=== PATIENT | female | born 1975 | race Caucasian/White ===

== ENCOUNTER 2020-09-07 10:55 | Outpatient (REF) | payer BC, SELFPAY ==
--- NOTE | 2020-09-07 11:00 | MM_ITS ---
EXAMINATION: MM DIAGNOSTIC DIGITAL BREAST TOMOSYNTHESIS, BILATERAL CLINICAL INFORMATION: Probable benign asymmetric density lateral right breast initially noted at baseline exam. Due for yearly. No known family history breast cancer. The lifetime risk of breast cancer based on the Tyrer-Cuzick Model is 12%. COMPARISON: Mammography: 09/02/2019, 02/11/2019, 07/23/2018, 07/09/2018 (BI-RADS 0). TECHNIQUE: Digital breast tomosynthesis is performed in both the craniocaudal and mediolateral oblique views along with computer-aided detection (CAD). Synthesized 2D images are generated from the tomosynthesis. FINDINGS: There are scattered areas of fibroglandular density (ACR BI-RADS breast composition Category b). Parenchymal pattern is similar to prior studies. Island fibroglandular tissue versus intramammary node outer right breast is stable since initial baseline exam 2017. This is considered benign. Other fibroglandular densities are also similar to prior studies. There is no developing density or interval mass or architectural abnormality. No abnormal calcifications. Results are provided to the patient at time of visit by the technologist. MM/MM tomosynthesis diagnostic BI IMPRESSION: No mammographic evidence of malignancy. ASSESSMENT: BI-RADS 2: Benign RECOMMENDATION: Routine annual mammography screening. This patient's information was entered into a reminder system with a target due date for their next mammogram.
== END 2020-09-07 10:56 | disposition home or self-care (01) ==
LOC: HO.MAMMO 10:55
PROVIDERS: PCP Internal Medicine; Visit Provider Internal Medicine
DX: R92.2 Inconclusive mammogram (principal)
CPT/HCPCS: 77062; 77066

== ENCOUNTER 2020-12-14 10:19 | Outpatient (REF) | payer BC, SELFPAY ==
[2020-12-14 10:48] LABS: MANUAL DIFF FLAG NO
[2020-12-14 10:53] LABS: Basophils Absolute Auto 0.1 X10*3/uL (0.0-0.2); Basophils Percent Auto 0.8 % (0-2); Eosinophils Absolute Auto 0.2 X10*3/uL (0.0-0.4); Eosinophils Percent Auto 2.8 % (0-4); Hematocrit 41.5 % (37-47); Hemoglobin 13.1 g/dl (12.0-16.0); Imm Gran Abs Auto 0.02 X10*3/uL (0.00-0.03); Imm Gran Pct Auto 0.3 % (0.0-0.4); Lymphocytes Absolute Auto 2.1 X10*3/uL (1.2-4.9); Lymphocytes Percent Auto 32.7 % (20-40); Mean Corpuscular HGB Conc 31.6 g/dl (31.0-35.0); Mean Corpuscular Hemoglobin 28.2 pg (27.0-33.0); Mean Corpuscular Volume 89.4 fL (80-98); Monocytes Absolute Auto 0.5 X10*3/uL (0.1-1.2); Monocytes Percent Auto 7.6 % (2-11); Neutrophils Absolute Auto 3.6 X10*3/uL (2.0-8.3); Neutrophils Percent Auto 55.8 % (45-73); Platelet Count 245 X10*3/uL (160-400); Red Blood Count 4.64 X10*6/uL (4.20-5.50); Red Cell Distribution Width 12.7 % (11.0-16.0); White Blood Count 6.5 X10*3/uL (4.8-10.8)
[2020-12-14 11:31] LABS: Alanine Aminotransferase 15 U/L (0-31); Albumin Level 4.3 g/dL (3.5-5.0); Alkaline Phosphatase 54 U/L (39-117); Anion Gap 11 (12-20); Aspartate Amino Transferase 15 U/L (5-31); Bilirubin Total 0.7 mg/dL (0.0-1.0); Blood Urea Nitrogen 13 mg/dL (9-16); Calcium 8.7 mg/dL (8.4-10.2); Carbon Dioxide 29 mmol/L (22-29); Chloride 104 mmol/L (96-108); Cholesterol 164 mg/dL; Estimated Glomerular Filt Rate > 60; Glucose Random 90 mg/dL (60-115); HDL Cholesterol 44 mg/dL; LDL Cholesterol Calculated 103 mg/dl; Potassium 4.6 mmol/L (3.3-5.1); Sodium 139 mmol/L (135-145); Total Protein 7.3 g/dL (6.5-8.0); Triglycerides 85 mg/dL
[2020-12-14 11:42] LABS: Free T4 (Free Thyroxine) 0.85 ng/dL (0.71-1.85); Thyroid Stimulating Hormone 1.76 uIU/mL (0.32-4.0); Vitamin D 25-OH Total 18.8 ng/mL (>30)
[2020-12-14 11:48] LABS: Glucose Urine UA NEG (NEG); Leukocyte Esterase Urine NEG (NEG); Nitrite Urine NEG (NEG); Specific Gravity - Urine >= 1.030 (1.005-1.025); Urine Blood NEG (NEG); Urine Ketones NEG (NEG); Urine Protein NEG (NEG-TRACE)
[2020-12-14 11:49] LABS: Appearance Urine CLEAR; Color Urine YELLOW
[2020-12-14 12:01] LABS: Bacteria Urine TRACE /LPF; Mucus Urine 2+ /LPF; RBC Urine 0-2 /HPF (0); Squamous Epithelial Cell Urine 1+ /LPF
[2020-12-17 16:04] LABS: Folate 16.8 ng/mL (> or = 4.0); Vitamin B12 460 pg/mL (200-900)
== END 2020-12-14 10:20 | disposition home or self-care (01) ==
LOC: HO.LAB 10:19
PROVIDERS: PCP Internal Medicine; Visit Provider Internal Medicine
DX: Z00.00 Encounter for general adult medical examination without abnormal findings (principal); E78.00 Pure hypercholesterolemia, unspecified
CPT/HCPCS: 36415; 80053; 80061; 81001; 82306; 82607; 82746; 84439; 84443; 85025

== ENCOUNTER 2021-11-28 12:29 | Outpatient (REF) | payer OTHER, SELFPAY ==
--- NOTE | ~2021-11-28 | MM_ITS ---
EXAMINATION: MM SCREENING DIGITAL BREAST TOMOSYNTHESIS, BILATERAL CLINICAL INFORMATION: Screening. Asymptomatic. The lifetime risk of breast cancer based on the Tyrer-Cuzick Model is 12.5%. COMPARISON: Mammography: September 07, 2020 and studies dating back to July 09, 2018 TECHNIQUE: Digital breast tomosynthesis is performed in both the craniocaudal and mediolateral oblique views along with computer-aided detection (CAD). Synthesized 2D images are generated from the tomosynthesis. FINDINGS: There are scattered areas of fibroglandular density (ACR BI-RADS breast composition Category b). There are no significant masses, abnormal calcifications, or other abnormalities. Question region of increased density about the lateral aspect of the right breast is seen to represent superimposition of fibroglandular tissue and vessels on yadira symphysis views. MM/MM tomosynthesis screening BI IMPRESSION: There are no significant changes from prior study. ASSESSMENT: BI-RADS 1: Negative RECOMMENDATION: Routine annual mammography screening. This patient's information was entered into a reminder system with a target due date for their next mammogram.
== END 2021-11-28 12:30 | disposition home or self-care (01) ==
LOC: HO.MAMMO 12:29
PROVIDERS: Visit Provider Internal Medicine
DX: Z12.31 Encounter for screening mammogram for malignant neoplasm of breast (principal)
CPT/HCPCS: 77063; 77067

== ENCOUNTER → 2022-04-03 07:54 | Outpatient (REF) | payer OTHER, SELFPAY ==
--- NOTE | 2022-04-03 08:02 | ECG_ITS ---
Test Reason : sob Blood Pressure : / mmHG Vent. Rate : 066 BPM Atrial Rate : 066 BPM P-R Int : 162 ms QRS Dur : 074 ms QT Int : 418 ms P-R-T Axes : 041 031 033 degrees QTc Int : 438 ms Normal sinus rhythm Normal ECG No previous ECGs available Referred By: Merlin Wilder Electronically Signed By:HILARIO JIN
== END ==
LOC: HO.CARD 07:54
PROVIDERS: PCP Internal Medicine; Visit Provider Internal Medicine
DX: R06.02 Shortness of breath (principal)
CPT/HCPCS: 93005

== ENCOUNTER → 2022-04-04 07:44 | Outpatient (REF) | payer OTHER, SELFPAY ==
--- NOTE | 2022-04-04 07:46 | CA_ITS ---
Acquisition Time: 2022-04-04 08:04:59 Total Exercise Time: 00:10:00 Test Indications: SOB Medications: SEE CHART Protocol: RHETT Max HR: 176 BPM 101% of Pred: 174 BPM Max BP: 190/080 mmHG Max Work Load: 11.8 METS Exercise stress test with exercise 10 min of Rhett protocol, achieving 98% without anginal symptoms, without arrythmia, with normotensive response to exercise, without EKG changes meeting criteria for ischemia. Test reviewed with Dr Tate. Referred By: Merlin Wilder Overread By: CLAUDIA RED
== END ==
LOC: HO.CARD 07:44
PROVIDERS: PCP Internal Medicine; Visit Provider Internal Medicine
DX: R06.02 Shortness of breath (principal)
CPT/HCPCS: 93017

== ENCOUNTER 2022-11-11 13:43 | Outpatient (REF) | payer OTHER, SELFPAY ==
[2022-11-11 13:52] LABS: MANUAL DIFF FLAG NO
[2022-11-11 15:00] LABS: Basophils Absolute Auto 0.1 X10*3/uL (0.0-0.2); Basophils Percent Auto 0.6 % (0-2); Eosinophils Absolute Auto 0.4 X10*3/uL (0.0-0.4); Eosinophils Percent Auto 4.1 % (0-4); Hematocrit 43.6 % (37.0-47.0); Hemoglobin 13.9 g/dl (12.0-16.0); Imm Gran Abs Auto 0.04 X10*3/uL (0.00-0.03); Imm Gran Pct Auto 0.4 % (0.0-0.4); Lymphocytes Absolute Auto 3.2 X10*3/uL (1.2-4.9); Lymphocytes Percent Auto 32.3 % (20-40); Mean Corpuscular HGB Conc 31.9 g/dl (31.0-35.0); Mean Corpuscular Hemoglobin 28.8 pg (27.0-33.0); Mean Corpuscular Volume 90.5 fL (80.0-98.0); Mean Platelet Volume 10.3 fL (9.4-12.3); Monocytes Absolute Auto 0.7 X10*3/uL (0.1-1.2); Monocytes Percent Auto 7.5 % (2-11); Neutrophils Absolute Auto 5.5 x10*3/uL (2.0-8.3); Neutrophils Percent Auto 55.1 % (45-73); Platelet Count 260 X10*3/uL (160-400); Red Blood Count 4.82 X10*6/uL (4.20-5.50); Red Cell Distribution Width 12.8 % (11.0-16.0); White Blood Count 9.9 X10*3/uL (4.8-10.8)
[2022-11-11 15:43] LABS: Alanine Aminotransferase 18 U/L (0-31); Albumin Level 4.3 g/dL (3.5-5.0); Alkaline Phosphatase 49 U/L (39-117); Anion Gap 10 (12-20); Aspartate Amino Transferase 16 U/L (5-31); Bilirubin Total 0.4 mg/dL (0.0-1.0); Blood Urea Nitrogen 11 mg/dL (9-16); Calcium 9.1 mg/dL (8.4-10.2); Carbon Dioxide 29 mmol/L (22-29); Chloride 106 mmol/L (96-108); Estimated Glomerular Filt Rate 60; Glucose Random 87 mg/dL (60-115); Potassium 5.2 mmol/L (3.3-5.1); Sodium 140 mmol/L (135-145); Thyroid Stimulating Hormone 1.59 uIU/mL (0.32-4.0); Total Protein 7.2 g/dL (6.5-8.0)
== END 2022-11-11 13:44 | disposition home or self-care (01) ==
LOC: HO.LAB 13:43
PROVIDERS: PCP Internal Medicine; Visit Provider Physician Assistant
DX: D68.51 Activated protein C resistance (principal)
CPT/HCPCS: 36415; 80053; 84443; 85025

== ENCOUNTER 2023-01-26 10:08 | Day surgery (SDC) | payer OTHER, SELFPAY ==
[2023-01-20 19:01] VITALS: BMI 27.4
--- NOTE | 2023-01-23 12:26 | HO.ANESPROP2 ---
Documented by User: Camila Avalos NP 01/23/23 12:28 HPI - Anesthesia Eval Consult details Narrative: 47yo F for Colonoscopy Factor V with hx PE - asa PMFSH Active Problems Active Problems: All Active Problems (Updated 12/15/22 @ 17:51 by Merlin Wilder MD) Hyperkalemia (Acute) Varicose vein of leg (Acute) Eczema (Acute) Factor 5 Leiden mutation, heterozygous (Acute) SOB (shortness of breath) on exertion (Acute) Recurrent major depression (Acute) Overweight (BMI 25.0-29.9) (Acute) Colon cancer screening (Acute) Right-sided chest pain (Acute) Vitamin D deficiency (Acute) Generalized anxiety disorder (Acute) Achilles tendinitis of both lower extremities (Acute) Annual physical exam (Acute) Past Medical History Medical History (Updated 12/15/22 @ 17:51 by Merlin Wilder MD) Endocervical polyp Factor 5 Leiden mutation, heterozygous History of pulmonary embolism Family History Family History Father Kamran cell carcinoma Stroke Mother Stroke Diabetes Myocardial infarction Brother Leukemia Paternal Aunt Leukemia Esophageal cancer Paternal Uncle Leukemia Surgical History Surgical History Lumbar disc herniation Social History Social History (Updated 12/15/22 @ 17:24 by Merlin Wilder MD) Household Members Other:: niece Housing: House Are you a primary rn primary care to a significant other at home: No Do you presently have visiting nurse or other home services: No Alcohol intake: current Alcohol intake frequency: holidays/special occasions only Patient Tobacco Use Status: Never used Tobacco Smoked in Last 30 Days: No e-Cigarette/Vaping Use: Never Used Second Hand Smoke Exposure: No Use of substances other than those prescribed or required for medical reasons: No Have you been hit, kicked, punched, or otherwise hurt by someone within the past year? If so, by whom?: No [facility] Healthcare Practices: Orthodox Are you DNR?: No Advance Directives: No Advance Directives Information Provided: Yes Recently lost weight without trying: No How much weight loss: Not applicable Eating poorly because of decreased appetite: No Nutrition screen score: 0 Nutrition Risks: No Nutritional Risk Patient : No : No Poor oral hygiene: No Current occupational status: employed Cognitive needs: No Hearing needs: No Vision needs: No Meds Allergies Allergy/AdvReac Type Severity Reaction Status Date / Time sertraline AdvReac Intermediate memory Verified 12/15/22 17:04 issues Home Medications Medication Instructions Recorded Confirmed Last Taken Type aspirin 81 mg tablet,delayed 81 mg PO DAILY 12/13/21 01/21/23 Unknown History release (Adult Aspirin Regimen) vitamins no.121-iron 28 1 tab PO DAILY 04/10/22 01/21/23 Unknown History mg-folic acid 800 mcg tablet Exam Exam Date and Time: January 23, 2023 1226 Height,Weight and Vital Signs: Height 5 ft 6 in Weight 77.111 kg Pertinent Lab Results Pertinent Lab Results: Laboratory Tests 11/11/22 11/11/22 13:51 13:51 WBC 9.9 Hgb 13.9 Hct 43.6 Plt Count 260 Sodium 140 Potassium 5.2 H Chloride 106 Carbon Dioxide 29 BUN 11 Creatinine 1.00 Assessment and Plan Assessment Anesthesia Assessment: Chart Reviewed Documented by User: Oumou Mejia MD 01/26/23 11:01 [facility] Past Medical History Medical History (Updated 12/15/22 @ 17:51 by Merlin Wilder MD) Endocervical polyp Factor 5 Leiden mutation, heterozygous History of pulmonary embolism Family History Family History Father [place] cell carcinoma Stroke Mother Stroke Diabetes Myocardial infarction Brother Leukemia Paternal Aunt Leukemia Esophageal cancer Paternal Uncle Leukemia Family history of problems with anesthesia: No Surgical History Surgical History Lumbar disc herniation History of Problems with Anesthesia: No Social History Social History (Updated 12/15/22 @ 17:24 by Merlin Wilder MD) Household Members Other:: niece Housing: House Are you a primary rn primary care to a significant other at home: No Do you presently have visiting nurse or other home services: No Alcohol intake: current Alcohol intake frequency: holidays/special occasions only Patient Tobacco Use Status: Never used Tobacco Smoked in Last 30 Days: No e-Cigarette/Vaping Use: Never Used Second Hand Smoke Exposure: No Use of substances other than those prescribed or required for medical reasons: No Have you been hit, kicked, punched, or otherwise hurt by someone within the past year? If so, by whom?: No [facility] Healthcare Practices: Orthodox Are you DNR?: No Advance Directives: No Advance Directives Information Provided: Yes Recently lost weight without trying: No How much weight loss: Not applicable Eating poorly because of decreased appetite: No Nutrition screen score: 0 Nutrition Risks: No Nutritional Risk Patient : No : No Poor oral hygiene: No Current occupational status: employed Cognitive needs: No Hearing needs: No Vision needs: No Meds Allergies Allergy/AdvReac Type Severity Reaction Status Date / Time sertraline AdvReac Intermediate memory Verified 12/15/22 17:04 issues Home Medications Medication Instructions Recorded Confirmed Last Taken Type aspirin 81 mg tablet,delayed 81 mg PO DAILY 12/13/21 01/21/23 Unknown History release (Adult Aspirin Regimen) vitamins no.121-iron 28 1 tab PO DAILY 04/10/22 01/21/23 Unknown History mg-folic acid 800 mcg tablet Exam Airway Mallampati Class: II TM Dist: >3cm Neck ROM: Full Heart: rrr Lungs: cta Assessment and Plan Assessment Anesthesia Assessment: Anesthesia Plan Discussed Final Anesthetic Review Family History of Problems with Anesthesia: No History of Problems with Anesthesia: No NPO: Yes ASA Class: II Final Preanesthetic Review: No Changes in Pt Med Stat, Meds/Allgs Chart Reviewed and Consent Obtained/Reviewed Patient Risk: Intermediate Procedure Risk: Intermediate Anesthetic Plan Anesthetic Plan: MAC: Disposition: Standard PACU
[2023-01-26 10:56] VITALS: BP 127/84; PULSE 80; RESP 18; TEMP 37.3; O2SAT 99
[2023-01-26] MEDS: Lactated Ringers 1,000 ML 100 ML IVCONT (10:58)
[2023-01-26 11:02] LABS: UPreg QC Valid YES; Urine Pregnancy NEGATIVE (NEGATIVE)
--- NOTE | 2023-01-26 11:04 | MHC.SHP ---
Pre-Procedural Eval Section A Date of Service: 01/26/23 The patient is an INPATIENT: No The History & Physical has been completed within 30 days and I have reviewed it.: No Section B Chief Complaint: screening Details of Present Illness: Colon cancer screening Relevant Family History (Specify if Yes): No Relevant Social History: None Present Medications: see Short Stay Collaborative assessment Medical History: Significant History (Endocervical polyp Factor 5 Leiden mutation, heterozygous History of pulmonary embolism) History of Previous Operations: Relevant previous surgery/procedure and date(s) (Lumbar disc herniation) Allergies: Allergies Allergy/AdvReac Type Severity Reaction Status Date / Time sertraline AdvReac Intermediate memory Verified 12/15/22 17:04 issues Review of Systems Sugical H&P ROS: Negative: Constitution, Cardiovascular, Respiratory and Gastrointestinal Exam Surgical H&P Exam: Normal: Heart, Normal: Lungs, Normal: Extremities and Normal: Abdomen Plan Diagnosis/Plan: Unchanged I have reviewed the history and physical and performed a pertinent physical examination on my patient. No changes have occurred unless specified. Time Spent With Patient Time: Total time managing care of this patient today ____ minutes.
--- NOTE | 2023-01-26 11:11 | P.BOP_ITS ---
Brief Operative Note Date of Service: 01/26/23 Pre-op diagnosis: Colon cancer screening (1st colonoscopy) Post-op diagnosis: other (Colon polyp, diverticulosis, hemorrhoids) Procedure: COLONOSCOPY TILL CECUM WITH BIOPSIES Surgeon: Brooke Queen MD Anesthesia: MAC Was an Associate Account Executive used for this Procedure?: Yes Associate Account Executive: Jimi Ryan Estimated blood loss (mL): 0 Pathology: other (A- TRANSVERSE COLON POLYP) Condition: stable Disposition: PACU
--- NOTE | 2023-01-26 11:12 | W.PM.OPN ---
Operative Note Operative Note Date of Service: 01/26/23 Narrative: COLONOSCOPY TILL CECUM WITH BIOPSIES Indication:? Colon cancer screening Endoscopist:? Brooke Queen MD Anesthesia Provider:?Dr Alvarado Anesthesia type:?MAC Consent: Indications for the procedure and potential complications of bleeding, perforation, reaction to medications and missed diagnosis were discussed with the patient and informed consent was obtained. Instrument: Olympus PCF H 190 L variable stiffness pediatric colonoscope Monitoring: Vital signs and clinical assessment, intermittent blood pressure monitoring, continuous EKG monitoring, Pulse oximetry and Carbon Dioxide monitoring were done throughout the procedure. Please see anesthesia flowsheet. Colon withdrawl time was 16 minutes. Procedure: The patient was placed in the left lateral decubitis position and pre-procedure medications were administered. After a digital rectal examination of the ano-rectum, the video colonoscope was inserted into the rectum and advanced through the colon to the cecum. The colonoscope was slowly withdrawn in a retrograde panoramic fashion and the colon mucosa was carefully examined including a retroflexed view of the rectum. Findings and interventions are described below. Procedure Difficulty: Without difficulty Findings: Terminal Ileum: Not evaluated Cecum: Normal Ascending Colon: Normal Transverse Colon: a 3-4 mm sessile polyp -removed with a cold bx Descending Colon: Moderate diverticulosis Sigmoid Colon: Moderate diverticulosis Rectum: Normal Ano-rectum: Small internal hemorrhoids Colon preparation: Good Impression and Post Procedure Diagnosis: Colonoscopy Findings: One small polyp removed Moderate diverticulosis seen in the left colon Small hemorrhoids on retroflexed exam. Plan: Await pathology results Patient has an appointment on 02/09/23 in the GI Clinic with ROMEO Naqvi. Repeat Colonoscopy interval based on path results - in 5 years if polyps are adenomatous and 10 years if polyps are hyperplastic. Above findings were reviewed with the patient and colon polyps and diverticulosis handouts were given in the discharge area
[2023-01-26 11:45] VITALS: BP 99/60; PULSE 82; RESP 16; TEMP 36.5; O2SAT 95
[2023-01-26 12:00] VITALS: BP 104/67; PULSE 56; RESP 16; O2SAT 99
[2023-01-26 12:15] VITALS: BP 116/68; PULSE 55; RESP 16; TEMP 36.4; O2SAT 99
== END 2023-01-26 13:09 | disposition home or self-care (01) ==
PROVIDERS: Nurse Practitioner; PCP Internal Medicine; Visit Provider Internal Medicine Gastroenterology
PROC: 0DJD8ZZ Inspection of Lower Intestinal Tract, Via Natural or Artificial Opening Endoscopic (ICD-10-PCS; CPT 45378; principal; 2023-01-26 12:10)
DX: Z12.11 Encounter for screening for malignant neoplasm of colon (principal); K57.30 Diverticulosis of large intestine without perforation or abscess without bleeding; K63.5 Polyp of colon; K64.8 Other hemorrhoids; D68.51 Activated protein C resistance; Z86.711 Personal history of pulmonary embolism; Z79.82 Long term (current) use of aspirin; Z79.899 Other long term (current) drug therapy; Z88.8 Allergy status to other drugs, medicaments and biological substances
CPT/HCPCS: 45380; 81025; 88305

== ENCOUNTER → 2023-02-09 07:38 | Outpatient (BNVA) | payer OTHER, SELFPAY | PROVIDERS: PCP Internal Medicine; Referring Provider Internal Medicine; Visit Provider Physician Assistant | DX: Z13.89 Encounter for screening for other disorder (principal) ==

== ENCOUNTER 2023-05-01 09:09 | Outpatient (REF) | payer OTHER, SELFPAY ==
--- NOTE | ~2023-05-01 | XR_ITS ---
EXAMINATION: XR CHEST CLINICAL INFORMATION: Bronchitis COMPARISON: None TECHNIQUE: 2 views of the chest were obtained. FINDINGS: No significant abnormality is noted involving the heart, lungs, mediastinum, bony thorax or soft tissues. XR/XR chest 2V IMPRESSION: Unremarkable examination.
== END 2023-05-01 09:10 | disposition home or self-care (01) ==
LOC: HO.XRAY 09:09
PROVIDERS: PCP Internal Medicine; Visit Provider Nurse Practitioner Family
DX: J40 Bronchitis, not specified as acute or chronic (principal)
CPT/HCPCS: 71046

== ENCOUNTER 2023-05-26 13:33 | Outpatient (REF) | payer OTHER, SELFPAY ==
--- NOTE | 2023-05-26 16:25 | PFT_ITS ---
INDICATION: Dyspnea. TEST COMMENTS: This was a very difficult study for the patient. Good effort. SPIROMETRY: FEV1 to FVC of 79% with an FEV1 of 2.27 L, which is 105% predicted and FVC of 2.87 L which is 107% predicted. No significant response to bronchodilators noted. Maximum voluntary ventilation 71% predicted. LUNG VOLUMES: Total lung capacity 142% predicted with a residual volume of 237% predicted. DIFFUSION CAPACITY: DLCO 123% predicted. COMPARISON: Not available. INTERPRETATION: No obstructive nor restrictive ventilatory defects identified. No significant response to bronchodilators noted. The patient does have significant air trapping with hyperinflation which could be secondary to underlying small airway disease. The patient has normal diffusion capacity. If asthma is in you differential, methacholine challenge may be helpful in assessing for hyperreactive airways in diagnosis of asthma. Clinical correlation warranted. MD INDY Turner/MODNathalie / [id number]
== END 2023-05-26 13:34 | disposition home or self-care (01) ==
LOC: HO.RESP 13:33
PROVIDERS: PCP Internal Medicine; Visit Provider Nurse Practitioner Family
DX: R05.9 Cough, unspecified (principal)
CPT/HCPCS: 94010; 94727; 94729

== ENCOUNTER → 2023-05-26 16:25 | Outpatient (BNV) | payer OTHER, SELFPAY | PROVIDERS: PCP Internal Medicine; Visit Provider Hospitalist | DX: R06.09 Other forms of dyspnea (principal) | CPT/HCPCS: 94060; 94727; 94729 ==

== ENCOUNTER 2023-06-30 15:21 | Outpatient (AMB) | payer OTHER, SELFPAY ==
--- NOTE | 2023-06-30 15:26 | MHC.OFFVIS ---
Intake Vital Signs 06/30/23 15:28 Height 5 ft 6 in Weight 173 lb 1.006 oz BMI 27.9 BP 112/64 Blood Pressure Location Lt brachial Position Sitting Pulse 63 Pulse Source Pulse Oximeter Pulse Oximetry (%) 99 Oxygen Delivery Method Room Air Intake Visit Reasons: Asthma Stamping Press Operator Required: No Orthotics Prosthetics Assistant: Orthotics Prosthetics Assistant offered & declined Accompanied by: Self / Same As Patient Allergies sertraline Adverse Reaction (Intermediate, Verified 06/30/23 15:32) memory issues Medication List - Last Reconciled 06/30/23 by Kellie Martinez LPN albuterol sulfate 90 mcg/actuation (Ventolin HFA) 2 puffs inhalation Q4-6H PRN aspirin (Adult Aspirin Regimen) 81 mg PO DAILY fexofenadine (Lisa Allergy) 180 mg PO DAILY PNV no.004-gytj-riysp acid 28 mg iron- 800 mcg 1 tab PO DAILY HPI Asthma HPI Details Xochitl is a pleasant 47 year old, never smoker, with chronic cough. She was referred by her PCP for pulmonary evaluation. She reports respiratory symptoms that started after an URI in October 2022. She reports dry cough and wheezing with associated dyspnea after coughing fits. She has tried OTC medications including antihistamines with no improvement. She was prescribed albuterol which she uses up to TID with good effect and also noted some improvement after prednisone. Prior to 10/2022, she denied any respiratory symptoms. She denies any family history of lung conditions. She denies any occupational exposures. She denies any allergy symptoms. She does have one dog at home. She did have a recent PFT, but unfortunately it appears as though there was an issue performing the test, so the results do not appear accurate. She will need to have another PFT scheduled. She had recent CXR which was unremarkable. [facility] Medical History Endocervical polyp Factor 5 Leiden mutation, heterozygous History of pulmonary embolism Surgical History Hx of colonoscopy Lumbar disc herniation Family History Father Kamran cell carcinoma Stroke Mother Stroke Diabetes Myocardial infarction Brother Leukemia Paternal Aunt Leukemia Esophageal cancer Paternal Uncle Leukemia Social History Household Members Other:: niece Housing: House Are you a primary home health care case manager to a significant other at home: No Do you presently have visiting nurse or other home services: No Alcohol intake: current Alcohol intake frequency: holidays/special occasions only Patient Tobacco Use Status: Never used Tobacco e-Cigarette/Vaping Use: Never Used Second Hand Smoke Exposure: No service: No Current occupational status: employed 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 Cognitive needs: No Hearing needs: No Vision needs: No Review of Systems Const Denies chills, Denies excessive sweating, Denies fever(s), Denies headache(s) and Denies night sweats Eyes Denies dry eyes, Denies irritation and Denies itchy eyes ENT Reports Normal hearing present, Denies headache(s), Denies nasal congestion, Denies nasal discharge, Denies post nasal drip and Denies sore throat Card Denies chest pain, Denies chest pain at rest, Denies chest pain with activity, Denies claudication, Denies leg edema, Denies dyspnea on exertion, Denies orthopnea and Denies paroxysmal nocturnal dyspnea Resp Denies chest congestion, Denies excessive phlegm production, Denies pain on inspiration, Denies pain with cough, Denies dyspnea on exertion and Denies stridor Musc Denies myalgias Neuro Reports Normal hearing present and Denies headache(s) Endo Denies excessive sweating Te/Lymph Denies lymphadenopathy Aller/Immun Denies itchy eyes and Denies seasonal rhinorrhea Physical Exam Vital Signs: Last Vital Signs Pulse 63 06/30/23 15:28 BP 112/64 06/30/23 15:28 Pulse Ox 99 06/30/23 15:28 Oxygen Delivery Method Room Air 06/30/23 15:28 BMI result Body Mass Index 27.9 Const General: cooperative, healthy appearing, comfortable, no acute distress, well developed and alert Orientation/consciousness: patient oriented x3 Limitations: no limitations HEENT Head: Yes normal to inspection, Yes normocephalic and Yes atraumatic Ears: hearing grossly normal bilaterally and external ears normal Eyes General: appearance normal, both eyes and all related structures Eyelids: Yes eyelids normal Sclerae: sclerae normal EOM: EOMs intact bilaterally Neck Neck: Yes normal visual inspection and Yes no lymphadenopathy Lymphatic: no lymphadenopathy noted Chest Chest palpation & inspection: normal inspection of the chest Resp Effort & Inspection: normal respiratory effort, able to speak in complete sentences, no audible wheezes, no cough, no stridor, not tachypneic, no tripod positioning and no use of accessory muscles Auscultation: clear to auscultation bilaterally Cardio Jugular venous distension: no JVD Rate: regular rate Rhythm: regular rhythm Skin Other: warm, dry General skin exam: no rashes or lesions noted Neuro General: patient oriented x3 Cranial nerves: Yes Normal hearing present Cognition (Neuro): normal cognition Gait exam (Neuro): Normal gait present Extrem General: Yes normal to inspection, Yes capillary refill normal, Yes no clubbing, cyanosis or edema and Yes no pedal edema Psych Appearance: grossly normal and well kempt Speech and movement: Normal speech and movement present and Clear speech present Affect: normal affect Attitude: cooperative Thought process: Normal thought process present Thought content: Normal thought content present Insight: Good insight present (Psych) Judgement: Good judgement present (Psych) Results Reviewed Results Reviewed: [place] [id number] XRay Report Signed Patient: Xochitl Dinh MR#: [id number] : 1975 Acct:[id number] Age/Sex: 47 / F ADM Date: 05/01/23 Loc: [facility] Attending Dr: Noreen MONTANO Ordering Physician: Noreen Caba Date of Service: 05/01/23 Procedure(s): XR chest 2V Accession Number(s): [id number] cc: Noreen Caba~ EXAMINATION: XR CHEST CLINICAL INFORMATION: Bronchitis COMPARISON: None TECHNIQUE: 2 views of the chest were obtained. FINDINGS: No significant abnormality is noted involving the heart, lungs, mediastinum, bony thorax or soft tissues. XR/XR chest 2V IMPRESSION: Unremarkable examination. Assessment & Plan Assessment & Plan (1) Cough: Code(s): R05.9 - Cough, unspecified Plan Will resend patient for PFT to assess for obstructive or restrictive defect, as previous PFT revealed some inaccuracies. Symptoms may be suggestive of cough variant asthma. Will empirically send in Breo and advised to use albuterol PRN. If no improvements with Breo, will consider chest CT, as CXR unremarkable. Inhaler technique and oral hygiene reviewed. All questions were answered and patient is in agreement of plan. Will follow up after results. Orders: Orders PFT pulmonary function test Today R05.9 - Cough, unspecified Medications: New fluticasone furoate-vilanterol 100-25 mcg/dose (Breo Ellipta) 1 inh inhalation DAILY 60 ea 3RF Refilled albuterol sulfate 90 mcg/actuation (Ventolin HFA) 2 puffs inhalation Q4-6H PRN 2 ea 1RF shortness of breath or wheezing J40 - Bronchitis, not specified as acute or chronic Coding Level of Care Code New Pt Level 3 (50454) Diagnoses Cough R05.9
[2023-06-30 15:28] VITALS: BP 112/64; PULSE 63; O2SAT 99; BMI 27.9
== END 2023-06-30 16:00 | disposition home or self-care (01) ==
PROVIDERS: PCP Internal Medicine; Referring Provider Nurse Practitioner Family; Visit Provider Nurse Practitioner Family
DX: R05.9 Cough, unspecified (principal)
CPT/HCPCS: 99203

== ENCOUNTER → 2023-06-30 15:21 | Outpatient (BNVA) | payer OTHER, SELFPAY | PROVIDERS: PCP Internal Medicine; Visit Provider Nurse Practitioner Family ==

== ENCOUNTER 2023-08-03 10:48 | Outpatient (AMB) | payer OTHER, SELFPAY ==
--- NOTE | 2023-08-03 10:54 | A.OFFVIS_ITS ---
Intake Vital Signs 3 08/03/23 10:55 Height 5 ft 6 in Weight 176 lb BMI 28.4 BP 126/70 Blood Pressure Location Rt brachial Position Sitting Pulse 83 Pulse Source Pulse Oximeter Pulse Oximetry (%) 97 Oxygen Delivery Method Room Air Intake Visit Reasons: PFT results Risk And Insurance Manager Required: No Plaster Form Maker: Plaster Form Maker offered & declined Accompanied by: Self / Same As Patient Allergies sertraline Adverse Reaction (Intermediate, Verified 08/03/23 10:57) memory issues Medication List - Last Reconciled 08/03/23 by Kellie Martinez LPN albuterol sulfate 90 mcg/actuation (Ventolin HFA) 2 puffs inhalation Q4-6H PRN aspirin (Adult Aspirin Regimen) 81 mg PO DAILY fexofenadine (Lisa Allergy) 180 mg PO DAILY fluticasone furoate-vilanterol 100-25 mcg/dose (Breo Ellipta) 1 inh inhalation DAILY PNV no.[id number] 28 mg iron- 800 mcg 1 tab PO DAILY HPI PFT results 2 HPI0 Details Xochitl is a pleasant 47 year old, never smoker, with underlying asthma. She reported persistent dry cough after URI in october 2022 with associated wheezing and intermittent chest tightness. At the last visit she was sent for a repeat PFT and empirically prescribed Breo. She reports starting the Breo less than two weeks ago but has noticed a decreased in cough and chest tightness. She does however report throat irritation with the dry powder inhaler. Today she presents to review PFT results. [facility] Medical History Endocervical polyp Factor 5 Leiden mutation, heterozygous History of pulmonary embolism Surgical History Hx of colonoscopy Lumbar disc herniation Family History Father [place] cell carcinoma Stroke Mother Stroke Diabetes Myocardial infarction Brother Leukemia Paternal Aunt Leukemia Esophageal cancer Paternal Uncle Leukemia Social History (Updated 08/03/23 @ 10:58 by Kellie Martinez LPN) Household Members Other:: niece Housing: House Are you a primary home health care social worker to a significant other at home: No Do you presently have visiting nurse or other home services: No Alcohol intake: current Alcohol intake frequency: holidays/special occasions only Patient Tobacco Use Status: Never used Tobacco e-Cigarette/Vaping Use: Never Used Second Hand Smoke Exposure: No service: No Current occupational status: employed 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 Cognitive needs: No Hearing needs: No Vision needs: No Review of Systems Const Denies chills, Denies excessive sweating, Denies fever(s), Denies headache(s) and Denies night sweats Eyes Denies dry eyes, Denies irritation and Denies itchy eyes ENT Reports Normal hearing present, Denies headache(s), Denies nasal congestion, Denies nasal discharge, Denies post nasal drip and Denies sore throat Card Denies chest pain, Denies chest pain at rest, Denies chest pain with activity, Denies claudication, Denies leg edema, Denies orthopnea and Denies paroxysmal nocturnal dyspnea Resp Denies chest congestion, Denies excessive phlegm production, Denies pain on inspiration, Denies pain with cough and Denies stridor Musc Denies myalgias Neuro Reports Normal hearing present and Denies headache(s) Endo Denies excessive sweating Te/Lymph Denies lymphadenopathy Aller/Immun Denies itchy eyes and Denies seasonal rhinorrhea Physical Exam Vital Signs: Last Vital Signs Pulse 83 08/03/23 10:55 BP 126/70 08/03/23 10:55 Pulse Ox 97 08/03/23 10:55 Oxygen Delivery Method Room Air 08/03/23 10:55 BMI result Body Mass Index 28.4 Const General: cooperative, healthy appearing, comfortable, no acute distress, well developed and alert Orientation/consciousness: patient oriented x3 Limitations: no limitations HEENT Head: Yes normal to inspection, Yes normocephalic and Yes atraumatic Ears: hearing grossly normal bilaterally and external ears normal Eyes General: appearance normal, both eyes and all related structures Eyelids: Yes eyelids normal Sclerae: sclerae normal EOM: EOMs intact bilaterally Neck Neck: Yes normal visual inspection and Yes no lymphadenopathy Lymphatic: no lymphadenopathy noted Chest Chest palpation & inspection: normal inspection of the chest Resp Effort & Inspection: normal respiratory effort, able to speak in complete sentences, no audible wheezes, no cough, no stridor, not tachypneic, no tripod positioning and no use of accessory muscles Auscultation: clear to auscultation bilaterally Cardio Jugular venous distension: no JVD Rate: regular rate Rhythm: regular rhythm Skin Other: warm, dry General skin exam: no rashes or lesions noted Neuro General: patient oriented x3 Cranial nerves: Yes Normal hearing present Cognition (Neuro): normal cognition Gait exam (Neuro): Normal gait present Extrem General: Yes normal to inspection, Yes capillary refill normal, Yes no clubbing, cyanosis or edema and Yes no pedal edema Psych Appearance: grossly normal and well kempt Speech and movement: Normal speech and movement present and Clear speech present Affect: normal affect Attitude: cooperative Thought process: Normal thought process present Thought content: Normal thought content present Insight: Good insight present (Psych) Judgement: Good judgement present (Psych) Results Reviewed Results Reviewed: Assessment & Plan Assessment & Plan (1) Asthma: Code(s): J45.909 - Unspecified asthma, uncomplicated (2) Cough: Code(s): R05.9 - Cough, unspecified Plan Reviewed PFT which was suggestive of asthma with positive bronchodilator response. She reported improvement in symptoms since starting Breo but has had intermittent throat irritation. Discussed switching to a mist inhaler but she would like to trial a few more weeks. Advised to continue Breo for another 2 weeks, if throat irritation continues she is aware to call so we can switch to a mist inhaler. All questions were answered and patient is in agreement of plan. Will follow up in 3 months or sooner if needed. Coding Level of Care Code Est Pt Level 4 (84817) Diagnoses Asthma J45.909 Cough R05.9
[2023-08-03 10:55] VITALS: BP 126/70; PULSE 83; O2SAT 97; BMI 28.4
== END 2023-08-03 11:27 | disposition home or self-care (01) ==
LOC: HO.HPSW 10:48
PROVIDERS: PCP Internal Medicine; Visit Provider Nurse Practitioner Family
DX: J45.909 Unspecified asthma, uncomplicated (principal); R05.9 Cough, unspecified
CPT/HCPCS: 99214

== ENCOUNTER 2023-11-03 09:44 | Outpatient (AMB) | payer OTHER, SELFPAY ==
--- NOTE | 2023-11-03 09:48 | A.OFFVIS_ITS ---
Intake Vital Signs 11/03/23 09:49 Height 5 ft 6 in Weight 175 lb BMI 28.2 BP 116/64 Blood Pressure Location Lt brachial Position Sitting Pulse 77 Pulse Oximetry (%) 99 Oxygen Delivery Method Room Air Intake Visit Reasons: COPD Film And Video Editor Required: No Business Services Intern: Business Services Intern offered & declined Accompanied by: Self / Same As Patient Allergies sertraline Adverse Reaction (Intermediate, Verified 11/03/23 09:53) memory issues Medication List - Last Reconciled 11/03/23 by Kellie Martinez LPN albuterol sulfate 90 mcg/actuation (Ventolin HFA) 2 puffs inhalation Q4-6H PRN aspirin (Adult Aspirin Regimen) 81 mg PO DAILY fluticasone furoate-vilanterol 100-25 mcg/dose (Breo Ellipta) 1 inh inhalation DAILY HPI COPD HPI Details Xochitl is a pleasant 47 year old, never smoker, with underlying asthma. She initially reported persistent dry cough after URI in october 2022 with associated wheezing and intermittent chest tightness. She was started on Breo with excellent control of symptoms. She reports intermittent cough however significantly less than prior. Previously she reported throat irritation with use but states this has resolved. Today she presents for routine follow up. [facility] Medical History Endocervical polyp Factor 5 Leiden mutation, heterozygous History of pulmonary embolism Surgical History Hx of colonoscopy Lumbar disc herniation Family History Father [place] cell carcinoma Stroke Mother Stroke Diabetes Myocardial infarction Brother Leukemia Paternal Aunt Leukemia Esophageal cancer Paternal Uncle Leukemia Social History (Updated 11/03/23 @ 09:55 by Kellie Martinez LPN) Household Members Other:: niece Housing: House Are you a primary rn critical care to a significant other at home: No Do you presently have visiting nurse or other home services: No Alcohol intake: current Alcohol intake frequency: holidays/special occasions only Patient Tobacco Use Status: Never used Tobacco e-Cigarette/Vaping Use: Never Used Second Hand Smoke Exposure: No service: No Current occupational status: employed 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 Cognitive needs: No Hearing needs: No Vision needs: No Review of Systems Const Denies chills, Denies excessive sweating, Denies fever(s), Denies headache(s) and Denies night sweats Eyes Denies dry eyes, Denies irritation and Denies itchy eyes ENT Reports Normal hearing present and Denies headache(s) Card Denies chest pain, Denies chest pain at rest, Denies chest pain with activity, Denies claudication, Denies leg edema, Denies orthopnea and Denies paroxysmal nocturnal dyspnea Resp Denies chest congestion, Denies excessive phlegm production, Denies pain on inspiration, Denies pain with cough and Denies stridor Musc Denies myalgias Neuro Reports Normal hearing present and Denies headache(s) Endo Denies excessive sweating Te/Lymph Denies lymphadenopathy Aller/Immun Denies itchy eyes and Denies seasonal rhinorrhea Physical Exam Vital Signs: Last Vital Signs Pulse 77 11/03/23 09:49 BP 116/64 11/03/23 09:49 Pulse Ox 99 11/03/23 09:49 Oxygen Delivery Method Room Air 11/03/23 09:49 BMI result Body Mass Index 28.2 Const General: cooperative, healthy appearing, comfortable, no acute distress, well developed and alert Orientation/consciousness: patient oriented x3 Limitations: no limitations HEENT Head: Yes normal to inspection, Yes normocephalic and Yes atraumatic Ears: hearing grossly normal bilaterally and external ears normal Eyes General: appearance normal, both eyes and all related structures Eyelids: Yes eyelids normal Sclerae: sclerae normal EOM: EOMs intact bilaterally Neck Neck: Yes normal visual inspection and Yes no lymphadenopathy Lymphatic: no lymphadenopathy noted Chest Chest palpation & inspection: normal inspection of the chest Resp Effort & Inspection: normal respiratory effort, able to speak in complete sentences, no audible wheezes, no cough, no stridor, not tachypneic, no tripod positioning and no use of accessory muscles Auscultation: clear to auscultation bilaterally Cardio Jugular venous distension: no JVD Rate: regular rate Rhythm: regular rhythm Skin Other: warm, dry General skin exam: no rashes or lesions noted Neuro General: patient oriented x3 Cranial nerves: Yes Normal hearing present Cognition (Neuro): normal cognition Gait exam (Neuro): Normal gait present Extrem General: Yes normal to inspection, Yes capillary refill normal, Yes no clubbing, cyanosis or edema and Yes no pedal edema Psych Appearance: grossly normal and well kempt Speech and movement: Normal speech and movement present and Clear speech present Affect: normal affect Attitude: cooperative Thought process: Normal thought process present Thought content: Normal thought content present Insight: Good insight present (Psych) Judgement: Good judgement present (Psych) Assessment & Plan Assessment & Plan (1) Asthma: Code(s): J45.909 - Unspecified asthma, uncomplicated Plan Xochitl reports good control of respiratory symptoms with Breo. Advised to continue use. Reviewed inhaler technique and discussed importance of good oral hygiene. All questions were answered and patient is in agreement of plan. Will follow up in 6 months or sooner if needed. Medications: Refilled fluticasone furoate-vilanterol 100-25 mcg/dose (Breo Ellipta) 1 inh inhalation DAILY 60 ea 6RF Coding Level of Care Code Est Pt Level 3 (91589) Diagnoses Asthma J45.909
[2023-11-03 09:49] VITALS: BP 116/64; PULSE 77; O2SAT 99; BMI 28.2
== END 2023-11-03 10:34 | disposition home or self-care (01) ==
PROVIDERS: PCP Internal Medicine; Visit Provider Nurse Practitioner Family
DX: J45.909 Unspecified asthma, uncomplicated (principal)
CPT/HCPCS: 99213

== ENCOUNTER → 2023-11-03 09:44 | Outpatient (BNVA) | payer OTHER, SELFPAY | PROVIDERS: PCP Internal Medicine; Visit Provider Nurse Practitioner Family ==

== ENCOUNTER 2023-12-22 10:47 | Outpatient (AMB) | payer OTHER, SELFPAY ==
[2023-12-22 10:52] VITALS: BP 128/90; PULSE 70; O2SAT 98; BMI 27.9
--- NOTE | 2023-12-22 10:52 | A.OFFPC_ITS ---
Vital Signs 12/22/23 10:52 Height 5 ft 6 in Weight 78.483 kg BMI 27.9 BP 128/90 H Blood Pressure Location Lt brachial Position Sitting Pulse 70 Pulse Source Pulse Oximeter Pulse Oximetry (%) 98 Oxygen Delivery Method Room Air Intake Visit Reasons: physical Intake Note: Patient is here today for a physical. Natural Gas Trader Required: No Allergies sertraline Adverse Reaction (Intermediate, Verified 12/22/23 10:53) memory issues Medication List - Last Reconciled 12/22/23 by Merlin Wilder MD albuterol sulfate 90 mcg/actuation (Ventolin HFA) 2 puffs inhalation Q4-6H PRN aspirin (Adult Aspirin Regimen) 81 mg PO DAILY fluticasone furoate-vilanterol 100-25 mcg/dose (Breo Ellipta) 1 inh inhalation DAILY Tobacco use date assessed: 12/22/23 Dental Screening Dental Screen Date: 12/22/23 Did you have a dental visit in the last 12 months?: Yes Did you have a dental problem in the last 6 months where you did not have access to dental care?: No Was dental information given to patient?: Patient has dentist HPI physical HPI Details 48 Year old overweight female with gener alized anxiety disorder eczema coming in for physical exam last seen in November 2022. Patient's mammogram is due November colonoscopy up-to-date January 2023. Review of the notes was seen by Pulmonary in October 2023 for asthma diagnosis started on Breo PFT done July 2023. Patient also followed up with Gastroenterology for colonoscopy normal diverticulosis [facility] Medical History Endocervical polyp Factor 5 Leiden mutation, heterozygous History of pulmonary embolism Surgical History Hx of colonoscopy Lumbar disc herniation Family History Father [place] cell carcinoma Stroke Mother Stroke Diabetes Myocardial infarction Brother Leukemia Paternal Aunt Leukemia Esophageal cancer Paternal Uncle Leukemia Social History (Updated 12/22/23 @ 11:56 by Merlin Wilder MD) Household Members Other:: niece Housing: House Are you a primary restorative care technician to a significant other at home: No Do you presently have visiting nurse or other home services: No Alcohol intake: current Alcohol intake frequency: holidays/special occasions only Comment: 1-2 a month 2 drinks Patient Tobacco Use Status: Never used Tobacco e-Cigarette/Vaping Use: Never Used Second Hand Smoke Exposure: No service: No Current occupational status: employed Current occupation: [employer] Cognitive needs: No Hearing needs: No Vision needs: No Questionnaire PHQ-9 Over the last 2 weeks, how often have you been bothered by any of the following problems? 1. Little interest or pleasure in doing things: more than half the days 2. Feeling down, depressed, or hopeless: more than half the days 3. Trouble falling or staying asleep, or sleeping too much: more than half the days 4. Feeling tired or having little energy: not at all 5. Poor appetite or overeating: not at all 6. Feeling bad about yourself - or that you are a failure or have let yourself or your family down: not at all 7. Trouble concentrating on things, such as reading the newspaper or watching television: not at all 8. Moving or speaking so slowly that other people could have noticed. Or the opposite - being so fidgety or restless that you have been moving around a lot more than usual: not at all 9. Thoughts that you would be better off or of hurting yourself in some way: not at all Total score: 6 Depression Screening Interpretation: Negative Depression Screening Done: Yes Source: Developed by Drs. Jimi Schwartz, Rebecca Kingsley, Austin Mata and colleagues, with an educational paige from [employer]. Thrive Questionnaire Date Thrive assessed: 12/22/23 I am a: Patient What is your living situation today?: I have a steady place to live Within the past 12 months, did the food you bought not last and you didn't have the money to get more?: Never true Within the past 12 months, did you worry whether your food would run out before you got money to buy more?: Never true Do you have trouble paying for medicines?: No Do you have trouble getting transportation to medical appointments?: No Do you have trouble paying your heating and electricity bill?: No Do you have trouble taking care of your child, family member or friend?: No Do you have trouble with day-to-day activities such as bathing, preparing meals, shopping, managing finances, etc.?: No Are you currently unemployed and looking for a job?: No Are you interested in more education?: No Please select the resources that you would like help with: None THRIVE Score: 0 AUDIT C Alcohol Use Questionnaire (AUDIT-C) 1. How often do you have a drink containing alcohol?: Monthly or less 2. How many drinks containing alcohol do you have on a typical day when you are drinking?: 1 or 2 3. How often do you have six or more drinks on one occasion?: Never Total Score: 1 Score Reviewed/Action Taken: No GABY-7 AMB Questionnaire GABY-7 Date GABY - 7 assessed: 12/22/23 Feeling nervous, anxious, or on edge: 0 = Not at all Not being able to stop or control worryin = Not at all Worrying too much about different things: 0 = Not at all Trouble relaxin = Not at all Being so restless that it is hard to sit still: 0 = Not at all Becoming easily annoyed or irritable: 0 = Not at all Feeling afraid as if something awful might happen: 0 = Not at all Total GABY-7 score (0-4 normal; 5-9 mild; 10-14 moderate; 15-21 severe): 0 Source: Developed by Drs. Jimi Schwartz, Rebecca Kingsley, Austin Mata and colleagues, with an educational paige from [employer]. Review of Systems Const Denies poor appetite and Denies weakness Eyes Denies no additional complaints ENT Reports Normal hearing present, Denies dizziness, Denies nasal congestion, Denies tinnitus and Denies sore throat Card Denies chest pain, Denies syncope, Denies rapid heart rate and Denies dyspnea Resp Denies cough and Denies dyspnea GI Denies change in stool character, Reports constipation, Denies diarrhea, Denies nausea and Denies vomiting Denies urinary frequency, Denies difficulty voiding and Denies dysuria Neuro Reports Normal hearing present, Denies confusion, Denies dizziness, Denies sync ope and Denies weakness Psych Denies confusion Physical exam (Primary Care) Vital Signs: Last Vital Signs Pulse 70 12/22/23 10:52 BP 128/90 H 12/22/23 10:52 Pulse Ox 98 12/22/23 10:52 Oxygen Delivery Method Room Air 12/22/23 10:52 BMI result Body Mass Index 27.9 Tobacco/Smoking Status: Tobacco use Status Tobacco use date assessed 12/22/23 12/22/23 10:53 Patient Tobacco Use Status Never used Tobacco 12/22/23 11:56 e-Cigarette/Vaping Use Never Used 12/22/23 11:56 PHQ-9: PHQ-9 Score PHQ-9: Total score 6 12/22/23 12:00 Depression Screening Interpretation: Negative Thrive Assessment: Date of Thrive Assessment Date Thrive assessed 12/22/23 12/22/23 10:53 Const General: No confusion Orientation/consciousness: No confusion HENMT Head: Yes normocephalic Ears: external ears normal and TM's normal bilaterally Face and sinus: Yes normal facial exam Mouth: moist mucous membranes Throat: Yes tonsils normal Eyes Conjunctivae: conjunctivae normal Pupils: Equal, round and reactive pupils present and Pupil accommodation reflex normal Direct Ophthalmoscopy: normal light reflex Neck Neck: No lymphadenopathy Thyroid: Thyroid normal Chest Chest palpation & inspection: normal inspection of the chest Resp Effort & Inspection: normal respiratory effort and no audible wheezes Auscultation: clear to auscultation bilaterally, no crackles, no wheezes and lung sounds not diminished Cardio Rate: regular rate Rhythm: regular rhythm Peripheral pulses: radial pulses present and dorsalis pedis present GI Palpation (GI): no masses Auscultation: normal bowel sounds and normoactive bowel sounds Rectal Exam - Female: deferred Skin General skin exam: no rashes or lesions noted Rashes: no rashes Neuro General: No confusion Cranial nerves: Yes Equal, round and reactive pupils present and Yes Normal hearing present Cognition (Neuro): normal cognition Gait exam (Neuro): Normal gait present Motor exam (neuro): 5/5 motor strength present throughout Deep tendon reflexes (DTR's): Right brachioradialis reflex intensity grade: 2+, Left brachioradialis reflex intensity grade: 2+, Right patellar reflex intensity grade: 2+ and Left patellar reflex intensity grade: 2+ Extrem General: No edema Office Procedures Flu Questionnaire Does the patient have a severe egg allergy?: No Does the patient have severe life threatening allergies?: No Does the patient have a fever or illness today?: No Has the patient ever had Guillain-Mescalero Syndrome?: No Has the patient ever had any past reaction to a flu shot?: No Immunizations flu vacc [id number] 6mos up(PF) 60 mcg(15 mcgx4)/0.5 mL IM syringe Performing Provider: Merlin Wilder MD [facility] Administered by: Tea Alvarado CMA on 12/22/23 12:23 Dose Route Admin Location Dispensed Lot Number Expiration Date NDC Dioramist 0.5 mL IM Left Deltoid 0.5 mL [id number] 05/15/24 [id number] [employer]Art VIS Given Date VIS Provided VIS Publication Date 12/22/23 Single Vaccine 21 Eligibility Eligibility Date Funding Source Not [facility] Eligible 12/22/23 Private Assessment and Plan Assessment & Plan (1) Annual physical exam: Code(s): Z00.00 - Encounter for general adult medical examination without abnormal findings (2) Overweight (BMI 25.0-29.9): Code(s): E66.3 - Overweight Plan: Noted weight loss, continue with diet and exercise (3) Asthma: Code(s): J45.909 - Unspecified asthma, uncomplicated Plan: Patient has seen Pulmonary and has been prescribed Breo for controller (4) Diverticulosis of colon: Code(s): K57.30 - Diverticulosis of large intestine without perforation or abscess without bleeding Plan: Three rules for constipation 1. Diet need to have a high fiber diet less of meat 2. Increase oral fluids 3. Exercise (5) Blood pressure elevated without history of HTN: Code(s): R03.0 - Elevated blood-pressure reading, without diagnosis of hypertension Plan: advise to monitor the BP Orders: Orders Free T4 (Free Thyroxine) Today R03.0 - Elevated blood-pressure reading, without diagnosis of hypertension Vitamin D 25-OH Total Today R03.0 - Elevated blood-pressure reading, without diagnosis of hypertension Complete Blood Count Auto Diff Today R03.0 - Elevated blood-pressure reading, without diagnosis of hypertension Comprehensive Met. Panel Today R03.0 - Elevated blood-pressure reading, without diagnosis of hypertension Thyroid Stimulating Hormone Today R03.0 - Elevated blood-pressure reading, without diagnosis of hypertension Vitamin B12 and Folate Today R03.0 - Elevated blood-pressure reading, without diagnosis of hypertension Lipid Panel Today E78.00 - Pure hypercholesterolemia, unspecified, R03.0 - Elevated blood-pressure reading, without diagnosis of hypertension Influenza [id number] Immunization Today Z23 - Encounter for immunization Coding Level of Care Code Est Pt Prev Care 40-64y(44812) Diagnoses Annual physical exam Z00.00 Overweight (BMI 25.0-29.9) E66.3 Asthma J45.909 Diverticulosis of colon K57.30 Blood pressure elevated without history of HTN R03.0
== END 2023-12-22 12:29 | disposition home or self-care (01) ==
PROVIDERS: Visit Provider Internal Medicine
DX: Z23 Encounter for immunization (principal); Z00.00 Encounter for general adult medical examination without abnormal findings; J45.909 Unspecified asthma, uncomplicated; K57.30 Diverticulosis of large intestine without perforation or abscess without bleeding; R03.0 Elevated blood-pressure reading, without diagnosis of hypertension
CPT/HCPCS: 90471; 90686; 99396

== ENCOUNTER 2024-01-05 10:43 | Outpatient (REF) | payer OTHER, SELFPAY ==
[2024-01-05 11:00] LABS: MANUAL DIFF FLAG NO
[2024-01-05 11:45] LABS: Basophils Absolute Auto 0.1 X10*3/uL (0.0-0.2); Basophils Percent Auto 0.5 % (0-2); Eosinophils Absolute Auto 0.4 X10*3/uL (0.0-0.4); Eosinophils Percent Auto 3.9 % (0-4); Hematocrit 45.9 % (37.0-47.0); Hemoglobin 14.8 g/dl (12.0-16.0); Imm Gran Abs Auto 0.08 X10*3/uL (0.00-0.03); Imm Gran Pct Auto 0.8 % (0.0-0.4); Lymphocytes Absolute Auto 3.1 X10*3/uL (1.2-4.9); Lymphocytes Percent Auto 31.1 % (20-40); Mean Corpuscular HGB Conc 32.2 g/dl (31.0-35.0); Mean Corpuscular Hemoglobin 28.1 pg (27.0-33.0); Mean Corpuscular Volume 87.1 fL (80.0-98.0); Mean Platelet Volume 10.3 fL (9.4-12.3); Monocytes Absolute Auto 0.6 X10*3/uL (0.1-1.2); Monocytes Percent Auto 5.5 % (2-11); Neutrophils Absolute Auto 5.8 x10*3/uL (2.0-8.3); Neutrophils Percent Auto 58.2 % (45-73); Platelet Count 233 X10*3/uL (160-400); Red Blood Count 5.27 X10*6/uL (4.20-5.50)
[2024-01-05 12:13] LABS: Alanine Aminotransferase 20 U/L (0-31); Albumin Level 4.3 g/dL (3.5-5.0); Alkaline Phosphatase 57 U/L (39-117); Anion Gap 13 (12-20); Aspartate Amino Transferase 15 U/L (5-31); Bilirubin Total 0.4 mg/dL (0.0-1.0); Blood Urea Nitrogen 13 mg/dL (9-16); Calcium 9.4 mg/dL (8.4-10.2); Carbon Dioxide 26 mmol/L (22-29); Chloride 105 mmol/L (96-108); Cholesterol 152 mg/dL (<200); Estimated Glomerular Filt Rate > 60; Glucose Random 102 mg/dL (60-115); HDL Cholesterol 39 mg/dL (>40); LDL Cholesterol Calculated 97 mg/dL (<100); Potassium 5.3 mmol/L (3.3-5.1); Sodium 139 mmol/L (135-145); Triglycerides 83 mg/dL (<150)
[2024-01-05 12:37] LABS: Free T4 (Free Thyroxine) 0.84 ng/dL (0.71-1.85); Thyroid Stimulating Hormone 2.79 uIU/mL (0.32-4.0); Vitamin D 25-OH Total 32.5 ng/mL (>30)
[2024-01-05 12:41] LABS: Folate 10.5 ng/mL (> or = 4.0); Vitamin B12 419 pg/mL (200-900)
== END 2024-01-05 10:44 | disposition home or self-care (01) ==
LOC: HO.LAB 10:43
PROVIDERS: PCP Internal Medicine; Visit Provider Internal Medicine
DX: R03.0 Elevated blood-pressure reading, without diagnosis of hypertension (principal); E78.00 Pure hypercholesterolemia, unspecified
CPT/HCPCS: 36415; 80053; 80061; 82306; 82607; 82746; 84439; 84443; 85025

== ENCOUNTER 2024-03-31 10:50 | Outpatient (AMB) | payer OTHER, SELFPAY ==
[2024-03-31 10:58] VITALS: BP 130/80; PULSE 82; O2SAT 98; BMI 28.7
--- NOTE | 2024-03-31 10:58 | A.OFFPC_ITS ---
Vital Signs 03/31/24 10:58 Height 5 ft 6 in Weight 178 lb BMI 28.7 BP 130/80 Blood Pressure Location Lt brachial Position Sitting Pulse 82 Pulse Source Pulse Oximeter Pulse Oximetry (%) 98 Oxygen Delivery Method Room Air Intake Visit Reasons: 3 month f/u Allergies sertraline Adverse Reaction (Intermediate, Verified 03/31/24 10:59) memory issues Tobacco use date assessed: 12/22/23 Dental Screening Dental Screen Date: 03/31/24 Did you have a dental visit in the last 12 months?: Yes Did you have a dental problem in the last 6 months where you did not have access to dental care?: No Was dental information given to patient?: Patient has dentist HPI 3 month f/u HPI Details 48-year-old overweight female with asthm a history of diverticular disease and concern about last time seen in December having an elevated blood pressure patient is here for follow-up. Blood pressure today is normal [facility] Medical History (Updated 03/31/24 @ 11:51 by Merlin Wilder MD) Colon cancer screening Endocervical polyp History of pulmonary embolism Factor 5 Leiden mutation, heterozygous Surgical History Hx of colonoscopy Lumbar disc herniation Family History Father [place] cell carcinoma Stroke Mother Stroke Diabetes Myocardial infarction Brother Leukemia Paternal Aunt Leukemia Esophageal cancer Paternal Uncle Leukemia Social History (Updated 12/22/23 @ 11:56 by Merlin Wilder MD) Household Members Other:: niece Housing: House Are you a primary plant health care technician to a significant other at home: No Do you presently have visiting nurse or other home services: No Alcohol intake: current Alcohol intake frequency: holidays/special occasions only Comment: 1-2 a month 2 drinks Patient Tobacco Use Status: Never used Tobacco e-Cigarette/Vaping Use: Never Used Second Hand Smoke Exposure: No service: No Current occupational status: employed 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 1. Little interest or pleasure in doing things: more than half the days 2. Feeling down, depressed, or hopeless: more than half the days 3. Trouble falling or staying asleep, or sleeping too much: more than half the days 4. Feeling tired or having little energy: not at all 5. Poor appetite or overeating: not at all 6. Feeling bad about yourself - or that you are a failure or have let yourself or your family down: not at all 7. Trouble concentrating on things, such as reading the newspaper or watching television: not at all 8. Moving or speaking so slowly that other people could have noticed. Or the opposite - being so fidgety or restless that you have been moving around a lot more than usual: not at all 9. Thoughts that you would be better off or of hurting yourself in some way: not at all Total score: 6 Depression Screening Interpretation: Negative Depression Screening Done: Yes Source: Developed by Drs. Jimi Schwartz, Rebecca Kingsley, Austin Mata and colleagues, with an educational paige from [employer]. Thrive Questionnaire Date Thrive assessed: 12/22/23 AUDIT C Alcohol Use Questionnaire (AUDIT-C) 1. How often do you have a drink containing alcohol?: Monthly or less 2. How many drinks containing alcohol do you have on a typical day when you are drinking?: 1 or 2 3. How often do you have six or more drinks on one occasion?: Never Total Score: 1 Score Reviewed/Action Taken: No GABY-7 AMB Questionnaire GABY-7 Date GABY - 7 assessed: 12/22/23 Source: Developed by Drs. Jimi Schwartz, Rebecca Kingsley, Austin Mata and colleagues, with an educational paige from [employer]. Physical exam (Primary Care) Vital Signs: Last Vital Signs Pulse 82 03/31/24 10:58 BP 130/80 03/31/24 10:58 Pulse Ox 98 03/31/24 10:58 Oxygen Delivery Method Room Air 03/31/24 10:58 BMI result Body Mass Index 28.7 Tobacco/Smoking Status: Tobacco use Status Tobacco use date assessed 12/22/23 03/31/24 10:59 Patient Tobacco Use Status Never used Tobacco 03/31/24 10:59 e-Cigarette/Vaping Use Never Used 03/31/24 10:59 PHQ-9: PHQ-9 Score PHQ-9: Total score 6 03/31/24 11:21 Depression Screening Interpretation: Negative Thrive Assessment: Date of Thrive Assessment Date Thrive assessed 12/22/23 03/31/24 10:59 Const General: alert; No acute distress Eyes Conjunctivae: conjunctivae normal Resp Auscultation: clear to auscultation bilaterally Cardio Rate: regular rate Rhythm: regular rhythm GI Inspection: Yes normal to inspection Extrem General: Yes normal to inspection and No edema Assessment and Plan Assessment & Plan (1) Blood pressure elevated without history of HTN: Code(s): R03.0 - Elevated blood-pressure reading, without diagnosis of hypertension Plan: Patient's blood pressure today is normal (2) Overweight (BMI 25.0-29.9): Code(s): E66.3 - Overweight Plan: Diet and exercise (3) Generalized anxiety disorder: Code(s): F41.1 - Generalized anxiety disorder Plan: Presently stable no medication (4) Factor 5 Leiden mutation, heterozygous: Comment: December 2009 Code(s): D68.51 - Activated protein C resistance Plan: Presently on aspirin (5) Asthma: Code(s): J45.909 - Unspecified asthma, uncomplicated Plan: Presently on Breo and albuterol as needed. (6) Impaired fasting blood sugar: Code(s): R73.01 - Impaired fasting glucose Orders: Orders Vitamin B12 and Folate 6 Months R73.01 - Impaired fasting glucose Lipid Panel 6 Months E78.00 - Pure hypercholesterolemia, unspecified, R73.01 - Impaired fasting glucose Hemoglobin A1c 6 Months R73.01 - Impaired fasting glucose Comprehensive Met. Panel 6 Months R73.01 - Impaired fasting glucose Complete Blood Count Auto Diff 6 Months R73.01 - Impaired fasting glucose Thyroid Stimulating Hormone 6 Months R73.01 - Impaired fasting glucose Free T4 (Free Thyroxine) 6 Months R73.01 - Impaired fasting glucose Vitamin D 25-OH Total 6 Months R73.01 - Impaired fasting glucose Medications: Refilled albuterol sulfate 90 mcg/actuation (Ventolin HFA) 2 puffs inhalation Q4-6H PRN 2 ea 1RF shortness of breath or wheezing J40 - Bronchitis, not specified as acute or chronic Coding Level of Care Code Est Pt Level 4 (62908) Diagnoses Blood pressure elevated without history of HTN R03.0 Overweight (BMI 25.0-29.9) E66.3 Generalized anxiety disorder F41.1 Factor 5 Leiden mutation, heterozygous D68.51 Asthma J45.909 Impaired fasting blood sugar R73.01
== END 2024-03-31 14:08 | disposition home or self-care (01) ==
PROVIDERS: PCP Internal Medicine; Visit Provider Internal Medicine
DX: R03.0 Elevated blood-pressure reading, without diagnosis of hypertension (principal); E66.3 Overweight; F41.1 Generalized anxiety disorder; D68.51 Activated protein C resistance; J45.909 Unspecified asthma, uncomplicated; R73.01 Impaired fasting glucose
CPT/HCPCS: 99214

== ENCOUNTER 2024-04-20 09:37 | Outpatient (AMB) | payer OTHER, SELFPAY ==
--- NOTE | 2024-04-20 09:39 | MHC.OFFVIS ---
Vital Signs 04/20/24 09:40 Height 5 ft 6 in Weight 173 lb 8 oz BMI 28.0 BP 118/74 Blood Pressure Location Rt brachial Position Sitting Pulse 87 Pulse Source Pulse Oximeter Pulse Oximetry (%) 97 Oxygen Delivery Method Room Air Intake Visit Reasons: copd: 6 month f/u Allergies sertraline Adverse Reaction (Intermediate, Verified 04/20/24 09:45) memory issues HPI HPI copd: 6 month f/u: Details: Xochitl is a pleasant 48 year old, never smoker, with underlying asthma. At baseline, has been well controlled on Breo. She reports minimal use of albuterol. She denies cough, dyspnea, wheezing and chest tightness. She denies any recent visit to urgent care or hospitalizations since last visit. Today she presents for routine follow up. [facility] Medical History (Updated 03/31/24 @ 11:51 by Merlin Wilder MD) Colon cancer screening Endocervical polyp History of pulmonary embolism Factor 5 Leiden mutation, heterozygous Surgical History Hx of colonoscopy Lumbar disc herniation Family History Father [place] cell carcinoma Stroke Mother Stroke Diabetes Myocardial infarction Brother Leukemia Paternal Aunt Leukemia Esophageal cancer Paternal Uncle Leukemia Social History Household Members Other:: niece Housing: House Are you a primary clinical care coordinator to a significant other at home: No Do you presently have visiting nurse or other home services: No Alcohol intake: current Alcohol intake frequency: holidays/special occasions only Comment: 1-2 a month 2 drinks Patient Tobacco Use Status: Never used Tobacco e-Cigarette/Vaping Use: Never Used Second Hand Smoke Exposure: No service: No Current occupational status: employed 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 Cognitive needs: No Hearing needs: No Vision needs: No Review of Systems Const Denies chills, Denies excessive sweating, Denies fever(s), Denies headache(s) and Denies night sweats Eyes Denies dry eyes, Denies irritation and Denies itchy eyes ENT Reports Normal hearing present and Denies headache(s) Card Denies chest pain, Denies chest pain at rest, Denies chest pain with activity, Denies claudication, Denies leg edema, Denies orthopnea and Denies paroxysmal nocturnal dyspnea Resp Denies chest congestion, Denies excessive phlegm production, Denies pain on inspiration, Denies pain with cough and Denies stridor Musc Denies myalgias Neuro Reports Normal hearing present and Denies headache(s) Endo Denies excessive sweating Te/Lymph Denies lymphadenopathy Aller/Immun Denies itchy eyes and Denies seasonal rhinorrhea Physical Exam Vital Signs: Last Vital Signs Pulse 87 04/20/24 09:40 BP 118/74 04/20/24 09:40 Pulse Ox 97 04/20/24 09:40 Oxygen Delivery Method Room Air 04/20/24 09:40 BMI result Body Mass Index 28.0 Const General: cooperative, healthy appearing, comfortable, no acute distress, well developed and alert Orientation/consciousness: patient oriented x3 Limitations: no limitations HEENT Head: Yes normal to inspection, Yes normocephalic and Yes atraumatic Ears: hearing grossly normal bilaterally and external ears normal Eyes General: appearance normal, both eyes and all related structures Eyelids: Yes eyelids normal Sclerae: sclerae normal EOM: EOMs intact bilaterally Neck Neck: Yes normal visual inspection and Yes no lymphadenopathy Lymphatic: no lymphadenopathy noted Chest Chest palpation & inspection: normal inspection of the chest Resp Effort & Inspection: normal respiratory effort, able to speak in complete sentences, no audible wheezes, no cough, no stridor, not tachypneic, no tripod positioning and no use of accessory muscles Auscultation: clear to auscultation bilaterally Cardio Jugular venous distension: no JVD Rate: regular rate Rhythm: regular rhythm Skin Other: warm, dry General skin exam: no rashes or lesions noted Neuro General: patient oriented x3 Cranial nerves: Yes Normal hearing present Cognition (Neuro): normal cognition Gait exam (Neuro): Normal gait present Extrem General: Yes normal to inspection, Yes capillary refill normal, Yes no clubbing, cyanosis or edema and Yes no pedal edema Psych Appearance: grossly normal and well kempt Speech and movement: Normal speech and movement present and Clear speech present Affect: normal affect Attitude: cooperative Thought process: Normal thought process present Thought content: Normal thought content present Insight: Good insight present (Psych) Judgement: Good judgement present (Psych) Assessment & Plan Assessment & Plan (1) Asthma: Code(s): J45.909 - Unspecified asthma, uncomplicated Category: Medical Plan Patient with good control of respiratory symptoms with Breo. Advised to continue use and if she develops any worsening of respiratory symptoms to call the office. All questions were answered and patient is in agreement of plan. Will follow up in 6 months or sooner if needed. Medications: Refilled fluticasone furoate-vilanterol 100-25 mcg/dose (Breo Ellipta) 1 inh inhalation DAILY 60 ea 6RF Coding Level of Care Code Est Pt Level 3 (75981) Diagnoses Asthma J45.909
[2024-04-20 09:40] VITALS: BP 118/74; PULSE 87; O2SAT 97; BMI 28.0
== END 2024-04-20 10:03 | disposition home or self-care (01) ==
PROVIDERS: PCP Internal Medicine; Visit Provider Nurse Practitioner Family
DX: J45.909 Unspecified asthma, uncomplicated (principal)
CPT/HCPCS: 99213

== ENCOUNTER → 2024-04-20 09:37 | Outpatient (BNVA) | payer OTHER, SELFPAY | PROVIDERS: PCP Internal Medicine; Visit Provider Nurse Practitioner Family ==

== ENCOUNTER 2024-06-22 14:34 | Outpatient (AMB) | payer OTHER, SELFPAY ==
[2024-06-22 14:36] VITALS: BP 104/78; PULSE 86; O2SAT 97; BMI 28.6
--- NOTE | 2024-06-22 14:36 | MHC.PC.OV ---
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 Wilder, March 2024 coming in for acute problem.? In review of the notes, patient was seen by pulmonology 04/20/2024 for asthma considered stable and follow up in 6 months.? Mammogram completed 04/08/2024 BI-RADS 1 follow up in 1 year.? Patient was seen in [facility] ED for palpitations EKG was normal per patient report and she was discharged home. Today she tells us that she has not had additional episodes of palpitations. The episode of palpitation she did have was in the middle of the night and felt as if her heart was pounding out of her chest and could also feel the heartbeat in her head and ear. She denies any history of palpitations or chest pain. She mentions because of her family history of heart disease she is very anxious about her own health. Denies any chest pain or palpitations with regular exercise. [facility] Medical History Colon cancer screening Endocervical polyp History of pulmonary embolism Factor 5 Leiden mutation, heterozygous Surgical History Hx of colonoscopy Lumbar disc herniation Family History Father [place] cell carcinoma Stroke Mother Stroke Diabetes Myocardial infarction Brother Leukemia Paternal Aunt Leukemia Esophageal cancer Paternal Uncle Leukemia Social History Household Members Other:: niece Housing: House Are you a primary foster care case manager to a significant other at home: No Do you presently have visiting nurse or other home services: No Alcohol intake: current Alcohol intake frequency: holidays/special occasions only Comment: 1-2 a month 2 drinks Patient Tobacco Use Status: Never used Tobacco e-Cigarette/Vaping Use: Never Used Second Hand Smoke Exposure: No service: No Current occupational status: employed 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 How often do you have a drink containing alcohol?: Monthly or less 2. How many drinks containing alcohol do you have on a typical day when you are drinking?: 1 or 2 3. How often do you have six or more drinks on one occasion?: Never Total Score: 1 Score Reviewed/Action Taken: No GABY-7 AMB Questionnaire GABY-7 Date GABY - 7 assessed: 12/22/23 Source: Developed by Drs. Jimi Schwartz, Rebecca Kingsley, Austin Mata and colleagues, with an educational paige from [employer]. Review of Systems Const Denies body aches, Denies chills, Denies fever(s), Denies headache(s) and Denies poor appetite Eyes Reports no additional complaints ENT Denies dizziness and Denies headache(s) Card Denies chest pain, Denies syncope, Denies edema, Denies irregular heart rhythm, Denies lightheadedness and Denies dyspnea Resp Denies dyspnea GI Denies abdominal pain Reports no additional complaints Musc Reports no additional complaints and Denies abnormal gait Skin/Breast Reports system reviewed and no additional complaints, except as documented Neuro Denies abnormal gait, Denies dizziness, Denies syncope and Denies headache(s) Psych Reports no additional complaints Physical exam (Primary Care) Vital Signs: Last Vital Signs Pulse 86 06/22/24 14:36 BP 104/78 06/22/24 14:36 Pulse Ox 97 06/22/24 14:36 Oxygen Delivery Method Room Air 06/22/24 14:36 BMI result Body Mass Index 28.6 Tobacco/Smoking Status: Tobacco use Status Tobacco use date assessed 12/22/23 06/22/24 14:37 Patient Tobacco Use Status Never used Tobacco 06/22/24 14:37 e-Cigarette/Vaping Use Never Used 06/22/24 14:37 Thrive Assessment: Date of Thrive Assessment Date Thrive assessed 12/22/23 06/22/24 14:37 Const General: cooperative, healthy appearing, comfortable and no acute distress Orientation/consciousness: patient oriented x3 HENMT Head: Yes normocephalic Ears: hearing grossly normal bilaterally General nose exam: Normal external nose present Eyes General: appearance normal, both eyes and all related structures Conjunctivae: conjunctivae normal Neck Neck: Yes full ROM and Yes no lymphadenopathy Resp Effort & Inspection: normal respiratory effort Auscultation: clear to auscultation bilaterally, no crackles, no rales, no rhonchi and no wheezes Cardio Rate: regular rate Rhythm: regular rhythm Skin General skin exam: no rashes or lesions noted Neuro General: patient oriented x3 Gait exam (Neuro): Normal gait present Extrem General: Yes normal to inspection, Yes full ROM and No edema Psych Affect: normal affect Attitude: cooperative Insight: Good insight present (Psych) Judgement: Good judgement present (Psych) Assessment and Plan Assessment & Plan (1) Palpitations: Code(s): R00.2 - Palpitations Plan: Patient initially presented to emergency department after having had 1 episode of palpitations. She denies any history of palpitations and no episodes since that time. She denies any other cardiac symptoms. At this time and is not appropriate to order a Holter monitor as this was an isolated episode without recurrence. We will continue to follow and if she begins to have additional episodes we can work this up further. Still awaiting ED notes should the notes sales and service change leader addendum will be made. (2) Overweight (BMI 25.0-29.9): Code(s): E66.3 - Overweight Plan: Discussed at length the importance of regular exercise and healthy eating habits. Patient states it is tough for her to exercise because she gets worried about her shortness of breath. Discussed that shortness of breath can be normal with exercise especially with cardio and that she should just use caution and monitor her symptoms while exercising. Plan This note was constructed using voice recognition software. While every effort has been made to ensure accuracy and consumer advocate, still areas may have been included sometimes these areas may affect the content or meeting of the given symptoms. Total time spent caring for the patient today was 25 minutes. This includes time spent before the visit reviewing the chart, time spent during the visit, and time spent after the visit and documentation. Coding Level of Care Code Est Pt Level 4 (34332) Diagnoses Palpitations R00.2 Overweight (BMI 25.0-29.9) E66.3
== END 2024-06-22 15:18 | disposition home or self-care (01) ==
PROVIDERS: PCP Internal Medicine
DX: R00.2 Palpitations (principal); E66.3 Overweight
CPT/HCPCS: 99214

== ENCOUNTER 2024-06-30 07:59 | Outpatient (AMB) | payer OTHER, SELFPAY ==
[2024-06-30 08:01] VITALS: BP 92/70; PULSE 109; O2SAT 98; BMI 27.6
--- NOTE | 2024-06-30 08:01 | A.OFFPC_ITS ---
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 Allergies sertraline Adverse Reaction (Intermediate, Verified 06/30/24 08:02) memory issues Medication List - Last Reconciled 06/30/24 by Carey Villarreal PA-C albuterol sulfate 90 mcg/actuation (Ventolin HFA) 2 puffs inhalation Q4-6H PRN amoxicillin-pot clavulanate 875-125 mg 1 tab PO BID aspirin (Adult Aspirin Regimen) 81 mg PO DAILY fluticasone furoate-vilanterol 100-25 mcg/dose (Breo Ellipta) 1 inh inhalation DAILY Tobacco use date assessed: 12/22/23 Dental Screening Dental Screen Date: 03/31/24 HPI follow up back pain-see comm HPI Details 48-year-old female with past medical his tory of asthma and diverticular disease last seen June 2024 coming in for acute problem. Patient states she was seen at urgent care on Thursday for acute back pain and was given a shot of ketorolac and muscle relaxers. Thursday she was seen in the [facility] ER for bloody diarrhea imaging was consistent with colitis patient was treated with Augmentin for 10 days and discharged home with instructions to follow a bland diet. CT imaging also showed a nodule in the right breast as well as a lesion on her ovary and recommend follow up with Gynecology. [facility], [facility] Medical History Colon cancer screening Endocervical polyp History of pulmonary embolism Factor 5 Leiden mutation, heterozygous Surgical History Hx of colonoscopy Lumbar disc herniation Family History Father [place] cell carcinoma Stroke Mother Stroke Diabetes Myocardial infarction Brother Leukemia Paternal Aunt Leukemia Esophageal cancer Paternal Uncle Leukemia Social History Household Members Other:: niece Housing: House Are you a primary resident care aid to a significant other at home: No Do you presently have visiting nurse or other home services: No Alcohol intake: current Alcohol intake frequency: holidays/special occasions only Comment: 1-2 a month 2 drinks Patient Tobacco Use Status: Never used Tobacco e-Cigarette/Vaping Use: Never Used Second Hand Smoke Exposure: No service: No Current occupational status: employed 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 How often do you have a drink containing alcohol?: Monthly or less 2. How many drinks containing alcohol do you have on a typical day when you are drinking?: 1 or 2 3. How often do you have six or more drinks on one occasion?: Never Total Score: 1 Score Reviewed/Action Taken: No GABY-7 AMB Questionnaire GABY-7 Date GABY - 7 assessed: 12/22/23 Source: Developed by Drs. Jimi Schwartz, Rebecca Kingsley, Austin Mata and colleagues, with an educational paige from [employer]. Review of Systems Const Denies body aches, Denies chills, Denies fever(s), Denies headache(s) and Reports poor appetite Eyes Reports no additional complaints ENT Denies dizziness and Denies headache(s) Card Denies chest pain, Denies syncope, Denies lightheadedness and Denies dyspnea Resp Denies dyspnea GI Reports abdominal pain (Left lower quadrant), Denies constipation, Reports diarrhea, Denies nausea and Denies vomiting Reports no additional complaints Musc Reports no additional complaints, Denies abnormal gait and Reports back pain (Improved since Thursday) Skin/Breast Reports system reviewed and no additional complaints, except as documented Neuro Denies abnormal gait, Denies dizziness, Denies syncope and Denies headache(s) Psych Reports no additional complaints Physical exam (Primary Care) Vital Signs: Last Vital Signs Pulse 109 H 06/30/24 08:01 BP 92/70 06/30/24 08:01 Pulse Ox 98 06/30/24 08:01 Oxygen Delivery Method Room Air 06/30/24 08:01 BMI result Body Mass Index 27.6 Tobacco/Smoking Status: Tobacco use Status Tobacco use date assessed 12/22/23 06/30/24 08:02 Patient Tobacco Use Status Never used Tobacco 06/30/24 08:02 e-Cigarette/Vaping Use Never Used 06/30/24 08:02 Thrive Assessment: Date of Thrive Assessment Date Thrive assessed 12/22/23 06/30/24 08:02 Const General: cooperative, healthy appearing, comfortable and no acute distress Orientation/consciousness: patient oriented x3 HENMT Head: Yes normocephalic Ears: hearing grossly normal bilaterally General nose exam: Normal external nose present Eyes General: appearance normal, both eyes and all related structures Conjunctivae: conjunctivae normal Neck Neck: Yes full ROM and Yes no lymphadenopathy Resp Effort & Inspection: normal respiratory effort Auscultation: clear to auscultation bilaterally, no crackles, no rales, no rhonchi and no wheezes Cardio Rate: regular rate Rhythm: regular rhythm GI Inspection: Yes normal to inspection Palpation (GI): Soft to palpation, not firm, Tenderness to palpation present (GI) in the LLQ and suprapubicly, no guarding and not rigid General: Yes no CVA tenderness Back/Spine/Pelvis Other: Left-sided paraspinal tenderness to palpation. No tenderness along the spine Back: no CVA tenderness Skin General skin exam: no rashes or lesions noted Neuro General: patient oriented x3 Gait exam (Neuro): Normal gait present Extrem General: Yes normal to inspection, Yes full ROM and No edema Psych Affect: normal affect Attitude: cooperative Insight: Good insight present (Psych) Judgement: Good judgement present (Psych) Assessment and Plan Assessment & Plan (1) Colitis: Code(s): K52.9 - Noninfective gastroenteritis and colitis, unspecified Plan: CT imaging in [facility] ED was consistent with colitis. Patient discharged home with Augmentin for 10 days however was only given a 5 day supply additional 5 days sent to pharmacy today. Patient has been following a bland diet. Advised patient to increase fluid intake. Reviewed with patient when to return to ER and red flag symptoms. Follow up with GI. (2) Low back pain: Code(s): M54.50 - Low back pain, unspecified Plan: She continues to have low back pain but it has improved since Thursday. Prescribed topical lidocaine patches to be worn at work. Also reviewed [id number] remedies that may help. Advised patient to avoid NSAIDs while she is having rectal bleeding however she may take Tylenol as needed for pain. (3) Breast nodule: Code(s): N63.0 - Unspecified lump in unspecified breast Plan: Seen incidentally on CT imaging. She is currently following up with gynecology for this and they are managing her mammograms. There also managing the ovarian lesion seen on CT. Plan This note was constructed using voice recognition software. While every effort has been made to ensure accuracy and automobile leasing supervisor, still areas may have been included sometimes these areas may affect the content or meeting of the given symptoms. Total time spent caring for the patient today was 30 minutes. This includes time spent before the visit reviewing the chart, time spent during the visit, and time spent after the visit and documentation. Medications: New amoxicillin-pot clavulanate 875-125 mg 1 tab PO BID 5 days 10 tabs 0RF lidocaine 5% leave on most painful area for up to 12 hrs 1 patch topical DAILY 30 ea 0RF Coding Level of Care Code Est Pt Level 4 (80868) Diagnoses Colitis K52.9 Low back pain M54.50 Breast nodule N63.0
== END 2024-06-30 08:40 | disposition home or self-care (01) ==
PROVIDERS: PCP Internal Medicine
DX: K52.9 Noninfective gastroenteritis and colitis, unspecified (principal); M54.50 Low back pain, unspecified; N63.13 Unspecified lump in the right breast, lower outer quadrant
CPT/HCPCS: 99214

== ENCOUNTER 2024-07-07 13:38 | Outpatient (AMB) | payer OTHER, SELFPAY ==
[2024-07-07 13:39] VITALS: BP 110/68; PULSE 94; O2SAT 95; BMI 27.9
--- NOTE | 2024-07-07 13:39 | A.OFFPC_ITS ---
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 Last seen in June 30. Patient's colonoscopy is up-to-date. Review of the notes ER visit in 06/28/2024 for rectal bleeding with abdominal pain. CT scan done showing colitis incidentally small right breast nodule noted as well as a left adnexal lesion. [facility] Medical History Colon cancer screening Endocervical polyp History of pulmonary embolism Factor 5 Leiden mutation, heterozygous Surgical History Hx of colonoscopy Lumbar disc herniation Family History Father [place] cell carcinoma Stroke Mother Stroke Diabetes Myocardial infarction Brother Leukemia Paternal Aunt Leukemia Esophageal cancer Paternal Uncle Leukemia Social History Household Members Other:: niece Housing: House Are you a primary career law clerk to a significant other at home: No Do you presently have visiting nurse or other home services: No Alcohol intake: current Alcohol intake frequency: holidays/special occasions only Comment: 1-2 a month 2 drinks Patient Tobacco Use Status: Never used Tobacco e-Cigarette/Vaping Use: Never Used Second Hand Smoke Exposure: No service: No Current occupational status: employed 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 1. Little interest or pleasure in doing things: more than half the days 2. Feeling down, depressed, or hopeless: more than half the days 3. Trouble falling or staying asleep, or sleeping too much: more than half the days 4. Feeling tired or having little energy: not at all 5. Poor appetite or overeating: not at all 6. Feeling bad about yourself - or that you are a failure or have let yourself or your family down: not at all 7. Trouble concentrating on things, such as reading the newspaper or watching television: not at all 8. Moving or speaking so slowly that other people could have noticed. Or the opposite - being so fidgety or restless that you have been moving around a lot more than usual: not at all 9. Thoughts that you would be better off or of hurting yourself in some way: not at all Total score: 6 Depression Screening Interpretation: Negative Depression Screening Done: Yes Source: Developed by Drs. Jimi Schwartz, Austin Peter and colleagues, with an educational paige from [email or web address]. Thrive Questionnaire Date Thrive assessed: 12/22/23 AUDIT C Alcohol Use Questionnaire (AUDIT-C) 1. How often do you have a drink containing alcohol?: Monthly or less 2. How many drinks containing alcohol do you have on a typical day when you are drinking?: 1 or 2 3. How often do you have six or more drinks on one occasion?: Never Total Score: 1 Score Reviewed/Action Taken: No GABY-7 AMB Questionnaire GABY-7 Date GABY - 7 assessed: 12/22/23 Source: Developed by Drs. Jimi Schwartz, Austin Peter and colleagues, with an educational paige from [email or web address]. Physical exam (Primary Care) Vital Signs: Last Vital Signs Pulse 94 07/07/24 13:39 BP 110/68 07/07/24 13:39 Pulse Ox 95 07/07/24 13:39 Oxygen Delivery Method Room Air 07/07/24 13:39 BMI result Body Mass Index 27.9 Tobacco/Smoking Status: Tobacco use Status Tobacco use date assessed 12/22/23 07/07/24 13:44 Patient Tobacco Use Status Never used Tobacco 07/07/24 13:44 e-Cigarette/Vaping Use Never Used 07/07/24 13:44 PHQ-9: PHQ-9 Score PHQ-9: Total score 6 07/07/24 13:46 Depression Screening Interpretation: Negative Thrive Assessment: Date of Thrive Assessment Date Thrive assessed 12/22/23 07/07/24 13:44 Const General: alert; No acute distress Eyes Conjunctivae: conjunctivae normal Chest Chest/axillae images: 2 1. R breast mass 8 oclock area Resp Auscultation: clear to auscultation bilaterally Cardio Rate: regular rate Rhythm: regular rhythm GI Inspection: Yes normal to inspection Extrem General: Yes normal to inspection and No edema Assessment and Plan Assessment & Plan (1) Breast nodule: Comment: Right, incidental finding June 2024 Code(s): N63.0 - Unspecified lump in unspecified breast Plan: diagnostic mammo advised and US requested (2) Colitis: Code(s): K52.9 - Noninfective gastroenteritis and colitis, unspecified Plan: resolved (3) Adnexal cyst: Comment: Left incidental finding 06/2024 Code(s): N94.9 - Unspecified condition associated with female genital organs and menstrual cycle Plan: US pelvis next month Orders: Orders 2 US breast RT limited Today N63.0 - Unspecified lump in unspecified breast MM tomosynthesis diagnostic BI Today N63.0 - Unspecified lump in unspecified breast Coding Level of Care Code Est Pt Level 4 (65152) Diagnoses Breast nodule N63.0 Colitis K52.9 Adnexal cyst N94.9
== END 2024-07-07 14:24 | disposition home or self-care (01) ==
PROVIDERS: PCP Internal Medicine; Visit Provider Internal Medicine
DX: N63.13 Unspecified lump in the right breast, lower outer quadrant (principal); K52.9 Noninfective gastroenteritis and colitis, unspecified; N94.9 Unspecified condition associated with female genital organs and menstrual cycle
CPT/HCPCS: 99214

== ENCOUNTER 2024-09-27 09:02 | Outpatient (AMB) | payer OTHER, SELFPAY ==
--- NOTE | 2024-09-27 09:00 | A.OFFVIS_ITS ---
Vital Signs 09/27/24 09:04 Height 5 ft 6 in Weight 173 lb 8 oz BMI 28.0 BP 128/76 Blood Pressure Location Rt brachial Position Sitting Pulse 80 Pulse Source Pulse Oximeter Pulse Oximetry (%) 98 Oxygen Delivery Method Room Air Intake Visit Reasons: copd: 6 month f/u Allergies sertraline Adverse Reaction (Intermediate, Verified 09/27/24 09:08) memory issues HPI HPI copd: 6 month f/u: Details: Xochitl is a pleasant 48 year old, never smoker, with underlying asthma. She been well controlled on Breo and albuterol MDI, using albuterol infrequently she denies cough, wheezing, dyspnea or chest tightness. She denies any visits to Urgent Care or hospitalizations related to respiratory distress since last visit. Today she presents for routine follow-up. [facility] Medical History (Updated 08/11/24 @ 17:42 by Merlin Wilder MD) Colon cancer screening Endocervical polyp History of pulmonary embolism Factor 5 Leiden mutation, heterozygous Surgical History Hx of colonoscopy Lumbar disc herniation Family History Father [place] cell carcinoma Stroke Mother Stroke Diabetes Myocardial infarction Brother Leukemia Paternal Aunt Leukemia Esophageal cancer Paternal Uncle Leukemia Social History Household Members Other:: niece Housing: House Are you a primary residential child care counselor to a significant other at home: No Do you presently have visiting nurse or other home services: No Alcohol intake: current Alcohol intake frequency: holidays/special occasions only Comment: 1-2 a month 2 drinks Patient Tobacco Use Status: Never used Tobacco e-Cigarette/Vaping Use: Never Used Second Hand Smoke Exposure: No service: No Current occupational status: employed 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 Cognitive needs: No Hearing needs: No Vision needs: No Review of Systems Const Denies chills, Denies excessive sweating, Denies fever(s), Denies headache(s) and Denies night sweats Eyes Denies dry eyes, Denies irritation and Denies itchy eyes ENT Reports Normal hearing present, Denies headache(s), Denies nasal congestion, Denies nasal discharge, Denies post nasal drip and Denies sore throat Card Denies chest pain, Denies chest pain at rest, Denies chest pain with activity, Denies claudication, Denies leg edema, Denies dyspnea, Denies dyspnea on exertion, Denies orthopnea and Denies paroxysmal nocturnal dyspnea Resp Denies chest congestion, Denies cough, Denies excessive phlegm production, Denies pain on inspiration, Denies pain with cough, Denies dyspnea, Denies dyspnea on exertion, Denies stridor and Denies wheezing Musc Denies myalgias Neuro Reports Normal hearing present and Denies headache(s) Endo Denies excessive sweating Te/Lymph Denies lymphadenopathy Aller/Immun Denies itchy eyes, Denies seasonal rhinorrhea and Denies wheezing Physical Exam Vital Signs: Last Vital Signs Pulse 80 09/27/24 09:04 BP 128/76 09/27/24 09:04 Pulse Ox 98 09/27/24 09:04 Oxygen Delivery Method Room Air 09/27/24 09:04 BMI result Body Mass Index 28.0 Const General: cooperative, healthy appearing, comfortable, no acute distress, well developed and alert Orientation/consciousness: patient oriented x3 Limitations: no limitations HEENT Head: Yes normal to inspection, Yes normocephalic and Yes atraumatic Ears: hearing grossly normal bilaterally and external ears normal Eyes General: appearance normal, both eyes and all related structures Eyelids: Yes eyelids normal Sclerae: sclerae normal EOM: EOMs intact bilaterally Neck Neck: Yes normal visual inspection and Yes no lymphadenopathy Lymphatic: no lymphadenopathy noted Chest Chest palpation & inspection: normal inspection of the chest Resp Effort & Inspection: normal respiratory effort, able to speak in complete sentences, no audible wheezes, no cough, no stridor, not tachypneic, no tripod positioning and no use of accessory muscles Auscultation: clear to auscultation bilaterally Cardio Jugular venous distension: no JVD Rate: regular rate Rhythm: regular rhythm Skin Other: warm, dry General skin exam: no rashes or lesions noted Neuro General: patient oriented x3 Cranial nerves: Yes Normal hearing present Cognition (Neuro): normal cognition Gait exam (Neuro): Normal gait present Extrem General: Yes normal to inspection, Yes capillary refill normal, Yes no clubbing, cyanosis or edema and Yes no pedal edema Psych Appearance: grossly normal and well kempt Speech and movement: Normal speech and movement present and Clear speech present Affect: normal affect Attitude: cooperative Thought process: Normal thought process present Thought content: Normal thought content present Insight: Good insight present (Psych) Judgement: Good judgement present (Psych) Assessment & Plan Assessment & Plan (1) Asthma: Code(s): J45.909 - Unspecified asthma, uncomplicated Category: Medical Plan Kaushik reports excellent control of respiratory symptoms using Breo and albuterol MDI, advised to continue. All questions were answered and patient is in agreement of plan. Will follow up in 9 months or sooner if needed. Medications: Refilled fluticasone furoate-vilanterol 100-25 mcg/dose (Breo Ellipta) 1 inh inhalation DAILY 60 ea 6RF Coding Level of Care Code Est Pt Level 3 (93444) Diagnoses Asthma J45.909
[2024-09-27 09:04] VITALS: BP 128/76; PULSE 80; O2SAT 98; BMI 28.0
== END 2024-09-27 09:22 | disposition home or self-care (01) ==
PROVIDERS: PCP Internal Medicine; Visit Provider Nurse Practitioner Family
DX: J45.909 Unspecified asthma, uncomplicated (principal)
CPT/HCPCS: 99213

== ENCOUNTER → 2024-09-27 09:02 | Outpatient (BNVA) | payer OTHER, SELFPAY | PROVIDERS: PCP Internal Medicine; Visit Provider Nurse Practitioner Family ==

== ENCOUNTER 2024-10-18 14:39 | Outpatient (AMB) | payer OTHER, SELFPAY ==
--- NOTE | 2024-10-18 14:42 | A.OFFPC_ITS ---
Vital Signs 10/18/24 14:43 Height 5 ft 6 in Weight 176 lb BMI 28.4 BP 128/68 Blood Pressure Location Lt brachial Position Sitting Pulse 77 Pulse Source Pulse Oximeter Pulse Oximetry (%) 98 Oxygen Delivery Method Room Air Intake Visit Reasons: 3 Month F/U Allergies sertraline Adverse Reaction (Intermediate, Verified 10/18/24 14:43) memory issues Tobacco use date assessed: 12/22/23 Dental Screening Dental Screen Date: 03/31/24 HPI 3 Month F/U HPI Details 48-year-old overweight female with a his tory of generalized anxiety disorder factor 5 Leiden mutation heterozygous, asthma, impaired glucose tolerance coming in for follow-up. Last seen in June 2024 having a right breast mass. 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 Patient's colonoscopy is up-to-date. Review of the notes has been seen by Pulmonary on Breo and albuterol with excellent control.complains of RUQ abd pain recently, no n no v no fevers, this was a one time at that time only. complains of R dip pointer finger with pain PFSH Medical History (Updated 10/18/24 @ 15:17 by Merlin Wilder MD) Colon cancer screening Endocervical polyp History of pulmonary embolism Factor 5 Leiden mutation, heterozygous Surgical History Hx of colonoscopy Lumbar disc herniation Family History Father Kamran cell carcinoma Stroke Mother Stroke Diabetes Myocardial infarction Brother Leukemia Paternal Aunt Leukemia Esophageal cancer Paternal Uncle Leukemia Social History Household Members Other:: niece Housing: House Are you a primary rn care transition to a significant other at home: No Do you presently have visiting nurse or other home services: No Alcohol intake: current Alcohol intake frequency: holidays/special occasions only Comment: 1-2 a month 2 drinks Patient Tobacco Use Status: Never used Tobacco Tobacco use type: Cigarette e-Cigarette/Vaping Use: Never Used Second Hand Smoke Exposure: No service: No Current occupational status: employed 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 1. Little interest or pleasure in doing things: more than half the days 2. Feeling down, depressed, or hopeless: more than half the days 3. Trouble falling or staying asleep, or sleeping too much: more than half the days 4. Feeling tired or having little energy: not at all 5. Poor appetite or overeating: not at all 6. Feeling bad about yourself - or that you are a failure or have let yourself or your family down: not at all 7. Trouble concentrating on things, such as reading the newspaper or watching television: not at all 8. Moving or speaking so slowly that other people could have noticed. Or the opposite - being so fidgety or restless that you have been moving around a lot more than usual: not at all 9. Thoughts that you would be better off or of hurting yourself in some way: not at all Total score: 6 Depression Screening Interpretation: Negative Depression Screening Done: Yes Source: Developed by Drs. Jimi Schwartz, Rebecca Kingsley, Austin Mata and colleagues, with an educational paige from [employer]. Thrive Questionnaire Date Thrive assessed: 12/22/23 AUDIT C Alcohol Use Questionnaire (AUDIT-C) 1. How often do you have a drink containing alcohol?: Monthly or less 2. How many drinks containing alcohol do you have on a typical day when you are drinking?: 1 or 2 3. How often do you have six or more drinks on one occasion?: Never Total Score: 1 Score Reviewed/Action Taken: No GABY-7 AMB Questionnaire GABY-7 Date GABY - 7 assessed: 12/22/23 Source: Developed by Drs. Jimi Schwartz, Austin Peter and colleagues, with an educational paige from [employer]. Physical exam (Primary Care) Vital Signs: Last Vital Signs Pulse 77 10/18/24 14:43 BP 128/68 10/18/24 14:43 Pulse Ox 98 10/18/24 14:43 Oxygen Delivery Method Room Air 10/18/24 14:43 BMI result Body Mass Index 28.4 Tobacco/Smoking Status: Tobacco use Status Tobacco use date assessed 12/22/23 10/18/24 14:47 Patient Tobacco Use Status Never used Tobacco 10/18/24 14:47 Tobacco use type Cigarette 10/18/24 14:47 e-Cigarette/Vaping Use Never Used 10/18/24 14:47 PHQ-9: PHQ-9 Score PHQ-9: Total score 6 10/18/24 15:21 Depression Screening Interpretation: Negative Thrive Assessment: Date of Thrive Assessment Date Thrive assessed 12/22/23 10/18/24 14:47 Const General: alert; No acute distress Eyes Conjunctivae: conjunctivae normal Resp Auscultation: clear to auscultation bilaterally Cardio Rate: regular rate Rhythm: regular rhythm GI Other: mild RUQ tenderness, no rebound , no guarding Extrem Other: R dip pointer finger mild enlargement and redness General: No edema Office Procedures Flu Questionnaire Does the patient have a severe egg allergy?: No Does the patient have severe life threatening allergies?: No Does the patient have a fever or illness today?: No Has the patient ever had Guillain-[place] Syndrome?: No Has the patient ever had any past reaction to a flu shot?: No Immunizations Fluarix Triv [id number] (PF) 45 mcg (15 mcg x 3)/0.5 mL IM syringe Performing Provider: Merlin Wilder MD [facility] Administered by: Tea Alvarado CMA on 10/18/24 15:21 Dose Route Admin Location Dispensed Lot Number Expiration Date [facility] Assistant Women'[employer] Rowing [employer] 0.5 mL IM Left Deltoid 0.5 mL [id number] 05/15/25 [id number] [employer] VIS Given Date VIS Provided VIS Publication Date 10/18/24 Single Vaccine 21 Eligibility Eligibility Date Funding Source Not [facility] Eligible 10/18/24 Private Coding Level of Care Code Est Pt Level 4 (91938) Diagnoses Mass of lower outer quadrant of right breast N63.13 Mild intermittent asthma without complication J45.20 Asthma complication type: uncomplicated Asthma persistence: intermittent Asthma severity: mild Overweight (BMI 25.0-29.9) E66.3 Generalized anxiety disorder F41.1 Impaired fasting blood sugar R73.01 RUQ abdominal pain R10.11 Finger pain, right M79.644 Assessment & Plan Assessment & Plan (1) Mass of lower outer quadrant of right breast: Comment: 08/04/2024 ultrasound core biopsy done fibroadenoma Code(s): N63.13 - Unspecified lump in the right breast, lower outer quadrant Category: Medical Plan: Biopsy proven benign mass and advised 6 months ultrasound post biopsy (2) Asthma: Code(s): J45.909 - Unspecified asthma, uncomplicated Category: Medical Qualifiers: Asthma complication type: uncomplicated Asthma persistence: intermittent Asthma severity: mild Qualified Code(s): J45.20 - Mild intermittent asthma, uncomplicated Plan: Patient has excellent control follows up with Pulmonary on controller Breo. (3) Overweight (BMI 25.0-29.9): Code(s): E66.3 - Overweight Category: Medical Plan: Diet and exercise (4) Generalized anxiety disorder: Code(s): F41.1 - Generalized anxiety disorder Category: Medical Plan: Stable (5) Impaired fasting blood sugar: Code(s): R73.01 - Impaired fasting glucose Category: Medical Plan: Decrease the amount of carbohydrate intake, pasta, bread, rice and potatoes are all sugar and that is aside from all the sweet stuff, remember that fruits are good but they are Sweet also. (6) RUQ abdominal pain: Code(s): R10.11 - Right upper quadrant pain Category: Medical Plan: Because of the right upper quadrant pain will order for an ultrasound of the abdomen (7) Finger pain, right: Code(s): M79.644 - Pain in right finger(s) Category: Medical Plan: X-ray of the finger requested Orders: Orders US abdomen complete Today R10.11 - Right upper quadrant pain, R79.89 - Other specified abnormal findings of blood chemistry XR finger RT min 2V Today M79.644 - Pain in right finger(s) Influenza [id number] Immunization Today Z23 - Encounter for immunization Referrals Nutrition/Dietitian Referral E66.3 - Overweight, R73.01 - Impaired fasting glucose
[2024-10-18 14:43] VITALS: BP 128/68; PULSE 77; O2SAT 98; BMI 28.4
== END 2024-10-18 15:27 | disposition home or self-care (01) ==
PROVIDERS: PCP Internal Medicine; Visit Provider Internal Medicine
DX: N63.13 Unspecified lump in the right breast, lower outer quadrant (principal); J45.20 Mild intermittent asthma, uncomplicated; E66.3 Overweight; F41.1 Generalized anxiety disorder; R73.01 Impaired fasting glucose; R10.11 Right upper quadrant pain; M79.644 Pain in right finger(s); Z23 Encounter for immunization

== ENCOUNTER → 2024-10-18 14:39 | Outpatient (BNVA) | payer OTHER, SELFPAY | PROVIDERS: PCP Internal Medicine; Visit Provider Internal Medicine | DX: N63.13 Unspecified lump in the right breast, lower outer quadrant (principal); J45.20 Mild intermittent asthma, uncomplicated; E66.3 Overweight; F41.1 Generalized anxiety disorder; R73.01 Impaired fasting glucose; R10.11 Right upper quadrant pain; M79.644 Pain in right finger(s); Z23 Encounter for immunization | CPT/HCPCS: 90471; 90656; 96127 ==

== ENCOUNTER 2024-11-01 08:05 | Outpatient (REF) | payer OTHER, SELFPAY | END 2024-11-01 08:06 | disposition home or self-care (01) | LOC: HO.US 08:05 | PROVIDERS: PCP Internal Medicine; Visit Provider Internal Medicine | DX: M79.644 Pain in right finger(s) (principal); R10.11 Right upper quadrant pain; R79.89 Other specified abnormal findings of blood chemistry | CPT/HCPCS: 73140; 76700 ==

== ENCOUNTER 2024-11-01 11:34 | Outpatient (AMB) | payer OTHER, SELFPAY ==
--- NOTE | 2024-11-01 11:44 | A.OFFVIS_ITS ---
VS Expanded 11/01/24 11:45 11/20/24 09:00 Height 5 ft 6 in 5 ft 6 in Weight 174 lb 13.225 oz 175 lb BMI 28.2 28.2 Intake Visit Reasons: Impaired fasting glucose/Left vm Allergies sertraline Adverse Reaction (Intermediate, Verified 10/18/24 14:43) memory issues Nutrition Presentation Details: Pt presents for MNT f/u for IFG Pt reports working on making diet modifications, switching to vegetarian diet since Jul, including meat alternatives Reports having 3 meals/day and >3 snacks /day B: Eggwhites (4) and cheese omelets on 2 pieces of wheat breads , tea or water L: beans /rice/toast, water or fruit D: mac and cheese, fruit or salad with eggs/cheese snack: cracker w peanut butter food frequency fruits: 2-3 vegetables: 2-3 x/day dairy: 5+ starches> 20 physical activity: daily life activities BS Monitoring Most Recent Diabetes Results: No Data to Display UYV-Mnyvrhg-Py.Jeor Equation Height: 5 ft 6 in Weight: 175 lb Resting Metabolic Rate: 1443.58 Calculated Activity Level: Mild Activity Calories Needed to Maintain Weight: 1984.92 Diagnosis Nutrition problem #1: food nutri know defi As related to (etiology) #1: diagnosis As evidenced by (sign/symptom) #1: knowledge deficit of diet Monitoring/Goals Nutrition problem monitoring: glucose, fasting and total CHO intake [facility] Medical History (Updated 11/07/24 @ 18:51 by Merlin Wilder MD) Colon cancer screening Endocervical polyp History of pulmonary embolism Factor 5 Leiden mutation, heterozygous Surgical History Hx of colonoscopy Lumbar disc herniation Family History Father Kamran cell carcinoma Stroke Mother Stroke Diabetes Myocardial infarction Brother Leukemia Paternal Aunt Leukemia Esophageal cancer Paternal Uncle Leukemia Social History Household Members Other:: niece Housing: House Are you a primary body care manager to a significant other at home: No Do you presently have visiting nurse or other home services: No Alcohol intake: current Alcohol intake frequency: holidays/special occasions only Comment: 1-2 a month 2 drinks Patient Tobacco Use Status: Never used Tobacco Tobacco use type: Cigarette e-Cigarette/Vaping Use: Never Used Second Hand Smoke Exposure: No service: No Current occupational status: employed 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 Cognitive needs: No Hearing needs: No Vision needs: No Assessment & Plan Assessment & Plan (1) Impaired fasting blood sugar: Code(s): R73.01 - Impaired fasting glucose Category: Medical Plan: Wt: 80 Kg ( 11/08 ) Est kcal needs as per MSJ: 2000 (40% carb, 30% protein/fat) Est fluid needs as per 25-30 ml/d: 2400 Est prot per day as per 1 g/kg bw: 80 Recommend fiber intake : 8-10 g per day and gradually increase to 25-28 g per day for women and 35-38 g for men or as tolerated Recommend sodium intake per day : less than 2300 mg Educated patient on: ( R = reviewed V = verbalizes understanding N/R = needs review N/A = not applicable * Food sources of carbohydrate, adequate serving sizes and its role in various health conditions: R ,V * Differences between complex carbohydrates a simple carbohydrates, role of fiber in diet: R , V * Lean protein sources of foods: R ,V * Differences between types of fats and role in diet (mono on saturated fat fatty acids, saturated fatty acids, trans fats): R * Food sources of sodium in salt and healthy modifications for heart health in kidney health: R V R/V * Vitamins and minerals: R V N/R * Healthy plate method concept: R * Physical activity: Benefits a precaution: R V N/R * Hypoglycemia protocol (rule of 15): R V N/R * Dietary prevention of Hyperglycemia: R Patient Instructions: * Mindful eating * Choose fiber rich foods and pay attention to total carbohydrates work on reducing carbs to 60-75 g at meals and 20 g as snack, limit snacks to times/day Coding Level of Care Code Nutr Indiv Intake (99061) Diagnoses Impaired fasting blood sugar R73.01 Time Spent (min) 30
[2024-11-01 11:45] VITALS: BMI 28.2
[2024-11-20 09:00] VITALS: BMI 28.2
== END 2024-11-01 12:22 | disposition home or self-care (01) ==
PROVIDERS: PCP Internal Medicine; Visit Provider Dietitian, Registered
DX: R73.01 Impaired fasting glucose (principal)

== ENCOUNTER 2024-12-06 11:24 | Outpatient (AMB) | payer OTHER, SELFPAY ==
--- NOTE | 2024-12-06 11:26 | A.OFFVIS_ITS ---
VS Expanded 12/06/24 11:27 Height 5 ft 6 in Weight 175 lb 4.28 oz BMI 28.3 Intake Visit Reasons: IFG Allergies sertraline Adverse Reaction (Intermediate, Verified 10/18/24 14:43) memory issues Nutrition Presentation Details: Pt presents for MNT f/u for pre dm BS Monitoring Most Recent Diabetes Results: No Data to Display PFSH Medical History (Updated 11/07/24 @ 18:51 by Merlin Wilder MD) Colon cancer screening Endocervical polyp History of pulmonary embolism Factor 5 Leiden mutation, heterozygous Surgical History Hx of colonoscopy Lumbar disc herniation Family History Father Kamran cell carcinoma Stroke Mother Stroke Diabetes Myocardial infarction Brother Leukemia Paternal Aunt Leukemia Esophageal cancer Paternal Uncle Leukemia Social History Household Members Other:: niece Housing: House Are you a primary ambulatory care to a significant other at home: No Do you presently have visiting nurse or other home services: No Alcohol intake: current Alcohol intake frequency: holidays/special occasions only Comment: 1-2 a month 2 drinks Patient Tobacco Use Status: Never used Tobacco Tobacco use type: Cigarette e-Cigarette/Vaping Use: Never Used Second Hand Smoke Exposure: No service: No Current occupational status: employed 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 Cognitive needs: No Hearing needs: No Vision needs: No Assessment & Plan Assessment & Plan (1) Impaired fasting blood sugar: Code(s): R73.01 - Impaired fasting glucose Category: Medical Plan: Wt: 80 Kg ( 11/08 ) Est kcal needs as per MSJ: 2000 (40% carb, 30% protein/fat) Est fluid needs as per 25-30 ml/d: 2400 Est prot per day as per 1 g/kg bw: 80 Recommend fiber intake : 8-10 g per day and gradually increase to 25-28 g per day for women and 35-38 g for men or as tolerated Recommend sodium intake per day : less than 2300 mg Educated patient on: ( R = reviewed V = verbalizes understanding N/R = needs review N/A = not applicable * Food sources of carbohydrate, adequate serving sizes and its role in various health conditions: R ,V * Differences between complex carbohydrates a simple carbohydrates, role of fiber in diet: R , V * Lean protein sources of foods: R ,V * Differences between types of fats and role in diet (mono on saturated fat fatty acids, saturated fatty acids, trans fats): R * Food sources of sodium in salt and healthy modifications for heart health in kidney health: R V R/V * Vitamins and minerals: R V N/R * Healthy plate method concept: R * Physical activity: Benefits a precaution: R V N/R * Hypoglycemia protocol (rule of 15): R V N/R * Dietary prevention of Hyperglycemia: R Patient Instructions: - Engage in physical activity, start with 15 minutes twice a week keep working on mindfulness reducing on sugary foods,pastries (foods high in sugar and fats) choose a fruit instead Coding Level of Care Code Nutr Indiv Subseq (73583) Diagnoses Impaired fasting blood sugar R73.01 Time Spent (min) 20
[2024-12-06 11:27] VITALS: BMI 28.3
== END 2024-12-06 11:55 | disposition home or self-care (01) ==
PROVIDERS: PCP Internal Medicine; Visit Provider Dietitian, Registered
DX: R73.01 Impaired fasting glucose (principal)

== ENCOUNTER → 2024-12-06 11:24 | Outpatient (BNVA) | payer OTHER, SELFPAY | PROVIDERS: PCP Internal Medicine; Visit Provider Dietitian, Registered | DX: R73.01 Impaired fasting glucose (principal); Z71.3 Dietary counseling and surveillance | CPT/HCPCS: 97803 ==

== ENCOUNTER 2024-12-12 09:37 | Outpatient (REF) | payer OTHER, SELFPAY ==
[2024-12-12 09:57] LABS: MANUAL DIFF FLAG NO
[2024-12-12 10:45] LABS: Basophils Absolute Auto 0.1 X10*3/uL (0.0-0.2); Basophils Percent Auto 0.8 % (0-2); Eosinophils Absolute Auto 0.3 X10*3/uL (0.0-0.4); Eosinophils Percent Auto 3.9 % (0-4); Hematocrit 41.4 % (37.0-47.0); Hemoglobin 13.5 g/dl (12.0-16.0); Imm Gran Abs Auto 0.05 X10*3/uL (0.00-0.03); Imm Gran Pct Auto 0.6 % (0.0-0.4); Lymphocytes Absolute Auto 2.8 X10*3/uL (1.2-4.9); Lymphocytes Percent Auto 31.6 % (20-40); Mean Corpuscular HGB Conc 32.6 g/dl (31.0-35.0); Mean Corpuscular Hemoglobin 29.2 pg (27.0-33.0); Mean Corpuscular Volume 89.4 fL (80.0-98.0); Mean Platelet Volume 10.3 fL (9.4-12.3); Monocytes Absolute Auto 0.7 X10*3/uL (0.1-1.2); Monocytes Percent Auto 7.6 % (2-11); Neutrophils Absolute Auto 4.8 x10*3/uL (2.0-8.3); Neutrophils Percent Auto 55.5 % (45-73); Platelet Count 250 X10*3/uL (160-400); Red Blood Count 4.63 X10*6/uL (4.20-5.50); Red Cell Distribution Width 13.4 % (11.0-16.0); White Blood Count 8.7 X10*3/uL (4.8-10.8)
[2024-12-12 10:53] LABS: Estimated Average Glucose 117 mg/dL; Hemoglobin A1C 135.8872 umol/L; Hemoglobin A1c % 5.7 % (<6.0); Total Hemoglobin (HGBA1C) 3477.8507 umol/L
[2024-12-12 11:42] LABS: Alanine Aminotransferase 29 U/L (0-31); Albumin Level 4.1 g/dL (3.5-5.0); Alkaline Phosphatase 58 U/L (39-117); Anion Gap 11 (12-20); Aspartate Amino Transferase 27 U/L (5-31); Bilirubin Total 0.5 mg/dL (0.0-1.0); Blood Urea Nitrogen 13 mg/dL (9-16); Carbon Dioxide 28 mmol/L (22-29); Chloride 107 mmol/L (96-108); Cholesterol 163 mg/dL (<200); Estimated Glomerular Filt Rate > 60; Free T4 (Free Thyroxine) 0.84 ng/dL (0.71-1.85); Glucose Random 101 mg/dL (60-115); HDL Cholesterol 45 mg/dL (>40); LDL Cholesterol Calculated 99 mg/dL (<100); Potassium 4.8 mmol/L (3.3-5.1); Sodium 141 mmol/L (135-145); Thyroid Stimulating Hormone 1.92 uIU/mL (0.32-4.0); Total Protein 7.6 g/dL (6.5-8.0); Triglycerides 97 mg/dL (<150); Vitamin D 25-OH Total 35.3 ng/mL (>30)
[2024-12-12 11:52] LABS: Folate 12.2 ng/mL (> or = 4.0); Vitamin B12 300 pg/mL (200-900)
--- OUTSIDE RECORDS SUMMARY | 2024-12-12 14:03 | XMS_ITS | Clinical Summary ---
Author Organization [facility] Address [address] [place] [address] Care Team Providers Care Rn Geriatric Name Role Phone Unavailable Primary Care Provider Unavailabl e Social History Tobacco Use Types Packs/Day Years Used Date Smoking Tobacco: Never Assessed Sex and Gender Information Value Date Recorded Sex Assigned at Not on file Gender Identity Not on file Sexual Orientation Not on file Plan of Treatment Health Maintenance Due Date Last Done Comments Breast Cancer Screening 1975 DTaP,Tdap,and Td Vaccines (1 - Tdap) 1994 Hepatitis B Vaccines (1 of 3 - 19+ 3-dose series) 1994 Cervical Cancer Screening: P ap Smear 1996 COVID-19 Vaccine (2023-2 5 season) 2024 Influenza Vaccine (#1) 2024 Colorectal Cancer Screening: Colonoscopy 08/25/2024 Depression Screening 08/25/2024 HIV Screening 08/25/2024 Hepatitis C Screening 08/25/2024 Social Influencers of Health Screening 08/25/2024 HIB Vaccines Aged Out No longer eligi ble based on patient's age to complete this topic HPV Vaccines Aged Out No longer eligi ble based on patient's age to complete this topic Hepatitis A Vaccines Aged Out No long er eligible based on patient's age to complete this topic IPV Vaccines Aged Out No longer eligi ble based on patient's age to complete this topic MMR Vaccines Aged Out No longer eligi ble based on patient's age to complete this topic Meningococcal ACWY Vaccine Aged Out N o longer eligible based on patient's age to complete this topic Pneumococcal Vaccine: Pediat rics (0 to 5 Years) and At-Risk Patients (6 to 64 Years) Aged Out No longer eligible b ased on patient's age to complete this topic RSV Immunization Patients Un neris 20 months Aged Out No longer eligible b ased on patient's age to complete this topic Varicella Vaccines Aged Out No longer eligible based on patient's age to complete this topic
== END 2024-12-12 09:38 | disposition home or self-care (01) ==
LOC: HO.LAB 09:37
PROVIDERS: PCP Internal Medicine; Visit Provider Internal Medicine
DX: R73.01 Impaired fasting glucose (principal); E78.00 Pure hypercholesterolemia, unspecified
CPT/HCPCS: 36415; 80053; 80061; 82306; 82607; 82746; 83036; 84439; 84443; 85025

== ENCOUNTER 2024-12-26 11:21 | Outpatient (AMB) | payer OTHER, SELFPAY ==
--- NOTE | 2024-12-26 11:24 | MHC.PC.OV ---
Vital Signs 12/26/24 11:25 Height 5 ft 6 in Weight 174 lb BMI 28.1 BP 118/80 Blood Pressure Location Lt brachial Position Sitting Pulse 83 Pulse Source Pulse Oximeter Pulse Oximetry (%) 98 Oxygen Delivery Method Room Air Intake Visit Reasons: pe Pocketbook Maker Required: No Accompanied by: Self / Same As Patient Allergies sertraline Adverse Reaction (Intermediate, Verified 12/26/24 11:27) memory issues Medication List - Last Reconciled 12/26/24 by Merlin Wilder MD albuterol sulfate 90 mcg/actuation (Ventolin HFA) 2 puffs inhalation Q4-6H PRN aspirin (Adult Aspirin Regimen) 81 mg PO DAILY cholecalciferol (vitamin D3) 25 mcg PO DAILY fluticasone furoate-vilanterol 100-25 mcg/dose (Breo Ellipta) 1 inh inhalation DAILY lidocaine 5% 1 patch topical DAILY Tobacco use date assessed: 12/26/24 Dental Screening Dental Screen Date: 12/26/24 Did you have a dental visit in the last 12 months?: Yes Did you have a dental problem in the last 6 months where you did not have access to dental care?: No Was dental information given to patient?: Patient has dentist HPI pe HPI Details The patient is a 49-year-old female presenting for a wellness examination and review of recent medical issues including general anxiety disorder, breast mass, impaired glucose tolerance, and mild hydronephrosis. She has a history of a benign right breast mass confirmed by biopsy, last evaluated via mammogram. She reports imaging findings, with an ultrasound having revealed mild fullness of the left renal pelvis and minor hydronephrosis, for which a computed tomography (CT) scan is scheduled. Her previous colonoscopy in January 2023 identified an adenomatous polyp. She experiences impaired glucose tolerance based on a hemoglobin A1c of 5.7%. 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 No exacerbations of general anxiety disorder are reported. Her familial medical history includes several cancer diagnoses. She maintains stable asthma managed by Breo inhaler, with no current sertraline use due to side effects. Her health management involves dietary modifications guided by a transportation maintenance specialist, aiming to manage hepatic steatosis and impaired glucose tolerance. 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 - Drinks alcohol lightly, approximately twice a month - No smoking or recreational drug use reported - Reports inconsistent water intake outside of work - Primarily consumes carbohydrates and vegetables, recently avoiding meat - Advised by a transportation maintenance specialist on dietary adjustments for glucose and liver health - Current physical activity levels reported as low - Respiratory: Denies shortness of breath, wheezing, or cough - Cardiovascular: Denies chest pain, palpitations, or dizziness - Gastrointestinal: Reports irregular bowel movements, denies blood in stools - Musculoskeletal: Denies joint pain, except osteoarthritis noted on x-ray - Neurological: Denies dizziness or syncope - Labs: Hemoglobin A1c at 5.7% - Tests: Mammogram identified benign breast mass; last colonoscopy confirmed adenomatous polyp - Diagnostics: Ultrasound of abdomen revealed hepatic steatosis and mild hydronephrosis of left renal pelvis PFSH Medical History (Updated 12/26/24 @ 11:45 by Merlin Wilder MD) History of adenomatous polyp of colon Colon cancer screening Endocervical polyp History of pulmonary embolism Factor 5 Leiden mutation, heterozygous Surgical History Hx of colonoscopy Lumbar disc herniation Family History (Updated 12/26/24 @ 11:51 by Merlin Wilder MD) Father [place] cell carcinoma Stroke Mother Stroke Diabetes Myocardial infarction Brother Leukemia Paternal Aunt Leukemia Esophageal cancer Paternal Uncle Leukemia Paternal Grandfather Stroke Social History (Updated 12/26/24 @ 11:52 by Merlin Wilder MD) Household Members Other:: niece Housing: House Are you a primary customer care associate to a significant other at home: No Do you presently have visiting nurse or other home services: No Alcohol intake: current Alcohol intake frequency: holidays/special occasions only Comment: 1-2 a month 2-3 drinks Patient Tobacco Use Status: Never used Tobacco e-Cigarette/Vaping Use: Never Used Second Hand Smoke Exposure: No service: No Current occupational status: employed 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 1. Little interest or pleasure in doing things: several days 2. Feeling down, depressed, or hopeless: several days 3. Trouble falling or staying asleep, or sleeping too much: not at all 4. Feeling tired or having little energy: not at all 5. Poor appetite or overeating: not at all 6. Feeling bad about yourself - or that you are a failure or have let yourself or your family down: not at all 7. Trouble concentrating on things, such as reading the newspaper or watching television: not at all 8. Moving or speaking so slowly that other people could have noticed. Or the opposite - being so fidgety or restless that you have been moving around a lot more than usual: not at all 9. Thoughts that you would be better off or of hurting yourself in some way: not at all Total score: 2 Source: Developed by Drs. Jimi Schwartz, Rebecca Kingsley, Austin Mata and colleagues, with an educational paige from [employer]. Thrive Questionnaire Date Thrive assessed: 12/26/24 I am a: Patient What is your living situation today?: I have a steady place to live Within the past 12 months, did the food you bought not last and you didn't have the money to get more?: Never true Within the past 12 months, did you worry whether your food would run out before you got money to buy more?: Never true Do you have trouble paying for medicines?: No Do you have trouble getting transportation to medical appointments?: No Do you have trouble paying your heating and electricity bill?: No Do you have trouble taking care of your child, family member or friend?: No Do you have trouble with day-to-day activities such as bathing, preparing meals, shopping, managing finances, etc.?: No Are you currently unemployed and looking for a job?: No Are you interested in more education?: Yes Please select the resources that you would like help with: None Currently or been in a relationship where the following occur: No concerns reported THRIVE Score: 0 AUDIT C Alcohol Use Questionnaire (AUDIT-C) 1. How often do you have a drink containing alcohol?: Monthly or less 2. How many drinks containing alcohol do you have on a typical day when you are drinking?: 1 or 2 3. How often do you have six or more drinks on one occasion?: Never Total Score: 1 GABY-7 AMB Questionnaire GABY-7 Date GABY - 7 assessed: 12/26/24 Feeling nervous, anxious, or on edge: 1 = Several days Not being able to stop or control worryin = Not at all Worrying too much about different things: 1 = Several days Trouble relaxin = Not at all Being so restless that it is hard to sit still: 0 = Not at all Becoming easily annoyed or irritable: 0 = Not at all Feeling afraid as if something awful might happen: 0 = Not at all Total GABY-7 score (0-4 normal; 5-9 mild; 10-14 moderate; 15-21 severe): 2 Source: Developed by Drs. Jimi Schwartz, Rebecca Kingsley, Austin Mata and colleagues, with an educational paige from [employer]. Review of Systems Const Denies poor appetite and Denies weakness Eyes Denies no additional complaints ENT Reports Normal hearing present, Denies dizziness, Denies nasal congestion, Denies tinnitus and Denies sore throat Card Denies chest pain, Denies syncope, Denies rapid heart rate and Denies dyspnea Resp Denies cough and Denies dyspnea GI Denies change in stool character, Reports constipation, Denies diarrhea, Denies nausea and Denies vomiting Denies urinary frequency, Denies difficulty voiding and Denies dysuria Neuro Reports Normal hearing present, Denies confusion, Denies dizziness, Denies syncope and Denies weakness Psych Denies confusion Physical exam (Primary Care) Vital Signs: Last Vital Signs Pulse 83 12/26/24 11:25 BP 118/80 12/26/24 11:25 Pulse Ox 98 12/26/24 11:25 Oxygen Delivery Method Room Air 12/26/24 11:25 BMI result Body Mass Index 28.1 Tobacco/Smoking Status: Tobacco use Status Tobacco use date assessed 12/26/24 12/26/24 11:29 Patient Tobacco Use Status Never used Tobacco 12/26/24 11:52 Tobacco use type 12/26/24 11:29 e-Cigarette/Vaping Use Never Used 12/26/24 11:52 PHQ-9: PHQ-9 Score PHQ-9: Total score 2 12/26/24 11:46 Thrive Assessment: Date of Thrive Assessment Date Thrive assessed 12/26/24 12/26/24 11:29 Currently or been in a relationship where the following occur: No concerns reported Const General: No confusion Orientation/consciousness: No confusion HENMT Head: Yes normocephalic Ears: external ears normal and TM's normal bilaterally Face and sinus: Yes normal facial exam Mouth: moist mucous membranes Throat: Yes tonsils normal Eyes Conjunctivae: conjunctivae normal Pupils: Equal, round and reactive pupils present and Pupil accommodation reflex normal Direct Ophthalmoscopy: normal light reflex Neck Neck: No lymphadenopathy Thyroid: Thyroid normal Chest Chest palpation & inspection: normal inspection of the chest Resp Effort & Inspection: normal respiratory effort and no audible wheezes Auscultation: clear to auscultation bilaterally, no crackles, no wheezes and lung sounds not diminished Cardio Rate: regular rate Rhythm: regular rhythm Peripheral pulses: radial pulses present and dorsalis pedis present GI Palpation (GI): no masses Auscultation: normal bowel sounds and normoactive bowel sounds Rectal Exam - Female: deferred Abdomen image: 1. 5 mm mass noted inframammary Skin General skin exam: no rashes or lesions noted Rashes: no rashes Neuro General: No confusion Cranial nerves: Yes Equal, round and reactive pupils present and Yes Normal hearing present Cognition (Neuro): normal cognition Gait exam (Neuro): Normal gait present Motor exam (neuro): 5/5 motor strength present throughout Deep tendon reflexes (DTR's): Right brachioradialis reflex intensity grade: 2+, Left brachioradialis reflex intensity grade: 2+, Right patellar reflex intensity grade: 2+ and Left patellar reflex intensity grade: 2+ Extrem General: No edema Coding Level of Care Code Est Pt Prev Care 40-64y(05265) Diagnoses Annual physical exam Z00.00 Generalized anxiety disorder F41.1 Overweight (BMI 25.0-29.9) E66.3 Mild intermittent asthma without complication J45.20 Asthma complication type: uncomplicated Asthma persistence: intermittent Asthma severity: mild Impaired fasting blood sugar R73.01 Hydronephrosis, left N13.30 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 (2) Generalized anxiety disorder: Code(s): F41.1 - Generalized anxiety disorder Category: Medical Plan: Stable (3) Overweight (BMI 25.0-29.9): Code(s): E66.3 - Overweight Category: Medical Plan: Continue with diet and exercise (4) Asthma: Code(s): J45.909 - Unspecified asthma, uncomplicated Category: Medical Qualifiers: Asthma complication type: uncomplicated Asthma persistence: intermittent Asthma severity: mild Qualified Code(s): J45.20 - Mild intermittent asthma, uncomplicated Plan: Continue with the inhaler as needed has been prescribed a controller Breo (5) Impaired fasting blood sugar: Code(s): R73.01 - Impaired fasting glucose Category: Medical Plan: Decrease the amount of carbohydrate intake, pasta, bread, rice and potatoes are all sugar and that is aside from all the sweet stuff, remember that fruits are good but they are Sweet also. (6) Hydronephrosis, left: Code(s): N13.30 - Unspecified hydronephrosis Category: Medical Plan: CT scan requested and pending. (7) Osteoarthritis of finger: Code(s): M19.049 - Primary osteoarthritis, unspecified hand Category: Medical Plan: Discussed continue keeping active. Plan - Continue current asthma management with Breo inhaler, monitoring effectiveness - Review CT scan results once completed to address mild hydronephrosis and rule out significant obstruction or cysts - Monitor glucose levels and continue dietary consultation to control impaired glucose tolerance - Continue regular physical activity to enhance cardiovascular and metabolic health - Address any dermatological concerns if changes in the chest bump occur - Encourage increased hydration and balanced diet to regulate bowel movements - Re-evaluate osteoarthritis-related symptoms of the joint as necessary During this discussion, I addressed the patient?s ongoing wellness needs and the preventive care measures necessary to manage her complex health conditions. The primary management focus was on her hepatic steatosis and impaired glucose tolerance, where I reinforced the importance of dietary modifications and maintaining physical activity. Recognizing her anxiety disorder, a stable approach to medication use and counseling was affirmed. Bloodwork and current imaging studies were reviewed, with expectations aligned for future investigations including the scheduled CT scan. I explained the procedural objectives of the CT scan in evaluating potential renal obstructions. I emphasized maintaining a healthy lifestyle and regular movement, considering her reported sedentary work environment. Discussion covered health risks like familial cancer history, providing reassurance on current preventive measures. - Continue using Breo inhaler as prescribed and rinse mouth after use - Keep the scheduled CT scan appointment for kidney evaluation - Maintain dietary adjustments as per transportation maintenance specialist?s guidance to manage glucose levels - Increase physical activity as able, focusing on cardio exercises - Report any changes in health status, especially related to the chest bump - Drink adequate water daily to aid digestive health - Schedule follow-up lab work in six months for glucose monitoring - Avoid smoking, maintain low alcohol use, and focus on a balanced diet Orders: Orders Comprehensive Met. Panel 6 Months R73.01 - Impaired fasting glucose Complete Blood Count Auto Diff 6 Months R73.01 - Impaired fasting glucose Hemoglobin A1c 6 Months R73.01 - Impaired fasting glucose
[2024-12-26 11:25] VITALS: BP 118/80; PULSE 83; O2SAT 98; BMI 28.1
== END 2024-12-26 12:12 | disposition home or self-care (01) ==
PROVIDERS: PCP Internal Medicine; Visit Provider Internal Medicine
DX: Z00.00 Encounter for general adult medical examination without abnormal findings (principal); F41.1 Generalized anxiety disorder; E66.3 Overweight; J45.20 Mild intermittent asthma, uncomplicated; R73.01 Impaired fasting glucose; N13.30 Unspecified hydronephrosis; M19.049 Primary osteoarthritis, unspecified hand

== ENCOUNTER 2024-12-27 08:10 | Outpatient (REF) | payer OTHER, SELFPAY ==
[2024-12-27] MEDS: iohexoL 350 MG/ML 100 ML INFUS..BTL IV (09:18)
== END 2024-12-27 08:11 | disposition home or self-care (01) ==
LOC: HO.CT 08:10
PROVIDERS: PCP Internal Medicine; Visit Provider Internal Medicine
DX: N13.30 Unspecified hydronephrosis (principal)
CPT/HCPCS: 74178; Q9967

== ENCOUNTER → 2024-12-27 08:11 | Outpatient (BNV) | payer OTHER, SELFPAY | PROVIDERS: PCP Internal Medicine; Visit Provider Radiology Diagnostic Radiology | DX: N13.30 Unspecified hydronephrosis (principal); N83.202 Unspecified ovarian cyst, left side; N28.1 Cyst of kidney, acquired | CPT/HCPCS: 74178 ==

== ENCOUNTER 2025-02-13 10:59 | Outpatient (AMB) | payer OTHER, SELFPAY ==
--- NOTE | 2025-02-13 11:03 | A.OFFVIS_ITS ---
VS Expanded 02/13/25 11:08 Height 5 ft 6 in Weight 176 lb 12.972 oz BMI 28.5 Intake Visit Reasons: pre dm Allergies sertraline Adverse Reaction (Intermediate, Verified 12/26/24 11:27) memory issues Nutrition Presentation Details: pt presents for MNT for ifg and overweight Pt report choosing lean protein food, abstaining from meats has 3 meals/day, sensible meals at place of work following healthyp late method physical activity: none routinely BS Monitoring Most Recent Diabetes Results: Cholesterol 163 mg/dL (<200) 12/12/24 HDL Cholesterol 45 mg/dL (>40) 12/12/24 Triglycerides 97 mg/dL (<150) 12/12/24 Creatinine 0.85 mg/dL (0.5-1.4) 12/12/24 Blood Urea Nitrogen 13 mg/dL (9-16) 12/12/24 Sodium 141 mmol/L (135-145) 12/12/24 Potassium 4.8 mmol/L (3.3-5.1) 12/12/24 Chloride 107 mmol/L (96-108) 12/12/24 Carbon Dioxide 28 mmol/L (22-29) 12/12/24 Calcium 9.0 mg/dL (8.4-10.2) 12/12/24 AST 27 U/L (5-31) 12/12/24 ALT 29 U/L (0-31) 12/12/24 Total Protein 7.6 g/dL (6.5-8.0) 12/12/24 Albumin 4.1 g/dL (3.5-5.0) 12/12/24 REPLACED BY [facility] Medical History (Updated 12/26/24 @ 11:45 by Merlin Wilder MD) History of adenomatous polyp of colon Colon cancer screening Endocervical polyp History of pulmonary embolism Factor 5 Leiden mutation, heterozygous Surgical History Hx of colonoscopy Lumbar disc herniation Family History (Updated 12/26/24 @ 11:51 by Merlin Wilder MD) Father [place] cell carcinoma Stroke Mother Stroke Diabetes Myocardial infarction Brother Leukemia Paternal Aunt Leukemia Esophageal cancer Paternal Uncle Leukemia Paternal Grandfather Stroke Social History (Updated 12/26/24 @ 11:52 by Merlin Wilder MD) Household Members Other:: niece Housing: House Are you a primary critical care physician assistant to a significant other at home: No Do you presently have visiting nurse or other home services: No Alcohol intake: current Alcohol intake frequency: holidays/special occasions only Comment: 1-2 a month 2-3 drinks Patient Tobacco Use Status: Never used Tobacco e-Cigarette/Vaping Use: Never Used Second Hand Smoke Exposure: No service: No Current occupational status: employed 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 Current occupational exposures/hazards: No Cognitive needs: No Hearing needs: No Vision needs: No Assessment & Plan Assessment & Plan (1) Impaired fasting blood sugar: Code(s): R73.01 - Impaired fasting glucose Category: Medical Plan: Wt: 80 Kg ( 11/08 ), 02/07 Est kcal needs as per MSJ: 2000 (40% carb, 30% protein/fat) Est fluid needs as per 25-30 ml/d: 2400 Est prot per day as per 1 g/kg bw: 80 Recommend fiber intake : 8-10 g per day and gradually increase to 25-28 g per day for women and 35-38 g for men or as tolerated Recommend sodium intake per day : less than 2300 mg Educated patient on: ( R = reviewed V = verbalizes understanding N/R = needs review N/A = not applicable * Food sources of carbohydrate, adequate serving sizes and its role in various health conditions: R ,V * Differences between complex carbohydrates a simple carbohydrates, role of fiber in diet: R , V * Lean protein sources of foods: R ,V * Differences between types of fats and role in diet (mono on saturated fat fatty acids, saturated fatty acids, trans fats): R * Food sources of sodium in salt and healthy modifications for heart health in kidney health: R V R/V * Vitamins and minerals: R V N/R * Healthy plate method concept: R * Physical activity: Benefits a precaution: R * Hypoglycemia protocol (rule of 15): R V N/R * Dietary prevention of Hyperglycemia: R Patient Instructions: Engage in physical activity, goal 30 minutes , 3 times a week Coding Level of Care Code Nutr Indiv Subseq ([id number]) Diagnoses Impaired fasting blood sugar R73.01 Time Spent (min) 25
[2025-02-13 11:08] VITALS: BMI 28.5
--- OUTSIDE RECORDS SUMMARY | 2025-02-13 12:32 | XMS_ITS | Clinical Summary ---
Author Organization [facility] Address [address] [place] [address] Care Team Providers Care Pharmacy Tech Name Role Phone Unavailable Primary Care Provider Unavailabl e Social History Tobacco Use Types Packs/Day Years Used Date Smoking Tobacco: Never Assessed Comments Unknown Sex and Gender Information Value Date Recorded Sex Assigned at Not on file Legal Sex Female 10:59 AM EST Gender Identity Not on file Sexual Orientation [...] patient's age to complete this topic Meningococcal B Vacine Aged Out No lo nger eligible based on patient's age to complete [...]
== END 2025-02-13 11:36 | disposition home or self-care (01) ==
LOC: HO.ENCR 11:00
PROVIDERS: PCP Internal Medicine; Visit Provider Dietitian, Registered
DX: R73.01 Impaired fasting glucose (principal)

== ENCOUNTER → 2025-02-13 10:59 | Outpatient (BNVA) | payer OTHER, SELFPAY | PROVIDERS: PCP Internal Medicine; Visit Provider Dietitian, Registered | DX: E66.3 Overweight (principal); R73.01 Impaired fasting glucose; Z71.3 Dietary counseling and surveillance; Z68.28 Body mass index [BMI] 28.0-28.9, adult | CPT/HCPCS: 97803 ==

== ENCOUNTER 2025-04-25 10:07 | Outpatient (AMB) | payer OTHER, SELFPAY ==
[2025-04-25 10:13] VITALS: BMI 28.3
--- NOTE | 2025-04-25 10:13 | A.OFFVIS_ITS ---
VS Expanded 04/25/25 10:13 Height 5 ft 6 in Weight 175 lb 4.28 oz BMI 28.3 Intake Visit Reasons: impaired fasting glucose Allergies sertraline Adverse Reaction (Intermediate, Verified 12/26/24 11:27) memory issues Nutrition Presentation Details: Pt presents for MNT f/u for IFG Pt follows vegetarian diet >10 yrs Working on including physical activity , engaging in yard work/gardening and enjoys it keeping track of food intake - noticing lack of protein intake hydration : 48 oz fluid /day MVI -not taking vit D supp- yes as rx by BS Monitoring Most Recent Diabetes Results: Cholesterol, (<200) 163 mg/dL 12/12/24 HDL Cholesterol, (>40) 45 mg/dL 12/12/24 Triglycerides, (<150) 97 mg/dL 12/12/24 Creatinine, (0.5-1.4) 0.85 mg/dL 12/12/24 BUN, (9-16) 13 mg/dL 12/12/24 Sodium, (135-145) 141 mmol/L 12/12/24 Potassium, (3.3-5.1) 4.8 mmol/L 12/12/24 Chloride, (96-108) 107 mmol/L 12/12/24 Carbon Dioxide, (22-29) 28 mmol/L 12/12/24 Calcium, (8.4-10.2) 9.0 mg/dL 12/12/24 AST, (5-31) 27 U/L 12/12/24 ALT, (0-31) 29 U/L 12/12/24 Total Protein, (6.5-8.0) 7.6 g/dL 12/12/24 Albumin, (3.5-5.0) 4.1 g/dL 12/12/24 [facility] Medical History (Updated 12/26/24 @ 11:45 by Merlin Wilder MD) History of adenomatous polyp of colon Colon cancer screening Endocervical polyp History of pulmonary embolism Factor 5 Leiden mutation, heterozygous Surgical History Hx of colonoscopy Lumbar disc herniation Family History (Updated 12/26/24 @ 11:51 by Merlin Wilder MD) Father [place] cell carcinoma Stroke Mother Stroke Diabetes Myocardial infarction Brother Leukemia Paternal Aunt Leukemia Esophageal cancer Paternal Uncle Leukemia Paternal Grandfather Stroke Social History (Updated 12/26/24 @ 11:52 by Merlin Wilder MD) Household Members Other:: niece Housing: House Are you a primary memory care program resident to a significant other at home: No Do you presently have visiting nurse or other home services: No Alcohol intake: current Alcohol intake frequency: holidays/special occasions only Comment: 1-2 a month 2-3 drinks Patient Tobacco Use Status: Never used Tobacco e-Cigarette/Vaping Use: Never Used Second Hand Smoke Exposure: No service: No Current occupational status: employed 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 Current occupational exposures/hazards: No Cognitive needs: No Hearing needs: No Vision needs: No Assessment & Plan Assessment & Plan (1) Impaired fasting blood sugar: Code(s): R73.01 - Impaired fasting glucose Category: Medical Plan: Wt: 80 Kg ( 11/08 ), 02/07, 05/10 Est kcal needs as per MSJ: 1999 -740=3408 (40% carb, 30% protein/fat) Est fluid needs as per 25-30 ml/d: 2400 Est prot per day as per 1 g/kg bw: 80 Recommend fiber intake : 8-10 g per day and gradually increase to 25-28 g per day for women and 35-38 g for men or as tolerated Recommend sodium intake per day : less than 2300 mg Educated patient on: ( R = reviewed V = verbalizes understanding N/R = needs review N/A = not applicable * Food sources of carbohydrate, adequate serving sizes and its role in various health conditions: R ,V * Differences between complex carbohydrates a simple carbohydrates, role of fiber in diet: R , V * Lean protein sources of foods: R ,V * Differences between types of fats and role in diet (mono on saturated fat fatty acids, saturated fatty acids, trans fats): R * Food sources of sodium in salt and healthy modifications for heart health in kidney health: R V * Vitamins and minerals: R * Healthy plate method concept: R * Physical activity: Benefits a precaution: R * Hypoglycemia protocol (rule of 15): R V N/R * Dietary prevention of Hyperglycemia: R Patient Instructions: Engage in physical activity 30-40 minutes , 3x/wk as a routine take a MVI Coding Level of Care Code Nutr Indiv Subseq ([id number]) Diagnoses Impaired fasting blood sugar R73.01 Time Spent (min) 20
--- OUTSIDE RECORDS SUMMARY | 2025-04-25 11:38 | XMS_ITS | Clinical Summary ---
Author Organization [facility] Address [address] [place] [address] Care Team Providers Care Brands Editor Name Role Phone Unavailable Primary Care Provider [...] 1996 COVID-19 Vaccine (2023-2 5 season) 2024 Colorectal Cancer Screening: Colonoscopy 08/25/2024 Depression Screening 08/25/2024 HIV Screening 08/25/2024 Hepatitis C Screening 08/25/2024 Social Influencers of Health Screening 08/25/2024 Influenza Vaccine (Season Ended) 2025 HIB Vaccines Aged Out No longer eligi [...] age to complete this topic Meningococcal B Vaccine Aged Out No l onger eligible based on patient's age to complete [...]
== END 2025-04-25 10:33 | disposition home or self-care (01) ==
LOC: HO.ENCR 10:08
PROVIDERS: PCP Internal Medicine; Visit Provider Dietitian, Registered
DX: R73.01 Impaired fasting glucose (principal)

== ENCOUNTER → 2025-04-25 10:07 | Outpatient (BNVA) | payer OTHER, SELFPAY | PROVIDERS: PCP Internal Medicine; Visit Provider Dietitian, Registered | DX: Z71.3 Dietary counseling and surveillance (principal); R73.01 Impaired fasting glucose | CPT/HCPCS: 97803 ==

== ENCOUNTER 2025-07-04 08:58 | Outpatient (AMB) | payer OTHER, SELFPAY ==
--- NOTE | 2025-07-04 08:53 | A.OFFVIS_ITS ---
Vital Signs 07/04/25 09:10 Height 5 ft 6 in Weight 177 lb 8 oz BMI 28.6 BP 110/62 Blood Pressure Location Lt brachial Position Sitting Pulse 65 Pulse Source Pulse Oximeter Pulse Oximetry (%) 98 Oxygen Delivery Method Room Air Intake Visit Reasons: copd: 6 month f/u Allergies sertraline Adverse Reaction (Intermediate, Verified 07/04/25 09:12) memory issues HPI HPI copd: 6 month f/u: Details: Xochitl is a pleasant 49 year old, never smoker, with underlying asthma. She reports overall good control of respiratory symptoms with Breo, requiring albuterol infrequently. At this time, she denies any respiratory symptoms. She denies any visits to Urgent Care or hospitalizations related to respiratory distress since last visit. Today she presents for routine follow-up. [facility] Medical History (Updated 12/26/24 @ 11:45 by Merlin Wilder MD) History of adenomatous polyp of colon Colon cancer screening Endocervical polyp History of pulmonary embolism Factor 5 Leiden mutation, heterozygous Surgical History Hx of colonoscopy Lumbar disc herniation Family History (Updated 12/26/24 @ 11:51 by Merlin Wilder MD) Father Kamran cell carcinoma Stroke Mother Stroke Diabetes Myocardial infarction Brother Leukemia Paternal Aunt Leukemia Esophageal cancer Paternal Uncle Leukemia Paternal Grandfather Stroke Social History Household Members Other:: niece Housing: House Are you a primary care administrative tech to a significant other at home: No Do you presently have visiting nurse or other home services: No Alcohol intake: current Alcohol intake frequency: holidays/special occasions only Comment: 1-2 a month 2-3 drinks Patient Tobacco Use Status: Never used Tobacco e-Cigarette/Vaping Use: Never Used Second Hand Smoke Exposure: No service: No Current occupational status: employed 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 Current occupational exposures/hazards: No Cognitive needs: No Hearing needs: No Vision needs: No Review of Systems Const Denies chills, Denies excessive sweating, Denies fever(s), Denies headache(s) and Denies night sweats Eyes Denies dry eyes, Denies irritation and Denies itchy eyes ENT Reports Normal hearing present, Denies headache(s), Denies nasal congestion, Denies nasal discharge, Denies post nasal drip and Denies sore throat Card Denies chest pain, Denies chest pain at rest, Denies chest pain with activity, Denies claudication, Denies leg edema, Denies dyspnea, Denies dyspnea on exertion, Denies orthopnea and Denies paroxysmal nocturnal dyspnea Resp Denies chest congestion, Denies cough, Denies excessive phlegm production, Denies pain on inspiration, Denies pain with cough, Denies dyspnea, Denies dyspnea on exertion, Denies stridor and Denies wheezing Musc Denies myalgias Neuro Reports Normal hearing present and Denies headache(s) Endo Denies excessive sweating Te/Lymph Denies lymphadenopathy Aller/Immun Denies itchy eyes, Denies seasonal rhinorrhea and Denies wheezing Physical Exam Vital Signs: Last Vital Signs Pulse 65 07/04/25 09:10 BP 110/62 07/04/25 09:10 Pulse Ox 98 07/04/25 09:10 Oxygen Delivery Method Room Air 07/04/25 09:10 BMI result Body Mass Index 28.6 Const General: cooperative, healthy appearing, comfortable, no acute distress, well developed and alert Orientation/consciousness: patient oriented x3 Limitations: no limitations HEENT Head: Yes normal to inspection, Yes normocephalic and Yes atraumatic Ears: hearing grossly normal bilaterally and external ears normal Eyes General: appearance normal, both eyes and all related structures Eyelids: Yes eyelids normal Sclerae: sclerae normal EOM: EOMs intact bilaterally Neck Neck: Yes normal visual inspection and Yes no lymphadenopathy Lymphatic: no lymphadenopathy noted Chest Chest palpation & inspection: normal inspection of the chest Resp Effort & Inspection: normal respiratory effort, able to speak in complete sentences, no audible wheezes, no cough, no stridor, not tachypneic, no tripod positioning and no use of accessory muscles Auscultation: clear to auscultation bilaterally Cardio Jugular venous distension: no JVD Rate: regular rate Rhythm: regular rhythm Skin Other: warm, dry General skin exam: no rashes or lesions noted Neuro General: patient oriented x3 Cranial nerves: Yes Normal hearing present Cognition (Neuro): normal cognition Gait exam (Neuro): Normal gait present Extrem General: Yes normal to inspection, Yes capillary refill normal, Yes no clubbing, cyanosis or edema and Yes no pedal edema Psych Appearance: grossly normal and well kempt Speech and movement: Normal speech and movement present and Clear speech present Affect: normal affect Attitude: cooperative Thought process: Normal thought process present Thought content: Normal thought content present Insight: Good insight present (Psych) Judgement: Good judgement present (Psych) Assessment & Plan Assessment & Plan (1) Asthma: Code(s): J45.909 - Unspecified asthma, uncomplicated Category: Medical Qualifiers: Asthma complication type: uncomplicated Asthma persistence: intermittent Asthma severity: mild Qualified Code(s): J45.20 - Mild intermittent asthma, uncomplicated Plan Kaushik reports excellent control of respiratory symptoms using Breo and albuterol MDI, advised to continue. Will refill. She is aware to call if symptoms change. All questions were answered and patient is in agreement of plan. Will follow up in 6 months or sooner if needed. Medications: Refilled fluticasone furoate-vilanterol 100-25 mcg/dose (Breo Ellipta) 1 inh inhalation DAILY 60 ea 6RF albuterol sulfate 90 mcg/actuation (Ventolin HFA) 2 puffs inhalation Q4-6H PRN 2 ea 1RF shortness of breath or wheezing J40 - Bronchitis, not specified as acute or chronic Coding Level of Care Code Est Pt Level 3 (93734) Diagnoses Mild intermittent asthma without complication J45.20 Asthma complication type: uncomplicated Asthma persistence: intermittent Asthma severity: mild
[2025-07-04 09:10] VITALS: BP 110/62; PULSE 65; O2SAT 98; BMI 28.6
--- OUTSIDE RECORDS SUMMARY | 2025-07-04 09:51 | XMS_ITS | Clinical Summary ---
Author Organization [facility] Address [address] [place] [id number] Phone Care Team Providers Care Heel Former Name Role Phone Marysol Garcia MD Unavailable [phone] Merlin Wilder MD Primary Care Provider [phone] Allergies No known active allergies Medications aspirin 81 mg chewable tabletIndication s:Other pulmonary embolism without acute cor pulmonale, unspecified chronicity Active multivitamin with minerals Take by mouth. A ctive coenzyme Q10 100 mg capsule Take 100 mg by mouth daily. Active prasterone, dhea, 25 mg Cap Take by mouth. Active BREO ELLIPTA 100-25 mcg/dose inhaler Inhale 1 puff into the lungs daily. Active progesterone (PROMETRIUM) 200 mg capsuleIndicatio ns:Irregular menstrual cycle Take 1 capsule (200 mg total) by mouth nightly at bedtime. Can also insert vaginally as an alternative 12 capsule Active Additional Information Patient not taking.Reported on 05/20/2024 Active Problems Problem Noted Date Diagnosed Date Irregular menstrual cycle 03/08/2024 Assessment & Plan (03/08/2024 1:09 PM EDT): Negative test, last episode of bleeding over 6 weeks ago. Recommended 12 days of progesterone as a one-time regimen to induce a withdrawal bleed, recommend she continue to track the cycles and return if they are becoming more irregular than they have been. Perimenopause 03/08/2024 Overview (03/08/2024): Age 48, some relatively mild irregularity and cycle length, some hot flashes Assessment & Plan (03/08/2024 1:06 PM EDT): Recommend checking TSH to rule out other causes. This is mostly very difficult for her, as it represents the closing of the door in terms of ever conceiving. She does not want to be right now, but has been holding out hope that conception would happen after the infertility treatments in her early 40s. Female infertility 10/16/2017 Overview (12/09/2019): Normal HSG 10/16/2017 IUIs #5 done with [facility] Assessment & Plan (02/15/2021 9:27 AM EDT): Considering with [facility] currently embryo adoption Assessment & Plan (12/09/2019 10:34 AM EST): She is open to adoption and donor embryos Assessment & Plan (10/16/2017 2:34 PM EST): HSG performed and normal appearing cavity and bilateral fill and spill. Pulmonary embolism 10/05/2017 Overview (02/15/2021): 2009 after back surgery Resolved Problems Problem Noted Date Diagnosed Date Resolved Date Brunilda vaginitis 10/01/2018 03/08/2024 Immunizations Immunization Administration Dates Next Due COVID-19 (Pre-09/07) Moderna Vaccine, mRNA, PF 0 01/07/2021,12/10/2020 Influenza Quadrivalent Preservative Free IM 11/17 Influenza Quadrivalent w/ Preservative IM 2018 Tdap 04/18/2016 Family History Medical History Relation Comments Leukemia Brother Skin cancer Father Stroke Father Diabetes Mother Stroke Mother Brain cancer Paternal Aunt Esophageal cancer Paternal Aunt Relation Status Comments Brother Father Mother Paternal Aunt Social History Tobacco Use Types Packs/Day Years Used Date Smoking Tobacco: Never Smokeless Tobacco: Never Tobacco Cessation:Counseling Given: Not Answered Alcohol Use Standard Drinks/Week Comments Yes 0 (1 standard drink = 0.6 oz pur e alcohol) rare Education Answer Date Recorded Are you interested in more education? Not on barbara e 03/13/2023 Are you concerned about learning? Not on file 03/13/2023 No 03/13/2023 No 03/13/2023 Digital Access Answer Date Recorded No 04/10/2023 No 04/10/2023 Reliable internet access at home? Not on file 04/10/2023 Device with a working camera? 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 Not on file Not on file Not on file Last Filed Vital Signs Vital Sign Reading Time Taken Comments Blood Pressure 110/76 08/16/2024 10:05 AM EDT Pulse - - Temperature - - Respiratory Rate - - Oxygen Saturation - - Inhaled Oxygen Concentration - - Weight 78.9 kg (174 lb) 08/16/2024 10:05 AM EDT Height 167.6 cm (5' 6 ) 08/16/2024 10:05 AM EDT Body Mass Index 28.08 08/16/2024 10:05 AM EDT Plan of Treatment Health Maintenance Due Date Last Done Comments LIPID PANEL 1975 DEPRESSION SCREENING 1987 HEPATITIS C SCREENING 1993 HIV ONE-TIME SCREENING (18-65 YEARS) 1993 SCREENING FOR DIABETES 2010 MAMMOGRAM 2015 COLOGUARD 2020 COLONOSCOPY 2020 COLORECTAL CANCER SCREENING 2020 FIT TEST 2020 FOBT 2020 SIGMOIDOSCOPY 2020 VIRTUAL COLONOSCOPY 2020 COVID-19 VACCINE ( season) 2024 04/30/2022, 01/07/2021, 12/10/2020 Adult Td,Tdap Booster 04/18/2026 04/18/2016 PAP SMEAR 08/16/2027 08/16/2024, 11/17, 12/09/2019, Additional history exists SMOKING STATUS SCREENING (Once After 26 Yrs) Completed 08/16/2024 HEPATITIS A VACCINES Aged Out No long er eligible based on patient's age to complete this topic HIB VACCINES Aged Out No longer eligi ble based on patient's age to complete this topic MENINGOCOCCAL VACCINES (ACWY) Aged Out No longer eligible based on patient's age to complete this topic MENINGOCOCCAL VACCINES (B) Aged Out N o longer eligible based on patient's age to complete this topic PNEUMOCOCCAL VACCINES (0-49 years) Aged Out No longer eligible based on patient's age to complete this topic Medical Devices Not on file Procedures Procedure Name Priority Date/Time Associated Diagnosis Comments PAP TEST Routine 08/16/2024 12:00 AM EDT from Last 3 Months or Most Recently Relevant to Health Maintenance Results * Pap Test (08/16/2024 12:00 AM EDT) 08/16/2024 08/17/2024 11: 21 AM EDT Narrative SEE NARRATIVE - 08/19/2024 3:40 [place] [address] Product Marketing Manager: Caleb Jeffrey MD ENGINE MAINTENANCE MECHANIC Cytology Report FINAL DIAGNOSIS A. PAP SMEAR (THIN PREP) CE: SPECIMEN ADEQUACY: Satisfactory for evaluation; transformation zone present. INTERPRETATION: NEGATIVE FOR INTRAEPITHELIAL LESION OR MALIGNANCY. Coccobacilli consistent with shift in chanelle This specimen was analyzed by the automated ThinPrep Imaging System ([employer] and manually rescreened by a project management professional and/or pathologist. Electronically Signed Out By: MD Kemi Castillo CT(ASCP) By his/her signature above, the pathologist listed as making the Final Diagnosis certifies that he/she has personally reviewed this case and confirmed or corrected the diagnosis. The Pap test is a screening test primarily for squamous cancers and precursors and has associated false-negative and false-positive results. New technologies such as liquid-based preparations may decrease but will not eliminate all false-negative results. Regular sampling and follow-up of unexplained clinical signs and symptoms are recommended to minimize false negative results. PROCEDURES/ADDENDA HPV Testing (Requested) Ordered Date: 08/17/2024 A. PAP SMEAR (THIN PREP) CE: Human Papilloma Virus Test NEGATIVE for high-risk Human Papilloma Virus types 16, 18, 45 and the Other high risk probe set (Includes 31, 33, 35, 39, 51, 52, 56, 58, 59, 66, 68) Note: Testing performed by [employer] Onclarity HR-HPV analysis. Clinical correlation is advised. This HPV test was performed at [facility], [address] [place] [address]. This test has been FDA approved for both SurePath and ThinPrep cervical cytology specimens. The accuracy and precision of this test for all other specimen sources has been verified in the Cytopathology Laboratory of the [facility] and has not been cleared or approved by the U.S. Food and Drug Administration. Clinical correlation is advised. CLINICAL HISTORY Date of Last Menstrual Period: 07-22-2024 Other Clinical Conditions: Screening Pap SPECIMEN SOURCE A: PAP SMEAR (THIN PREP) CE Patient Name: HILARIO XOCHITL : 1975 (Age: 48) Sex: F Institution: [facility] Location: [facility] Date of Collection: 08/16/2024 Date of Reported: 08/19/2024 15:40 Results to: Marysol Garcia MD Marysol Garcia MD CYTOLOGY ORDERABLES Final Result SEE NARRATIVE from Last 3 Months or Most Recently Relevant to Health Maintenance Insurance [facility] [address] [address] [place] [address] [place] [address] [place] [address] HMO Care Teams Heel Former Relationship Specialty Start Date End Date Po, Merlin Pizarro MD [address] [place] [address] [address] [place] [address] PCP - General Internal Medicine 10/05/17 Marysol Garcia MD [address], [address] [place] [address] [email or web address] Historical LMR Provider 09/02/17 Additional Source Comments The information contained in this document represents components of the legal health record. It is not the complete legal health record.[facility]
--- OUTSIDE RECORDS SUMMARY | 2025-07-04 09:51 | XMS_ITS | Clinical Summary ---
Author Organization [facility] Address [address] [place] [address] Care Team Providers Care Harvest Crew Supervisor Name Role Phone Unavailable Primary Care Provider [...] season) 2024 Colorectal Cancer Screening: Colonoscopy 08/25/2024 HIV Screening 08/25/2024 Hepatitis C Screening 08/25/2024 Social Influencers of Health Screening 08/25/2024 Depression Screening 11/16/2024 Influenza Vaccine (#1) 2025 HIB Vaccines Aged Out No longer [...] 5 Years) and At-Risk Patients (6 to 49 Years) Aged Out No longer eligible b ased on patient's age to complete this topic RSV Immunization Patients Un neris 20 months Aged Out No longer eligible b ased on patient's age to complete this topic Varicella Vaccines Aged Out No longer eligible based on patient's age to complete this topic
== END 2025-07-04 09:22 | disposition home or self-care (01) ==
LOC: HO.HPSW 08:59
PROVIDERS: PCP Internal Medicine; Visit Provider Nurse Practitioner Family
DX: J45.20 Mild intermittent asthma, uncomplicated (principal)
CPT/HCPCS: 99213

== ENCOUNTER 2025-09-19 08:54 | Outpatient (REF) | payer OTHER, SELFPAY ==
[2025-09-19 09:08] LABS: MANUAL DIFF FLAG NO
[2025-09-19 09:51] LABS: Hematocrit 43.5 % (37.0-47.0); Hemoglobin 13.9 g/dl (12.0-16.0); Imm Gran Abs Auto 0.04 X10*3/uL (0.00-0.03); Imm Gran Pct Auto 0.5 % (0.0-0.4); Lymphocytes Absolute Auto 2.4 X10*3/uL (1.2-4.9); Mean Corpuscular HGB Conc 32.0 g/dl (31.0-35.0); Mean Corpuscular Hemoglobin 28.5 pg (27.0-33.0); Mean Corpuscular Volume 89.3 fL (80.0-98.0); NRBC Abs Auto 0.000 X10*3/uL (0.0-0.012); NRBC Pct Auto 0.0 /100WBC (0.0-0.2); Platelet Count 232 X10*3/uL (160-400); Red Blood Count 4.87 X10*6/uL (4.20-5.50); White Blood Count 8.4 X10*3/uL (4.8-10.8)
[2025-09-19 10:44] LABS: Alanine Aminotransferase 25 U/L (0-31); Albumin Level 4.4 g/dL (3.5-5.0); Alkaline Phosphatase 67 U/L (39-117); Anion Gap 12 (12-20); Aspartate Amino Transferase 22 U/L (5-31); Blood Urea Nitrogen 14 mg/dL (9-16); Calcium 9.0 mg/dL (8.4-10.2); Carbon Dioxide 27 mmol/L (22-29); Chloride 105 mmol/L (96-108); Estimated Glomerular Filt Rate > 60; Potassium 4.8 mmol/L (3.3-5.1); Sodium 139 mmol/L (135-145); Total Protein 7.4 g/dL (6.5-8.0)
== END 2025-09-19 08:55 | disposition home or self-care (01) ==
LOC: HO.LAB 08:54
PROVIDERS: PCP Internal Medicine; Visit Provider Internal Medicine
DX: R73.01 Impaired fasting glucose (principal)
CPT/HCPCS: 36415; 80053; 83036; 85025

== ENCOUNTER 2025-10-03 15:27 | Outpatient (AMB) | payer OTHER, SELFPAY ==
--- NOTE | 2025-10-03 15:32 | A.OFFPC_ITS ---
Vital Signs 10/03/25 15:33 Height 5 ft 6 in Weight 173 lb 2 oz BMI 27.9 BP 144/82 H Blood Pressure Location Lt brachial Position Sitting Pulse 59 Pulse Source Pulse Oximeter Temp 97.1 F Temp Source Temporal Artery Scan Pulse Oximetry (%) 100 Oxygen Delivery Method Room Air Intake Visit Reasons: IGT - see comments Allergies sertraline Adverse Reaction (Intermediate, Verified 10/03/25 15:38) memory issues Medication List - Last Reconciled 10/03/25 by Merlin Wilder MD albuterol sulfate 90 mcg/actuation (Ventolin HFA) 2 puffs inhalation Q4-6H PRN aspirin (Adult Aspirin Regimen) 81 mg PO DAILY blood pressure monitor (Blood Pressure Kit) As directed cholecalciferol (vitamin D3) 25 mcg PO DAILY fluticasone furoate-vilanterol 100-25 mcg/dose (Breo Ellipta) 1 inh inhalation DAILY lidocaine 5% 1 patch topical DAILY Tobacco use date assessed: 10/03/25 Dental Screening Dental Screen Date: 10/03/25 Did you have a dental visit in the last 12 months?: Yes Did you have a dental problem in the last 6 months where you did not have access to dental care?: No Was dental information given to patient?: Patient has dentist HPI HPI Comments History of Present Illness Details History of Present Illness The patient is a 49-year-old overweight female presenting for a follow-up visit. Her last physical exam was in December. She has a history of generalized anxiety disorder, depression, and Factor V Leiden mutation with phlebitis. For asthma/COPD, the patient was seen by a painter spray in June 2025 and is prescribed Breo and albuterol. She reports compliance with rinsing her mouth after using her inhaler. A CT urogram in December 2024, performed for hydronephrosis, revealed a left kidney parapelvic cyst causing compression of the left renal pelvis and caliectasis without signs of obstruction. The same scan incidentally found a 5.5 cm left ovarian cyst. The patient has a vague recollection of having a transvaginal ultrasound in the past but there is no report on file. Regarding her metabolic health, her hemoglobin A1c has risen to 5.8% from 5.7% in November, and her fasting glucose is now 103 mg/dL, previously 101 mg/dL. Her last cholesterol test in November was 99 mg/dL. The patient has seen a president & founder for weight management. The patient is experiencing menopausal symptoms, specifically sporadic hot flashes described as her cheeks becoming warm. For health maintenance, her last colon test was in January 2023, and a mammogram was done in April 2025. Health Maintenance The patient received her flu shot during the visit. A follow-up appointment is scheduled in three months, which will also serve as her annual physical exam. Social History - Exercise: The patient has joined a gym but reports difficulty with consistent attendance. - She owns an [employer] machine at home . - Nutrition: Reports eating oatmeal for breakfast, salads for lunch, and drinking a lot of water. - She cooks her own meals and denies add ing extra salt. - Stressors: Reports significant anxiety and worry regarding her dog, who has recently lost weight. - Pets: Owns a dog named Jalil. Results - Labs: - Hemoglobin A1c: 5.8%. - Fasting blood sugar: 103 mg/dL. - CBC, electrolytes, renal function, jacob er function, and calcium were all noted to be normal or good based on results from September 2025 and currently. - Cholesterol was 99 mg/dL in November. - Imaging: - CT Urogram (December 2024): Showed a l eft kidney parapelvic cyst causing compression of the left renal pelvis and caliectasis with no obstruction. - An incidental 5.5 cm left ovarian cyst was also noted. [facility] Medical History History of adenomatous polyp of colon Colon cancer screening Endocervical polyp History of pulmonary embolism Factor 5 Leiden mutation, heterozygous Surgical History Hx of colonoscopy Lumbar disc herniation Family History Father [place] cell carcinoma Stroke Mother Stroke Diabetes Myocardial infarction Brother Leukemia Paternal Aunt Leukemia Esophageal cancer Paternal Uncle Leukemia Paternal Grandfather Stroke Social History Household Members Other:: niece Housing: House Are you a primary healthcare facility administrator to a significant other at home: No Do you presently have visiting nurse or other home services: No Alcohol intake: current Alcohol intake frequency: holidays/special occasions only Comment: 1-2 a month 2-3 drinks Patient Tobacco Use Status: Never used Tobacco e-Cigarette/Vaping Use: Never Used Second Hand Smoke Exposure: No service: No Current occupational status: employed 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 1. Little interest or pleasure in doing things: several days 2. Feeling down, depressed, or hopeless: several days 3. Trouble falling or staying asleep, or sleeping too much: not at all 4. Feeling tired or having little energy: not at all 5. Poor appetite or overeating: not at all 6. Feeling bad about yourself - or that you are a failure or have let yourself or your family down: not at all 7. Trouble concentrating on things, such as reading the newspaper or watching television: not at all 8. Moving or speaking so slowly that other people could have noticed. Or the opposite - being so fidgety or restless that you have been moving around a lot more than usual: not at all 9. Thoughts that you would be better off or of hurting yourself in some way: not at all Total score: 2 Source: Developed by Drs. Jimi Schwartz, Rebecca Kingsley, Austin foote nd colleagues, with an educational paige from [employer]. Thrive Questionnaire Date Thrive assessed: 12/26/24 I am a: Patient What is your living situation today?: I have a steady place to live Within the past 12 months, did the food you bought not last and you didn't have the money to get more?: Never true Within the past 12 months, did you worry whether your food would run out before you got money to buy more?: Never true Do you have trouble paying for medicines?: No Do you have trouble getting transportation to medical appointments?: No Do you have trouble paying your heating and electricity bill?: No Do you have trouble taking care of your child, family member or friend?: No Do you have trouble with day-to-day activities such as bathing, preparing meals, shopping, managing finances, etc.?: No Are you currently unemployed and looking for a job?: No Are you interested in more education?: Yes Please select the resources that you would like help with: None Currently or been in a relationship where the following occur: No concerns reported THRIVE Score: 0 AUDIT C Alcohol Use Questionnaire (AUDIT-C) 1. How often do you have a drink containing alcohol?: Monthly or less 2. How many drinks containing alcohol do you have on a typical day when you are drinking?: 1 or 2 3. How often do you have six or more drinks on one occasion?: Never Total Score: 1 GABY-7 AMB Questionnaire GABY-7 Date GABY - 7 assessed: 12/26/24 Feeling nervous, anxious, or on edge: 1 = Several days Not being able to stop or control worryin = Not at all Worrying too much about different things: 1 = Several days Trouble relaxin = Not at all Being so restless that it is hard to sit still: 0 = Not at all Becoming easily annoyed or irritable: 0 = Not at all Feeling afraid as if something awful might happen: 0 = Not at all Total GABY-7 score (0-4 normal; 5-9 mild; 10-14 moderate; 15-21 severe): 2 Source: Developed by Drs. Jimi Schwartz, Rebecca Kingsley, Austin Mata and colleagues, with an educational paige from [employer]. Review of Systems Narrative Review of Systems - General: Denies bloating. - Endocrine: Reports sporadic hot flashes, described as cheeks getting warm. - Psychiatric: Reports experiencing anxiety, particularly related to worry about her pet dog. Physical exam (Primary Care) Vital Signs: Last Vital Signs Temp 97.1 F 10/03/25 15:33 Pulse 59 10/03/25 15:33 BP 144/82 H 10/03/25 15:33 Pulse Ox 100 10/03/25 15:33 Oxygen Delivery Method Room Air 10/03/25 15:33 BMI result Body Mass Index 27.9 Tobacco/Smoking Status: Tobacco use Status Tobacco use date assessed 10/03/25 10/03/25 15:39 Patient Tobacco Use Status Never used Tobacco 10/03/25 15:39 Tobacco use type 12/26/24 12:11 e-Cigarette/Vaping Use Never Used 10/03/25 15:39 PHQ-9: PHQ-9 Score PHQ-9: Total score 2 10/03/25 15:47 Thrive Assessment: Date of Thrive Assessment Date Thrive assessed 12/26/24 10/03/25 15:39 Currently or been in a relationship where the following occur: No concerns reported Narrative Physical Exam - Vitals: Blood pressure was noted to be elevated during the office visit. Const General: alert; No acute distress Eyes Conjunctivae: conjunctivae normal Resp Auscultation: clear to auscultation bilaterally Cardio Rate: regular rate Rhythm: regular rhythm GI Inspection: Yes normal to inspection Extrem General: Yes normal to inspection and No edema Office Procedures Flu Questionnaire Does the patient have a severe egg allergy?: No Does the patient have severe life threatening allergies?: No Does the patient have a fever or illness today?: No Has the patient ever had Guillain-Vienna Syndrome?: No Has the patient ever had any past reaction to a flu shot?: No Immunizations Fluarix [id number] (PF) 45 mcg (15 mcg x 3)/0.5 mL IM syringe Performing Provider: Merlin Wilder MD Performing Location: [facility] [place] [facility] Administered by: Anna Oden CMA on 10/03/25 15:42 Dose Route Admin Location Dispensed Lot Number Expiration Date [facility] 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 0.5 mL IM Left Deltoid 0.5 mL [id number] 05/15/26 [id number] [employer] VIS Given Date VIS Provided VIS Publication Date 10/03/25 Single Vaccine 24 Eligibility Eligibility Date Funding Source Not [facility] Eligible 10/03/25 Private Coding Level of Care Code Est Pt Level 4 (57448) Complex EM visit Add On G2211 Diagnoses Blood pressure elevated without history of HTN R03.0 Factor 5 Leiden mutation, heterozygous D68.51 Impaired fasting blood sugar R73.01 Overweight (BMI 25.0-29.9) E66.3 Hydronephrosis, left N13.30 Adnexal cyst N94.9 Mild intermittent asthma without complication J45.20 Asthma complication type: uncomplicated Asthma persistence: intermittent Asthma severity: mild Generalized anxiety disorder F41.1 Assessment & Plan Assessment & Plan (1) Blood pressure elevated without history of HTN: Code(s): R03.0 - Elevated blood-pressure reading, without diagnosis of hypertension Category: Medical Plan: Continue to monitor blood pressure. Low-salt diet (2) Factor 5 Leiden mutation, heterozygous: Comment: December 2009 Code(s): D68.51 - Activated protein C resistance Category: Medical Plan: Patient is on aspirin (3) Impaired fasting blood sugar: Code(s): R73.01 - Impaired fasting glucose Category: Medical Plan: Decrease the amount of carbohydrate intake, pasta, bread, rice and potatoes are all sugar and that is aside from all the sweet stuff, remember that fruits are good but they are Sweet also. Noted hemoglobin A1c 5.8 (4) Overweight (BMI 25.0-29.9): Code(s): E66.3 - Overweight Category: Medical Plan: Diet and exercise (5) Hydronephrosis, left: Comment: December 2024 5.5 cm left ovarian cyst and cervical hypodensity/cyst consider nonurgent ultrasound for characterization. 2. Left kidney intrarenal parapelvic cyst with compression of the left renal pelvis and caliectasis. No signs of ureteral obstruction. Code(s): N13.30 - Unspecified hydronephrosis Category: Medical Plan: Patient was seen by Urology and had the CT urogram done. Negative (6) Adnexal cyst: Comment: Left incidental finding 06/2024 Code(s): N94.9 - Unspecified condition associated with female genital organs and menstrual cycle Category: Medical Plan: Discussed about the results and advised on ultrasound of the pelvis (7) Asthma: Code(s): J45.909 - Unspecified asthma, uncomplicated Category: Medical Qualifiers: Asthma complication type: uncomplicated Asthma persistence: intermittent Asthma severity: mild Qualified Code(s): J45.20 - Mild intermittent asthma, uncomplicated Plan: Patient follows up with Pulmonary has been placed on Breo and short-acting albuterol inhaler (8) Generalized anxiety disorder: Code(s): F41.1 - Generalized anxiety disorder Category: Medical Plan: Stable Plan Plan Patient was informed and verbally consented to the use of an ambient scribe for clinic note documentation during this visit. 1. Left Ovarian Cyst A 5.5 cm left ovarian cyst was incidentally found on a CT urogram in December 2024. A follow-up pelvic and transvaginal ultrasound will be ordered to further evaluate the cyst. The radiology department will contact the patient to schedule this. 2. Elevated Blood Pressure The patient's blood pressure was elevated in the office. A prescription for a blood pressure monitor was provided for home monitoring. The patient was instructed to check her blood pressure 2-3 times per week after a 3-5 minute rest period and to log the readings to review at the next visit. A low-salt diet was also recommended. 3. Prediabetes The patient's hemoglobin A1c has increased from 5.7% to 5.8%, and her recent fasting glucose was 103 mg/dL. Continued diet and exercise were recommended to manage blood sugar levels. The patient continues to follow up with a nutritionis t. 4. Overweight The patient is overweight and inquired about management options. A discussion was had regarding weight loss injections, including their mechanism, benefits, risks, cost, and availability, but the patient prefers a natural approach. Encouraged continued efforts with diet and increased physical activity. 5. Asthma/Copd The patient's respiratory condition is stable, and she is followed by a painter spray. She will continue using her Breo and albuterol inhalers as prescribed and was reminded to rinse her mouth after use. Discussion Notes I discussed the incidental finding of a 5.5 cm left ovarian cyst from her previous CT scan. I explained the need for a follow-up pelvic and transvaginal ultrasound, which I will order, and advised her that the radiology department will contact her for scheduling. I addressed her elevated blood pressure reading in the office and the importance of monitoring it at home to get a more accurate assessment. I provided a prescription for a blood pressure monitor and instructed her on how and when to check it, emphasizing that I would interpret the results. We also discussed the benefit of a low-salt diet. We reviewed her recent lab work, noting the upward trend in her hemoglobin A1c, and I reiterated the importance of diet and exercise. In response to her questions about weight management, I had an extensive discussion about GLP-1 agonist medications. I explained their mechanism of action, effectiveness, potential cardiovascular benefits, and contraindications (history of thyroid cancer). I also covered the significant barriers, including cost, insurance coverage, availability, and the lack of long-term safety data. The patient agreed that she prefers to focus on natural methods like diet and exercise at this time. I explained that her sporadic hot flashes are a normal part of perimenopause and that they will likely become more frequent over time. I scheduled her for a follow-up in three months, which will be combined with her annual physical. Patient Instructions - An order has been placed for a pelvic and transvaginal ultrasound to check on your ovarian cyst. - The radiology department will call you to schedule this appointment. - You have been given a prescription for a blood pressure monitor. - Please take this to a medical supply store to have it filled. - Check your blood pressure at home 2-3 times per week. - Before checking, sit down and rest for 3 to 5 minutes. - Keep a written log of your blood pressure readings and bring it to your next appointment. - Continue to focus on a healthy lifestyle, including regular physical activity and a balanced diet with low salt intake. - Continue taking your asthma medications (Breo and albuterol) as prescribed, and remember to rinse your mouth after use. - You received your flu shot today. - Follow up in the office in 3 months for your next visit, which will also be your annual physical. Orders: Orders Influenza [id number] Immunization Today Z23 - Encounter for immunization US pelvic and transvaginal Today N94.9 - Unspecified condition associated with female genital organs and menstrual cycle Medications: New blood pressure monitor (Blood Pressure Kit) As directed 1 ea 0RF I10 - Essential (primary) hypertension, R03.0 - Elevated blood-pressure reading, without diagnosis of hypertension
[2025-10-03 15:33] VITALS: BP 144/82; PULSE 59; TEMP 36.2; O2SAT 100; BMI 27.9
== END 2025-10-03 16:14 | disposition home or self-care (01) ==
LOC: HO.HMCH 15:28
PROVIDERS: PCP Internal Medicine; Visit Provider Internal Medicine
DX: R03.0 Elevated blood-pressure reading, without diagnosis of hypertension (principal); D68.51 Activated protein C resistance; R73.01 Impaired fasting glucose; E66.3 Overweight; N13.30 Unspecified hydronephrosis; N94.9 Unspecified condition associated with female genital organs and menstrual cycle; J45.20 Mild intermittent asthma, uncomplicated; F41.1 Generalized anxiety disorder; Z23 Encounter for immunization

== ENCOUNTER → 2025-10-03 15:27 | Outpatient (BNVA) | payer OTHER, SELFPAY | PROVIDERS: PCP Internal Medicine; Visit Provider Internal Medicine | DX: Z23 Encounter for immunization (principal); R03.0 Elevated blood-pressure reading, without diagnosis of hypertension; D68.51 Activated protein C resistance; R73.01 Impaired fasting glucose; E66.3 Overweight; N13.30 Unspecified hydronephrosis; N94.9 Unspecified condition associated with female genital organs and menstrual cycle; J45.20 Mild intermittent asthma, uncomplicated; F41.1 Generalized anxiety disorder | CPT/HCPCS: 90471; 90656 ==

== ENCOUNTER 2025-10-16 10:02 | Outpatient (AMB) | payer OTHER, SELFPAY ==
--- NOTE | 2025-10-16 10:05 | A.OFFVIS_ITS ---
VS Expanded 10/16/25 10:10 Height 5 ft 6 in Weight 176 lb BMI 28.4 Intake Visit Reasons: IFG Allergies sertraline Adverse Reaction (Intermediate, Verified 10/03/25 15:38) memory issues Nutrition Presentation Details: Pt presents for MNT for pre diabetes Pt reports having joined the gym and participating in the gym on and off Working on motivation to continue diet modifications. has a BP machine, has not started using it. BS Monitoring Most Recent Diabetes Results: Creatinine, (0.5-1.4) 0.94 mg/dL 09/19/25 BUN, (9-16) 14 mg/dL 09/19/25 Sodium, (135-145) 139 mmol/L 09/19/25 Potassium, (3.3-5.1) 4.8 mmol/L 09/19/25 Chloride, (96-108) 105 mmol/L 09/19/25 Carbon Dioxide, (22-29) 27 mmol/L 09/19/25 Calcium, (8.4-10.2) 9.0 mg/dL 09/19/25 AST, (5-31) 22 U/L 09/19/25 ALT, (0-31) 25 U/L 09/19/25 Total Protein, (6.5-8.0) 7.4 g/dL 09/19/25 Albumin, (3.5-5.0) 4.4 g/dL 09/19/25 [facility] [place] Medical History History of adenomatous polyp of colon Colon cancer screening Endocervical polyp History of pulmonary embolism Factor 5 Leiden mutation, heterozygous Surgical History Hx of colonoscopy Lumbar disc herniation Family History Father [place] cell carcinoma Stroke Mother Stroke Diabetes Myocardial infarction Brother Leukemia Paternal Aunt Leukemia Esophageal cancer Paternal Uncle Leukemia Paternal Grandfather Stroke Social History Household Members Other:: niece Housing: House Are you a primary day care home mother to a significant other at home: No Do you presently have visiting nurse or other home services: No Alcohol intake: current Alcohol intake frequency: holidays/special occasions only Comment: 1-2 a month 2-3 drinks Patient Tobacco Use Status: Never used Tobacco e-Cigarette/Vaping Use: Never Used Second Hand Smoke Exposure: No service: No Current occupational status: employed 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 Current occupational exposures/hazards: No Cognitive needs: No Hearing needs: No Vision needs: No Assessment & Plan Assessment & Plan (1) Impaired fasting blood sugar: Code(s): R73.01 - Impaired fasting glucose Category: Medical Plan: Wt: 80 Kg ( 11/08 ), 02/07, 05/10,11/09 Est kcal needs as per MSJ: [id number] (40% carb, 30% pr otein/fat) Est fluid needs as per 25-30 ml/d: 2400 Est prot per day as per 1 g/kg bw: 80 Recommend fiber intake : 8-10 g per day and gradually increase to 25-28 g per day for women and 35-38 g for men or as tolerated Recommend sodium intake per day : less than 2300 mg Educated patient on: ( R = reviewed V = verbalizes understanding N/R = needs review N/A = not applicable * Food sources of carbohydrate, adequate serving sizes and its role in various health conditions: R ,V * Differences between complex carbohydrates a simple carbohydrates, role of fiber in diet: R , V * Lean protein sources of foods: R ,V * Differences between types of fats and role in diet (mono on saturated fat fatty acids, saturated fatty acids, trans fats): R * Food sources of sodium in salt and healthy modifications for heart health in kidney health: R V * Vitamins and minerals: R * Healthy plate method concept: R * Physical activity: Benefits a precaution: R * Hypoglycemia protocol (rule of 15): R V N/R * Dietary prevention of Hyperglycemia: R Patient Instructions: Restart physical activity 3 times week, at least 30 minutes Replace pastries with a fruit (aim at least 2 fruits a day ), choose foods as snack that are naturally low in sodium Coding Level of Care Code Nutr Indiv Subseq (60631) Diagnoses Impaired fasting blood sugar R73.01 Time Spent (min) 30
[2025-10-16 10:10] VITALS: BMI 28.4
--- OUTSIDE RECORDS SUMMARY | 2025-10-16 12:15 | XMS_ITS | Clinical Summary ---
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 PAP SMEAR (THIN PREP) CE: SPECIMEN ADEQUACY: Satisfactory for evaluation; transformation zone present. INTERPRETATION: NEGATIVE FOR INTRAEPITHELIAL LESION OR MALIGNANCY. Coccobacilli consistent with shift in chanelle This specimen was analyzed by the automated ThinPrep Imaging System ([employer] and manually rescreened by a scrap baller and/or pathologist. Electronically Signed Out By: MD [...] 59, 66, 68) Note: Testing performed by [employer] HR-HPV analysis. Clinical correlation is advised. This HPV test was performed at [address] This test has been FDA approved for both SurePath and ThinPrep cervical cytology specimens. The accuracy and precision of this test for all other specimen sources has been verified in the Cytopathology Laboratory of the [facility] and has not been cleared or approved by the U.S. Food and Drug Administration. Clinical correlation is advised. CLINICAL HISTORY Date of Last Menstrual Period: 07-22-2024 Other Clinical Conditions: Screening Pap SPECIMEN SOURCE A: PAP SMEAR (THIN PREP) CE Patient Name: XOCHITL RICH : 1975 (Age: 48) Sex: F Institution: [facility] Location: [facility] Date of Collection: 08/16/2024 Date of Reported: 08/19/2024 15:40 Results to: Marysol Garcia MD [facility] Final Diagnosis A. PAP SMEAR (THIN PREP) CE: SPECIMEN ADEQUACY: Satisfactory for evaluation; transformation zone present. INTERPRETATION: NEGATIVE FOR INTRAEPITHELIAL LESION OR MALIGNANCY. Coccobacilli consistent with shift in chanelle This specimen was analyzed by the automated ThinPrep Imaging System ([employer] and manually rescreened by a scrap baller and/or pathologist. [facility] Results\Inte rpretation A. PAP SMEAR (THIN PREP) CE: Human Papilloma Virus TestNEGATIVE for high-risk Human Papilloma Virus types 16, 18, 45 and the Other high risk probe set (Includes 31, 33, 35, 39, 51, 52, 56, 58, 59, 66, 68)Note: Testing performed by [employer] On[employer]arity HR-HPV analysis. Clinical correlation is advised. This HPV test was performed at [address] This test has been FDA approved for both SurePath and ThinPrep cervical cytology specimens. The accuracy and precision of this test for all other specimen sources has been verified in the Cytopathology Laboratory of the [facility] and has not been cleared or approved by the U.S. Food and Drug Administration. Clinical correlation is advised. [facility] Conversion Type (Conversion Source) 08/16/2024 08/17/2024 11:21 AM EDT Marysol Garcia MD CYTOLOGY ORDERABLES Edited Result - Final [facility] [address] [place] [address] from Last 3 Months or Most Recently Relevant to Health Maintenance Insurance O O O O O O Care Teams Product Strategy Director Relationship Specialty Start Date End Date Po, Merlin Pizarro MD [address] [place] [id number] PCP - General Internal Medicine 10/05/17 Marysol Garcia MD [address] [facility], [address] [place] [address] [email or web address] Historical LMR Provider 09/02/17 Additional Source Comments The information contained in this document represents components of the legal health record. It is not the complete legal health record.[facility]
== END 2025-10-16 10:50 | disposition home or self-care (01) ==
LOC: HO.ENCR 10:03
PROVIDERS: PCP Internal Medicine; Visit Provider Dietitian, Registered
DX: R73.01 Impaired fasting glucose (principal)

== ENCOUNTER → 2025-10-16 10:02 | Outpatient (BNVA) | payer OTHER, SELFPAY | PROVIDERS: PCP Internal Medicine; Visit Provider Dietitian, Registered | DX: R73.01 Impaired fasting glucose (principal); Z71.3 Dietary counseling and surveillance | CPT/HCPCS: 97803 ==

== ENCOUNTER 2025-10-18 11:14 | Outpatient (AMB) | payer OTHER, SELFPAY ==
[2025-10-18 11:42] VITALS: BP 138/80; PULSE 83; RESP 18; O2SAT 98; BMI 27.3
--- NOTE | 2025-10-18 11:42 | MHC.PC.OV ---
Vital Signs 10/18/25 11:42 Height 5 ft 6 in Weight 169 lb 6 oz BMI 27.3 BP 138/80 Blood Pressure Location Lt brachial Position Sitting Respiration 18 Pulse 83 Pulse Source Pulse Oximeter Temp Source Temporal Artery Scan Pulse Oximetry (%) 98 Oxygen Delivery Method Room Air Intake Visit Reasons: very depressed needs a referral for a therapist Program Manager Required: No Accompanied by: Self / Same As Patient Allergies sertraline Adverse Reaction (Intermediate, Verified 10/18/25 11:46) memory issues Medication List - Last Reconciled 10/18/25 by Chelsea Aguilera MD albuterol sulfate 90 mcg/actuation (Ventolin HFA) 2 puffs inhalation Q4-6H PRN aspirin (Adult Aspirin Regimen) 81 mg PO DAILY blood pressure monitor (Blood Pressure Kit) As directed cholecalciferol (vitamin D3) 25 mcg PO DAILY fluticasone furoate-vilanterol 100-25 mcg/dose (Breo Ellipta) 1 inh inhalation DAILY lidocaine 5% 1 patch topical DAILY Tobacco use date assessed: 10/18/25 Dental Screening Dental Screen Date: 10/18/25 Did you have a dental visit in the last 12 months?: Yes Did you have a dental problem in the last 6 months where you did not have access to dental care?: No Was dental information given to patient?: Patient has dentist HPI HPI Comments History of Present Illness Details Patient is a 49-year-old female presenting with acute emotional distress and depression. Patient reports experiencing an acute crisis triggered by a family matter. The patient describes intense feelings of guilt, shame which have been present for the past two years but have acutely worsened due to this recent incident. Denies any SI or HI. The patient has a history of chronic depression, stating, I'm always depressed. The patient was not feeling well, reporting a rough week with significant fatigue, low motivation, and anhedonia. The patient reports sleeping more as an avoidance mechanism but had insomnia the previous night due to distress. Patient states that her PCP, Dr. Wilder, had recommended medication for depression in the past. The patient previously took sertraline but discontinued it due to side effects, including feeling emotionally blunted, poor concentration, memory issues. Current medications include Breo Ellipta, aspirin, albuterol as needed, vitamin D3, and lidocaine patches. The patient lives with one of three nieces and has other family including a cousin and an uncle. [facility] Medical History History of adenomatous polyp of colon Colon cancer screening Endocervical polyp History of pulmonary embolism Factor 5 Leiden mutation, heterozygous Surgical History Hx of colonoscopy Lumbar disc herniation Family History Father [place] cell carcinoma Stroke Mother Stroke Diabetes Myocardial infarction Brother Leukemia Paternal Aunt Leukemia Esophageal cancer Paternal Uncle Leukemia Paternal Grandfather Stroke Social History Household Members Other:: niece Housing: House Are you a primary memory care program resident to a significant other at home: No Do you presently have visiting nurse or other home services: No Alcohol intake: current Alcohol intake frequency: holidays/special occasions only Comment: 1-2 a month 2-3 drinks Patient Tobacco Use Status: Never used Tobacco e-Cigarette/Vaping Use: Never Used Second Hand Smoke Exposure: No service: No Current occupational status: employed 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 1. Little interest or pleasure in doing things: more than half the days 2. Feeling down, depressed, or hopeless: nearly every day 3. Trouble falling or staying asleep, or sleeping too much: more than half the days 4. Feeling tired or having little energy: nearly every day 5. Poor appetite or overeating: not at all 6. Feeling bad about yourself - or that you are a failure or have let yourself or your family down: more than half the days 7. Trouble concentrating on things, such as reading the newspaper or watching television: more than half the days 8. Moving or speaking so slowly that other people could have noticed. Or the opposite - being so fidgety or restless that you have been moving around a lot more than usual: not at all 9. Thoughts that you would be better off or of hurting yourself in some way: not at all Total score: 14 Depression Screening Interpretation: Positive Depression Screening Done: Yes [address]4543 - PHQ-9 Billing: Yes Source: Developed by Drs. Jimi Schwartz, Rebecca Kingsley, Austin Mata and colleagues, with an educational paige from [employer]. Thrive Questionnaire Date Thrive assessed: 10/18/25 I am a: Patient What is your living situation today?: I have a steady place to live Within the past 12 months, did the food you bought not last and you didn't have the money to get more?: Never true Within the past 12 months, did you worry whether your food would run out before you got money to buy more?: Never true Do you have trouble paying for medicines?: No Do you have trouble getting transportation to medical appointments?: No Do you have trouble paying your heating and electricity bill?: No Do you have trouble taking care of your child, family member or friend?: No Do you have trouble with day-to-day activities such as bathing, preparing meals, shopping, managing finances, etc.?: No Are you currently unemployed and looking for a job?: No Are you interested in more education?: Yes Please select the resources that you would like help with: None Currently or been in a relationship where the following occur: No concerns reported THRIVE Score: 0 GABY-7 AMB Questionnaire GABY-7 Date GABY - 7 assessed: 12/26/24 Source: Developed by Drs. Jimi Schwartz, Rebecca Kingsley, Austin Mata and colleagues, with an educational paige from [employer]. Physical exam (Primary Care) Vital Signs: Last Vital Signs Pulse 83 10/18/25 11:42 Resp 18 10/18/25 11:42 BP 138/80 10/18/25 11:42 Pulse Ox 98 10/18/25 11:42 Oxygen Delivery Method Room Air 10/18/25 11:42 General: Well-appearing, alert, oriented ?3. Cardiovascular: RRR, S1-S2 appreciated, no murmurs, rubs or gallops. Respiratory: Lungs clear to auscultation bilaterally, no wheezes, rales or rhonchi. Psychiatry: Tearful, sad affect and crying throughout the visit. BMI result Body Mass Index 27.3 Tobacco/Smoking Status: Tobacco use Status Tobacco use date assessed 10/18/25 10/18/25 11:49 Patient Tobacco Use Status Never used Tobacco 10/18/25 11:49 Tobacco use type 12/26/24 12:11 e-Cigarette/Vaping Use Never Used 10/18/25 11:49 Depression Screening Interpretation: Positive Thrive Assessment: Date of Thrive Assessment Date Thrive assessed 10/18/25 10/18/25 11:49 Currently or been in a relationship where the following occur: No concerns reported Coding Level of Care Code Est Pt Level 5 (38508) Diagnoses Moderate episode of recurrent major depressive disorder F33.1 Active/Remission status: currently active Major depression episode severity: moderate Additional Codes PHQ-9 - 47986 - PHQ-9 Billing: Yes ([id number]) Time Spent (min) 50 Assessment & Plan Assessment & Plan (1) Recurrent major depression: Code(s): F33.9 - Major depressive disorder, recurrent, unspecified Category: Medical Qualifiers: Active/Remission status: currently active Major depression episode severity: moderate Qualified Code(s): F33.1 - Major depressive disorder, recurrent, moderate Plan: The patient presents with an acute exacerbation of chronic depression, precipitated by a major psychosocial stressor. Symptoms of depressed mood, anhedonia, fatigue, sleep disturbance, feelings of worthlessness, and excessive guilt are consistent with a major depressive episode. PHQ-9 score of 14 consistent with moderate severity episode. Denies any suicidal or homicidal ideation. Patient did not tolerate sertraline well in the past. will start escitalopram 10 mg daily. Urgent Referral to counselling services provided. follow-up in 2-4 weeks to monitor medication tolerance and response. If any thoughts of harming yourself or anyone else, please go to the nearest emergency room or call 911 immediately. Plan I had a detailed discussion with the patient, who presented in acute emotional distress. We reviewed the recent psychosocial stressor that has exacerbated the patient's chronic depression. I acknowledged the intense feelings of guilt and shame the patient is experiencing and validated the desire for therapy. I discussed the diagnosis of depression and the options for treatment, including both psychotherapy and pharmacotherapy. We reviewed the patient's prior negative experience with sertraline, which involved significant cognitive side effects. I proposed a trial of a different SSRI, escitalopram, and explained its mechanism of action, potential benefits, and the typical 2-4 week timeframe for onset of effect. The patient agreed to start the medication to help navigate the upcoming holiday season. I provided extensive counseling on the importance of self-care, processing grief and guilt, healthier coping mechanism and strategies for communicating with family. The plan for an urgent therapy referral and a follow-up visit in 2-4 weeks was established and agreed upon by the patient. Patient was informed and verbally consented to the use of an ambient scribe for clinic note documentation during this visit. Orders: Referrals Counseling Referral F33.9 - Major depressive disorder, recurrent, unspecified Medications: New escitalopram oxalate 10 mg PO DAILY 30 tabs 2RF
--- OUTSIDE RECORDS SUMMARY | 2025-10-18 13:28 | XMS_ITS | Clinical Summary ---
Author Organization [facility] it Address [address] [place] [address] Care Team Providers Care Global Sales Executive Name Role Phone Unavailable Primary Care Provider [...] Last Done Comments Breast Cancer Screening 1975 Colorectal Cancer Screening: Colonoscopy 1975 Hepatitis B Vaccines (1 of 3 - 19+ 3-dose series) 1994 Cervical Cancer Screening: P ap Smear 1996 HIV Screening 08/25/2024 Hepatitis C Screening 08/25/2024 Social Influencers of Health Screening 08/25/2024 Depression Screening 11/16/2024 COVID-19 Vaccine (3 - 2024-2 6 season) 2025 01/07/2021, 12/10/2020 Influenza Vaccine (#1) 2025 , 09/16/2019 DTaP,Tdap,and Td Vaccines (2 - Td or Tdap) 04/18/2026 04/18/2016 RSV Immunization Adult Patients (1 - 1-dose 75+ series) 2050 HIB Vaccines Aged Out No longer eligi [...] age to complete this topic Pneumococcal Vaccine: Pediatrics (0 to 5 Years) and At-Risk Patients (6 to 49 Years) Aged Out No longer eligible b ased on patient's age to complete this topic RSV Immunization Patients Under 20 months Aged Out No longer eligible b ased on patient's age to complete this topic Varicella Vaccines Aged Out No longer eligible based on patient's age to complete this topic
== END 2025-10-18 12:51 | disposition home or self-care (01) ==
LOC: HO.HMCH 11:15
PROVIDERS: PCP Internal Medicine; Visit Provider Student in an Organized Health Care Education/Training Program
DX: F33.1 Major depressive disorder, recurrent, moderate (principal)

== ENCOUNTER → 2025-10-18 11:14 | Outpatient (BNVA) | payer OTHER, SELFPAY | PROVIDERS: PCP Internal Medicine; Visit Provider Student in an Organized Health Care Education/Training Program | DX: F33.1 Major depressive disorder, recurrent, moderate (principal); Z13.31 Encounter for screening for depression | CPT/HCPCS: 96127 ==

== ENCOUNTER 2025-11-07 08:51 | Outpatient (AMB) | payer OTHER, SELFPAY ==
[2025-11-07 09:08] VITALS: BP 120/66; PULSE 76; TEMP 36; O2SAT 97; BMI 26.5
--- NOTE | 2025-11-07 09:08 | MHC.PC.OV ---
Vital Signs 11/07/25 09:08 Height 5 ft 6 in Weight 164 lb 8 oz BMI 26.5 BP 120/66 Blood Pressure Location Lt brachial Position Sitting Pulse 76 Pulse Source Pulse Oximeter Temp 96.8 F Temp Source Temporal Artery Scan Pulse Oximetry (%) 97 Oxygen Delivery Method Room Air Intake Visit Reasons: Follow Up Hand Sizer Required: No Fur Mixer Operator: Not Required per policy Accompanied by: Self / Same As Patient Allergies sertraline Adverse Reaction (Intermediate, Verified 11/07/25 09:08) memory issues Medication List - Last Reconciled 11/07/25 by Chelsea Aguilera MD albuterol sulfate 90 mcg/actuation (Ventolin HFA) 2 puffs inhalation Q4-6H PRN aspirin (Adult Aspirin Regimen) 81 mg PO DAILY blood pressure monitor (Blood Pressure Kit) As directed cholecalciferol (vitamin D3) 25 mcg PO DAILY escitalopram oxalate 10 mg PO DAILY fluticasone furoate-vilanterol 100-25 mcg/dose (Breo Ellipta) 1 inh inhalation DAILY lidocaine 5% 1 patch topical DAILY Tobacco use date assessed: 11/07/25 Dental Screening Dental Screen Date: 10/18/25 HPI HPI Comments History of Present Illness Details Patient is a 49-year-old female with generalized anxiety disorder, depression and factor V laden mutation presenting for follow up. Patient was last seen on 10/18/2025 for acute emotional distress and exacerbation of her depression following a recent family matter. She was started on escitalopram 10 mg daily and refer to counseling services at that time. Today, patient reports the medication is helping her feel calmer and less overwhelmed, but also notes emotional blunting as a side effect. She has not started therapy yet as she got scheduled for a session in November 2025. Patient has a history of prediabetes with most recent hemoglobin A1c 5.8 in 09/2025, managed with diet and exercise. Has a history of factor V Leiden mutation for which she is on aspirin 81 mg daily. Blood work from September was reviewed and showed normal CBC, electrolytes, kidney function, and liver function. Her cholesterol was normal a year ago. COUNT INCLUDES [facility] Medical History History of adenomatous polyp of colon Colon cancer screening Endocervical polyp History of pulmonary embolism Factor 5 Leiden mutation, heterozygous Surgical History Hx of colonoscopy Lumbar disc herniation Family History Father [place] cell carcinoma Stroke Mother Stroke Diabetes Myocardial infarction Brother Leukemia Paternal Aunt Leukemia Esophageal cancer Paternal Uncle Leukemia Paternal Grandfather Stroke Social History Household Members Other:: niece Housing: House Are you a primary care support representative to a significant other at home: No Do you presently have visiting nurse or other home services: No Alcohol intake: current Alcohol intake frequency: holidays/special occasions only Comment: 1-2 a month 2-3 drinks Patient Tobacco Use Status: Never used Tobacco e-Cigarette/Vaping Use: Never Used Second Hand Smoke Exposure: No service: No Current occupational status: employed 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 Current occupational exposures/hazards: No Cognitive needs: No Hearing needs: No Vision needs: No Questionnaire Thrive Questionnaire Date Thrive assessed: 12/26/24 I am a: Patient What is your living situation today?: I have a steady place to live Within the past 12 months, did the food you bought not last and you didn't have the money to get more?: Never true Within the past 12 months, did you worry whether your food would run out before you got money to buy more?: Never true Do you have trouble paying for medicines?: No Do you have trouble getting transportation to medical appointments?: No Do you have trouble paying your heating and electricity bill?: No Do you have trouble taking care of your child, family member or friend?: No Do you have trouble with day-to-day activities such as bathing, preparing meals, shopping, managing finances, etc.?: No Are you currently unemployed and looking for a job?: No Are you interested in more education?: Yes Currently or been in a relationship where the following occur: No concerns reported THRIVE Score: 0 GABY-7 AMB Questionnaire GABY-7 Date GABY - 7 assessed: 12/26/24 Source: Developed by Drs. Jimi Schwartz, Rebecca Kingsley, Austin Mata and colleagues, with an educational paige from [employer]. Physical exam (Primary Care) Vital Signs: Last Vital Signs Temp 96.8 F 11/07/25 09:08 Pulse 76 11/07/25 09:08 BP 120/66 11/07/25 09:08 Pulse Ox 97 11/07/25 09:08 Oxygen Delivery Method Room Air 11/07/25 09:08 BMI result Body Mass Index 26.5 Tobacco/Smoking Status: Tobacco use Status Tobacco use date assessed 11/07/25 11/07/25 09:10 Patient Tobacco Use Status Never used Tobacco 11/07/25 09:10 Tobacco use type 12/26/24 12:11 e-Cigarette/Vaping Use Never Used 11/07/25 09:10 Thrive Assessment: Date of Thrive Assessment Date Thrive assessed 12/26/24 11/07/25 09:10 Currently or been in a relationship where the following occur: No concerns reported Coding Level of Care Code Est Pt Level 4 (67140) Diagnoses Moderate episode of recurrent major depressive disorder F33.1 Active/Remission status: currently active Major depression episode severity: moderate Impaired fasting blood sugar R73.01 Dyslipidemia E78.5 Assessment & Plan Assessment & Plan (1) Recurrent major depression: Code(s): F33.9 - Major depressive disorder, recurrent, unspecified Category: Medical Qualifiers: Active/Remission status: currently active Major depression episode severity: moderate Qualified Code(s): F33.1 - Major depressive disorder, recurrent, moderate (2) Impaired fasting blood sugar: Code(s): R73.01 - Impaired fasting glucose Category: Medical (3) Dyslipidemia: Code(s): E78.5 - Hyperlipidemia, unspecified Plan Patient was last seen on 10/18/2025 for acute emotional distress and exacerbation of her depression following a recent family matter. She was started on escitalopram 10 mg daily and refer to counseling services at that time. Today, patient reports the medication is helping her feel calmer and less overwhelmed, but also notes emotional blunting as a side effect. She is managing better. She has not started therapy yet as she got scheduled for a session in November 2025, but feels like she needs a session sooner. Continue on escitalopram 10 mg daily, advised patient to at least continue on it for 6 months before considering tapering her off the medication. Needs to get started with therapy advised to call them to to see if there is any availability sooner. Patient with history of prediabetes, managed with diet and exercise. Last A1c 5.8 from September 2025. Repeat A1c prior to her next follow up visit with her PCP with her PCP. Repeat lipid panel as well for history of dyslipidemia. Orders: Orders Lipid Panel with Reflex 6 Weeks Z13.220 - Encounter for screening for lipoid disorders Hemoglobin A1c 6 Weeks R73.03 - Prediabetes
--- OUTSIDE RECORDS SUMMARY | 2025-11-07 09:12 | XMS_ITS | Clinical Summary ---
Author Organization [facility] it Address [address] [place] [address] Care Team Providers Care Veneer Measurer Name Role Phone Unavailable Primary Care Provider [...]
--- OUTSIDE RECORDS SUMMARY | 2025-11-07 09:12 | XMS_ITS | Clinical Summary ---
Author Organization [facility] Address [address] [place] [address] Phone Care Team Providers Care Drafter Seismograph Name Role Phone Marysol Garcia MD Unavailable [phone] Merlin Wilder MD Primary Care Provider [phone] Allergies Active Allergy Reactions Criticality Noted Date Comments Sertraline Mental Status Change High 10/18/2024 Short term memory issues Medications aspirin 81 mg chewable tabletIndication s:Other pulmonary embolism without acute cor pulmonale, unspecified chronicity Active BREO ELLIPTA 100-25 mcg/dose inhaler Inhale 1 puff into the lungs daily. 02/03/20 24 Active escitalopram oxalate (LEXAPRO) 10 MG tablet Take 1 tablet by mouth every morning. 10/18/20 25 Active cholecalciferol (VITAMIN D3) 25 MCG (1,000 unit) tablet Take 1,000 Units by mouth daily. Active multivitamin with minerals Take by mouth. 025 Discontin ued(No longer taking) coenzyme Q10 100 mg capsule Take 100 mg by mouth daily. 025 Discontin ued(No longer taking) prasterone, dhea, 25 mg Cap Take by mouth. 10/26 025 Discontin ued(No longer taking) progesterone (PROMETRIUM) 200 mg capsuleIndicatio ns:Irregular menstrual cycle Take 1 capsule (200 mg total) by mouth nightly at bedtime. Can also insert vaginally as an alternative 12 capsule 03/08/20 24 025 Discontin ued(No longer taking) Active Problems Problem Noted Date Diagnosed Date [...] the infertility treatments in her early 40s. Pulmonary embolism 10/05/2017 Overview (02/15/2021): 2010 after back surgery Resolved Problems Problem Noted Date Diagnosed Date Resolved Date Brunilda vaginitis 10/01/2018 03/08/2024 Female infertility 10/16/2017 5 Overview (12/09/2019): Normal HSG 10/16/2017 IUIs #5 done with [facility] DONNELL Assessment & Plan (02/15/2021 9:27 AM EDT): Considering with [facility] currently embryo adoption Assessment & Plan (12/09/2019 10:34 AM EST): She is open to adoption and donor embryos Assessment & Plan (10/16/2017 2:34 PM EST): HSG performed and normal appearing cavity and bilateral fill and spill. 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 file Not on file Not on file Last Filed Vital Signs Vital Sign Reading Time Taken Comments Blood Pressure 108/74 10/26/2025 11:09 AM EST Pulse - - Temperature - - Respiratory Rate - - Oxygen Saturation - - Inhaled Oxygen Concentration - - Weight 76.7 kg (169 lb) 10/26/2025 11:09 AM EST Height 167.6 cm (5' 6 ) 08/16/2024 10:05 AM EDT Body Mass Index 27.28 08/16/2024 10:05 AM EDT Plan of Treatment Health Maintenance Due Date Last Done Comments LIPID PANEL 1975 DEPRESSION SCREENING 1987 HEPATITIS C SCREENING 1993 HIV ONE-TIME SCREENING (18-65 YEARS) 1993 SCREENING FOR DIABETES 2010 MAMMOGRAM 2015 COLOGUARD 2020 COLONOSCOPY 2020 COLORECTAL CANCER SCREENING 2020 FIT TEST 2020 FOBT 2020 SIGMOIDOSCOPY 2020 VIRTUAL COLONOSCOPY 2020 COVID-19 VACCINE (2024- season) 2025 04/30/2022, 01/07/2021, 12/10/2020 Adult Td,Tdap Booster 04/18/2026 04/18/2016 PAP SMEAR 08/16/2027 08/16/2024, 11/17, 12/09/2019, Additional history exists INFLUENZA VACCINE Completed 10/03/2025, , 12/22/2023, Additional history exists SMOKING STATUS SCREENING (Once After 26 Yrs) Completed 10/26/2025 HEPATITIS A VACCINES Aged Out No long [...] Procedure Name Priority Date/Time Associated Diagnosis Comments TISSUE EXAM Routine 10/26/2025 1:16 PM EST Vulvar warts PAP TEST Routine 08/16/2024 12:00 AM EDT from Last 3 Months or Most Recently Relevant to Health Maintenance Results * Tissue Exam (10/26/2025 1:16 PM EST) Final Pathologic Diagnosis A. LABIA; ? CONDYLOMA; BIOPSY: Pigmented seborrheic keratosis with verrucous architecture. 10/30/2025 12:30 PM [facility] at 1230 EST Clinical History Vulvar skin growths 10/30/2025 12:30 PM [facility] Gross Description A. LABIA; ? CONDYLOMA: Received in formalin is a 0.4 x 0.4 x 0.2 cm irregular portion of manzo skin excised to a max depth of 0.1 cm which is submitted in toto in a single cassette labeled A1. 10/30/2025 12:30 PM [facility] Grossed By Kushal Robledo 10/30/2025 12:30 PM [facility] Result Priority Level Routine 10/30/2025 12:30 PM [facility] Disclaimer By their signature above, the pathologist listed as making the Final Diagnosis certifies that they have personally reviewed the case and confirmed the diagnosis. All slides and stains were of sufficient quality to establish the diagnosis, unless otherwise stated. Due to loss of elastic tension and/or tissue shrinkage in formalin, the clinical sizes of tissue specimens may be larger than those provided in this report. 10/30/2025 12:30 PM [facility] Tissue - General (Labia) Non-Blood Collection / Unknown 10/26/2025 1:16 PM EST 10/26/2025 1:16 PM EST us Marysol Garcia MD LAB PATHOLOGY ORDERABLES F inal Result [address] [address] * Pap Test (08/16/2024 12:00 AM EDT) Report [address] [address] Coil Winder: Caleb Jeffrey MD SENSOR OPERATOR Cytology Report FINAL DIAGNOSIS A. PAP SMEAR (THIN PREP) CE: SPECIMEN ADEQUACY: Satisfactory for evaluation; transformation zone present. INTERPRETATION: NEGATIVE FOR INTRAEPITHELIAL LESION OR MALIGNANCY. Coccobacilli consistent with shift in chanelle This specimen was analyzed by the automated ThinPrep Imaging System ([employer] and manually rescreened by a inflatable buildings laminator and/or pathologist. Electronically Signed Out By: MD Kemi Castillo CT(ASC) By his/her signature above, the pathologist listed [...] 59, 66, 68) Note: Testing performed by [employer] HR-HPV analysis. Clinical correlation is advised. This HPV test was performed at [facility], [address] [place] [address]. This test has been FDA approved for both SurePath and ThinPrep cervical cytology specimens. The accuracy and precision of this test for all other specimen sources has been verified in the Cytopathology Laboratory of the [facility] and has not been cleared or approved by the U.S. Food and Drug Administration. Clinical correlation is advised. CLINICAL HISTORY Date of Last Menstrual Period: 07-22-2024 Other Clinical Conditions: Screening Pap SPECIMEN SOURCE A: PAP SMEAR (THIN PREP) CE Patient Name: XOCHITL RICH : 1975 (Age: 48) Sex: F Institution: [facility] Location: [facility] Date of Collection: 08/16/2024 Date of Reported: 08/19/2024 15:40 Results to: Marysol Garcia MD [facility] Final Diagnosis A. PAP SMEAR (THIN PREP) CE: SPECIMEN ADEQUACY: Satisfactory for evaluation; transformation zone present. INTERPRETATION: NEGATIVE FOR INTRAEPITHELIAL LESION OR MALIGNANCY. Coccobacilli consistent with shift in chanelle This specimen was analyzed by the automated ThinPrep Imaging System ([employer] and manually rescreened by a inflatable buildings laminator and/or pathologist. [facility] Results\Inte rpretation A. PAP SMEAR (THIN PREP) CE: Human Papilloma Virus TestNEGATIVE for high-risk Human Papilloma Virus types 16, 18, 45 and the Other high risk probe set (Includes 31, 33, 35, 39, 51, 52, 56, 58, 59, 66, 68)Note: Testing performed by [employer] HR-HPV analysis. Clinical correlation is advised. This HPV test was performed at [facility], [address] [place] [address]. This test has been FDA approved for both SurePath and ThinPrep cervical cytology specimens. The accuracy and precision of this test for all other specimen sources has been verified in the Cytopathology Laboratory of the [facility] and has not been cleared or approved by the U.S. Food and Drug Administration. Clinical correlation is advised. [facility] Conversion Type (Conversion Source) 08/16/2024 08/17/2024 11:21 AM EDT Marysol Garcia MD CYTOLOGY ORDERABLES Edited Result - Final [facility] [address] [place] [address] from Last 3 Months or Most Recently Relevant to Health Maintenance [place] [address] [address] HMO O O O HMO O O [facility] [place] [facility] Address: [address] [address] Care Teams Drafter Seismograph Relationship Specialty Start Date End Date Po, Merlin Pizarro MD [address] [place] [address] [address] [place] [address] PCP - General Internal Medicine 10/05/17 Marysol Garcia MD [address], [address] [place] [address] [email or web address] Historical LMR Provider 09/02/17 Additional Source Comments The information contained in this document represents components of the legal health record. It is not the complete legal health record.[facility]
== END 2025-11-07 10:34 | disposition home or self-care (01) ==
LOC: HO.HMCH 08:52
PROVIDERS: PCP Internal Medicine; Visit Provider Student in an Organized Health Care Education/Training Program
DX: F33.1 Major depressive disorder, recurrent, moderate (principal); R73.01 Impaired fasting glucose; E78.5 Hyperlipidemia, unspecified